=== PATIENT | female | born 1990 | race Caucasian/White ===

== ENCOUNTER 2021-03-17 19:03 | Outpatient (CLI) | payer OTHER | END 2021-03-17 23:59 | disposition home or self-care (01) | LOC: LAB.S 19:03 | PROVIDERS: ATTEND Physician Assistant Medical | DX: R52 Pain, unspecified (principal); Z20.822 Contact with and (suspected) exposure to COVID-19 ==

== ENCOUNTER 2021-04-14 16:14 | Outpatient (CLI) | payer OTHER | END 2021-04-14 16:15 | disposition home or self-care (01) | LOC: LAB.S 16:14 | PROVIDERS: ATTEND Obstetrics & Gynecology | DX: E55.9 Vitamin D deficiency, unspecified (principal) | CPT/HCPCS: 82306 ==

== ENCOUNTER 2021-06-24 13:15 | Outpatient (CLI) | payer OTHER ==
[2021-06-25 09:52] LABS: BILIRUBIN,URINE NEGATIVE (NEGATIVE); GLUCOSE, URINE (UA) NEGATIVE (NEGATIVE); KETONES,URINE (UA) NEGATIVE (NEGATIVE); LEUKOCYTE ESTERASE, URINE NEGATIVE (NEGATIVE); NITRITE,URINE NEGATIVE (NEGATIVE); OCCULT BLOOD,URINE NEGATIVE (NEGATIVE); PROTEIN,URINE NEGATIVE (NEGATIVE); UROBILINOGEN,URINE 0.2 (NORMAL) E.U./dL (NORMAL)
[2021-06-25 09:54] LABS: CLARITY,URINE CLEAR (CLEAR)
[2021-06-25 10:58] LABS: BACTERIA,URINE None Seen /HPF (None Seen); RBC,URINE 0-5 /HPF (0-5); SQUAMOUS EPITHELIAL CELL,UR RARE Squamous (<= Few); WBC,URINE 0-3 /HPF (0-5)
== END 2021-06-24 13:16 | disposition home or self-care (01) ==
LOC: LAB 13:15 → LAB.R 13:16
PROVIDERS: ATTEND Obstetrics & Gynecology
DX: Z32.01 Encounter for pregnancy test, result positive (principal)
CPT/HCPCS: 81001; 87086

== ENCOUNTER 2021-06-30 07:17 | Outpatient (CLI) | payer OTHER ==
--- NOTE | 2021-06-30 15:46 | Ultrasound Report ---
PROCEDURE: OB First Trimester w/TV INDICATIONS: POSITIVE TEST OUTSIDE/PRIOR DATING DATA: Last menstrual period (LMP): 05/10/2021. LMP-based estimated date of delivery (KURT): 02/14/2022. First dating scan (date and location): 06/30/2021. Estimated date of delivery (KURT) from first dating scan: 02/22/2022. TECHNIQUE: Real-time scanning was performed of the fetus and maternal pelvic organs, with image documentation. Endovaginal scanning was also performed to better visualize the fetus and maternal ovaries. COMPARISON: None FINDINGS: Embryo: Single live intrauterine with crown-rump length measuring 0.47 cm measuring 6 week s 1 day Heart rate: heart rate measures 123 bpm. Measurement variability in dating: +/- 4 weeks by LMP, +/- 7 days by mean sac diameter (use before 6 weeks gestation if crown-rump length not able to be measured), +/- 5 days by crown-rump length (6-12 weeks gestation). Maternal organs: Ovaries demonstrate a corpus luteum left ovarian cyst. She is. IMPRESSION: 1. Single live intrauterine measuring 6 weeks 1 day. 2. Recommend follow-up ultrasound for dates and anatomy at 20-22 weeks. Reviewed by: Gabrielle Haskins MD on 06/30/2021 3:44 PM PST Approved by: Gabrielle Haskins MD on 06/30/2021 3:44 PM PST Station ID: [id number]
== END 2021-06-30 07:18 | disposition home or self-care (01) ==
LOC: DI 07:17
PROVIDERS: ATTEND Obstetrics & Gynecology
DX: Z32.01 Encounter for pregnancy test, result positive (principal); O99.891 Other specified diseases and conditions complicating pregnancy; M32.9 Systemic lupus erythematosus, unspecified; O99.280 Endocrine, nutritional and metabolic diseases complicating pregnancy, unspecified trimester; E06.3 Autoimmune thyroiditis; Z36.89 Encounter for other specified antenatal screening; Z3A.01 Less than 8 weeks gestation of pregnancy
CPT/HCPCS: 36415; 81001; 81599; 84443; 85025; 86592; 86762; 86803; 86850; 86900; 86901; 87086; 87340; 87389

== ENCOUNTER 2021-06-30 08:09 | Outpatient (CLI) | payer OTHER ==
[2021-06-30 09:02] LABS: BASOPHILS % (AUTO) 0.5 %; EOSINOPHILS # (AUTO) 0.1 10^3/uL (0.0-0.7); EOSINOPHILS % (AUTO) 1.3 %; HCT - HEMATOCRIT 37.9 % (37.0-47.0); HGB - HEMOGLOBIN 12.9 g/dL (12.0-16.0); LYMPHOCYTES # (AUTO) 2.1 10^3/uL (1.5-3.5); LYMPHOCYTES % (AUTO) 25.6 %; MEAN CORPUSCULAR HEMOGLOBIN 31.2 pg (27.0-31.0); MEAN CORPUSCULAR VOLUME 91.5 fL (81.0-99.0); MEAN PLATELET VOLUME 8.9 fL (7.9-10.8); MONOCYTES # (AUTO) 0.5 10^3/uL (0.0-1.0); MONOCYTES % (AUTO) 5.9 %; NEUTROPHILS # (AUTO) 5.5 10^3/uL (1.5-6.6); NEUTROPHILS % (AUTO) 66.3 %; PLT - PLATELET COUNT 321 10^3/uL (130-450); RED BLOOD COUNT 4.14 10^6/uL (4.20-5.40); RED CELL DISTRIBUTION WIDTH 12.9 % (12.0-15.0); WHITE BLOOD COUNT 8.3 x10^3/uL (4.8-10.8)
[2021-06-30 10:13] LABS: THYROID STIMULATING HORMONE 0.96 uIU/mL (0.34-5.60)
[2021-06-30 16:34] LABS: BILIRUBIN,URINE NEGATIVE (NEGATIVE); GLUCOSE, URINE (UA) NEGATIVE (NEGATIVE); KETONES,URINE (UA) NEGATIVE (NEGATIVE); LEUKOCYTE ESTERASE, URINE NEGATIVE (NEGATIVE); NITRITE,URINE NEGATIVE (NEGATIVE); OCCULT BLOOD,URINE NEGATIVE (NEGATIVE); PROTEIN,URINE NEGATIVE (NEGATIVE); UROBILINOGEN,URINE 0.2 (NORMAL) E.U./dL (NORMAL)
[2021-06-30 16:36] LABS: CLARITY,URINE CLEAR (CLEAR)
[2021-06-30 16:47] LABS: BACTERIA,URINE Rare /HPF (None Seen); RBC,URINE 0-5 /HPF (0-5); SQUAMOUS EPITHELIAL CELL,UR NONE SEEN (<= Few); WBC,URINE 0-3 /HPF (0-5)
[2021-07-02 14:15] LABS: HIV AG/AB 4TH GEN NON-REACTIVE (NON-REACTIVE)
[2021-07-02 14:47] LABS: HEPATITIS B SURFACE ANTIGEN NON-REACTIVE (NON-REACTIVE); HEPATITIS C ANTIBODY NON-REACTIVE (NON-REACTIVE)
== END 2021-06-30 08:10 | disposition home or self-care (01) ==
LOC: LAB 08:09
PROVIDERS: ATTEND Obstetrics & Gynecology
DX: O99.891 Other specified diseases and conditions complicating pregnancy (principal); M32.9 Systemic lupus erythematosus, unspecified; O99.280 Endocrine, nutritional and metabolic diseases complicating pregnancy, unspecified trimester; E06.3 Autoimmune thyroiditis; Z36.89 Encounter for other specified antenatal screening
CPT/HCPCS: 36415; 81001; 81599; 84443; 85025; 86592; 86762; 86803; 86850; 86900; 86901; 87086; 87340; 87389

== ENCOUNTER 2021-07-04 15:14 | Outpatient (CLI) | payer OTHER ==
[2021-07-04 18:11] LABS: ALBUMIN 3.8 g/dL (3.2-5.5); BILIRUBIN,TOTAL 0.5 mg/dL (0.2-1.0); CALCIUM 9.1 mg/dL (8.5-10.3); CREATININE 0.6 mg/dL (0.4-1.0); POTASSIUM 3.7 mmol/L (3.5-5.0); TOTAL PROTEIN 7.8 g/dL (6.7-8.2)
[2021-07-04 18:26] LABS: THYROID STIMULATING HORMONE 0.64 uIU/mL (0.34-5.60)
[2021-07-04 20:45] LABS: ESTIMATED AVERAGE GLUCOSE 97 mg/dL (70-100)
== END 2021-07-04 15:15 | disposition home or self-care (01) ==
LOC: LAB.S 15:14
PROVIDERS: ATTEND Obstetrics & Gynecology
DX: R63.1 Polydipsia (principal); Z32.01 Encounter for pregnancy test, result positive; E55.9 Vitamin D deficiency, unspecified
CPT/HCPCS: 36415; 80053; 82306; 83036; 84443

== ENCOUNTER 2021-07-22 08:02 | Outpatient (CLI) | payer OTHER ==
[2021-07-22 23:29] LABS: CHLAMYDIA TRACHOMATIS DNA NEGATIVE (NEGATIVE); NEISSERIA GONORRHOEAE DNA NEGATIVE (NEGATIVE); TRICHOMONAS VAGINALIS DNA NEGATIVE (NEGATIVE)
== END 2021-07-22 08:03 | disposition home or self-care (01) ==
LOC: LAB.R 08:02
PROVIDERS: ATTEND Obstetrics & Gynecology
DX: Z11.3 Encounter for screening for infections with a predominantly sexual mode of transmission (principal)
CPT/HCPCS: 87491; 87591; 87661

== ENCOUNTER 2021-07-30 10:22 | Outpatient (CLI) | payer OTHER ==
[2021-07-30 14:02] LABS: ALBUMIN 3.7 g/dL (3.2-5.5); ALBUMIN/GLOBULIN RATIO 0.9 (1.0-2.2); BILIRUBIN,TOTAL 0.4 mg/dL (0.2-1.0); CALCIUM 9.2 mg/dL (8.5-10.3); CREATININE 0.6 mg/dL (0.4-1.0); POTASSIUM 3.6 mmol/L (3.5-5.0); TOTAL PROTEIN 7.6 g/dL (6.7-8.2)
[2021-07-30 14:03] LABS: HCT - HEMATOCRIT 37.9 % (37.0-47.0); MEAN CORPUSCULAR HEMOGLOBIN 31.5 pg (27.0-31.0); MEAN CORPUSCULAR HGB CONC 34.3 g/dL (32.0-36.0); MEAN CORPUSCULAR VOLUME 91.8 fL (81.0-99.0); MEAN PLATELET VOLUME 9.5 fL (7.9-10.8); RED BLOOD COUNT 4.13 10^6/uL (4.20-5.40); RED CELL DISTRIBUTION WIDTH 12.9 % (12.0-15.0); WHITE BLOOD COUNT 9.6 x10^3/uL (4.8-10.8)
[2021-07-30 14:14] LABS: CREATININE,URINE 159.4 mg/dL
[2021-07-30 14:19] LABS: THYROID STIMULATING HORMONE 0.8 uIU/mL (0.34-5.60)
[2021-07-30 19:23] LABS: ESTIMATED AVERAGE GLUCOSE 97 mg/dL (70-100)
== END 2021-07-30 10:23 | disposition home or self-care (01) ==
LOC: LAB.S 10:22
PROVIDERS: ATTEND Obstetrics & Gynecology
DX: O99.891 Other specified diseases and conditions complicating pregnancy (principal); M32.9 Systemic lupus erythematosus, unspecified; O99.210 Obesity complicating pregnancy, unspecified trimester; O09.90 Supervision of high risk pregnancy, unspecified, unspecified trimester; E66.01 Morbid (severe) obesity due to excess calories
CPT/HCPCS: 36415; 80053; 82570; 83036; 84156; 84443; 85027; 86787

== ENCOUNTER 2021-08-13 17:00 | Outpatient (CLI) | payer OTHER | END 2021-08-13 17:01 | disposition home or self-care (01) | LOC: LAB 17:00 | PROVIDERS: ATTEND Obstetrics & Gynecology | DX: Z53.9 Procedure and treatment not carried out, unspecified reason (principal) ==

== ENCOUNTER 2021-08-16 16:42 | Outpatient (CLI) | payer OTHER | END 2021-08-16 16:43 | disposition home or self-care (01) | LOC: LAB 16:42 | PROVIDERS: ATTEND Obstetrics & Gynecology | DX: O09.90 Supervision of high risk pregnancy, unspecified, unspecified trimester (principal); O99.210 Obesity complicating pregnancy, unspecified trimester; E66.01 Morbid (severe) obesity due to excess calories | CPT/HCPCS: 36415; 81220 ==

== ENCOUNTER 2021-09-15 11:24 | Outpatient (CLI) | payer OTHER ==
[2021-09-15 12:50] LABS: HCT - HEMATOCRIT 35.7 % (37.0-47.0); HGB - HEMOGLOBIN 12.4 g/dL (12.0-16.0); MEAN CORPUSCULAR HEMOGLOBIN 31.9 pg (27.0-31.0); MEAN CORPUSCULAR HGB CONC 34.7 g/dL (32.0-36.0); MEAN CORPUSCULAR VOLUME 91.8 fL (81.0-99.0); MEAN PLATELET VOLUME 9.3 fL (7.9-10.8); RED BLOOD COUNT 3.89 10^6/uL (4.20-5.40); WHITE BLOOD COUNT 10.8 x10^3/uL (4.8-10.8)
[2021-09-15 13:11] LABS: % IRON SATURATION 22 % (20-50); GLUCOSE,1H PP 50GM DOSE 118; IRON 79 ug/dL (28-170); TOTAL IRON BINDING CAPACITY 353 ug/dL (250-450); TRANSFERRIN 252 mg/dL (192-382)
[2021-09-15 13:21] LABS: THYROID STIMULATING HORMONE 0.36 uIU/mL (0.34-5.60)
[2021-09-15 13:26] LABS: FERRITIN 40.6 ng/mL (11.0-306.8)
== END 2021-09-15 11:25 | disposition home or self-care (01) ==
LOC: LAB 11:24
PROVIDERS: ATTEND Obstetrics & Gynecology
DX: R20.8 Other disturbances of skin sensation (principal); R53.83 Other fatigue; R53.81 Other malaise; Z68.41 Body mass index [BMI] 40.0-44.9, adult
CPT/HCPCS: 36415; 81599; 82105; 82728; 82950; 83540; 84443; 84466; 85027

== ENCOUNTER 2021-09-27 16:17 | Emergency (ER) | payer OTHER ==
--- NOTE | 2021-09-27 16:28 | ED Physician Documentation ---
History of Present Illness - Stated complaint Stated Complaint: DECREASED MOVEMENT - Additonal information Additional information: 30-year-old female presents to the emergency department for evaluation of her . Reports being 19 weeks and has not had any movement for 2 to 3 days. She began feeling movement at approximately 14 weeks. LMP 05/10/2021. Denies any chest pain or shortness of air. No leg swelling. No nausea or vomiting. No loss of fluids or vaginal bleeding. Review of Systems Constitutional: denies: Chills Eyes: reports: Reviewed and negative Ears: reports: Reviewed and negative Nose: reports: Reviewed and negative Throat: reports: Reviewed and negative Cardiac: reports: Reviewed and negative Respiratory: reports: Reviewed and negative GI: reports: Reviewed and negative : reports: Reviewed and negative Skin: reports: Rash Musculoskeletal: reports: Neck pain PD PAST MEDICAL HISTORY - Past Surgical History Past Surgical History: No - Present Medications Home Medications: Ambulatory Orders Medication Instructions Recorded Confirmed Doxepin [SINEquan] 10 mg PO TID PRN #30 capsule 11/09/19 predniSONE [Deltasone] 20 mg PO [id number] #21 tab 11/09/19 predniSONE [Deltasone] 10 mg PO [id number] #42 tab 11/21/19 Labetalol [Trandate] 100 mg PO BID #30 tablet 09/27/21 cephALEXin [Keflex] 500 mg PO BID #14 cap 09/27/21 - Allergies Allergies/Adverse Reactions: Allergies Allergy/AdvReac Type Severity Reaction Status Date / Time Iodinated Contrast Media Allergy Unknown Verified 09/27/21 16:46 sulfamethoxazole Allergy Respiratory Verified 09/27/21 16:46 [From Bactrim] trimethoprim [From Bactrim] Allergy Respiratory Verified 09/27/21 16:46 - Social History Does the pt smoke?: No Smoking Status: Never smoker Does the pt drink ETOH?: No Does the pt have substance abuse?: No - Immunizations Immunizations are current?: Yes - POLST Patient has POLST: No PD ED PE NORMAL - General General: Alert and oriented X 3, No acute distress, Well developed/nourished - HEENT HEENT: Atraumatic, Moist mucous membranes - Neck Neck: Supple, no meningeal sign, No adenopathy - Cardiac Cardiac: RRR, No murmur, No gallop - Respiratory Respiratory: No respiratory distress, Clear bilaterally - Abdomen Abdomen: Normal bowel sounds, Soft, Non tender - Derm Derm: Normal color, Warm and dry, No rash - Extremities Extremities: No deformity, No tenderness to palpate, Normal ROM s pain - Neuro Neuro: Alert and oriented X 3, practice coordinator 2-12 intact Eye Opening: Spontaneous Motor: Obeys Commands Verbal: Oriented GCS Score: 15 - Psych Psych: Normal mood Results - Vitals Vitals: Vital Signs - 24 hr 09/27/21 09/27/21 09/27/21 16:40 17:00 17:30 Temperature 37.2 C Heart Rate 85 87 81 Respiratory 20 19 18 Rate Blood Pressure 162/109 H 158/94 H 148/88 H O2 Saturation 99 99 100 09/27/21 09/27/21 09/27/21 18:00 18:30 19:00 Temperature Heart Rate 78 75 79 Respiratory 20 15 18 Rate Blood Pressure 147/87 H 152/88 H 145/86 H O2 Saturation 100 100 99 Oxygen O2 Source Room air - Labs Labs: Laboratory Tests 09/27/21 09/27/21 09/27/21 16:46 16:46 16:54 WBC 11.9 H RBC 3.79 L Hgb 11.9 L Hct 34.9 L MCV 92.1 MCH 31.4 H MCHC 34.1 RDW 13.0 Plt Count 337 MPV 9.4 Neut # (Auto) 9.1 H Lymph # (Auto) 2.0 [place] # (Auto) 0.6 Eos # (Auto) 0.1 Baso # (Auto) 0.0 Absolute Nucleated RBC 0.00 Nucleated RBC % 0.0 Sodium 134 L Potassium 3.7 Chloride 101 Carbon Dioxide 23 Anion Gap 10.0 BUN 10 Creatinine 0.6 Estimated GFR (MDRD) 117 Glucose 94 Calcium 9.1 Total Bilirubin < 0.2 L AST 23 ALT 29 Alkaline Phosphatase 64 Total Protein 7.0 Albumin 3.2 Globulin 3.8 Albumin/Globulin Ratio 0.8 L Lipase 28 Urine Color YELLOW Urine Clarity CLEAR Urine pH 6.5 Ur Specific [place] 1.025 Urine Protein NEGATIVE Urine Glucose (UA) NEGATIVE Urine Ketones NEGATIVE Urine Occult Blood SMALL H Urine Nitrite NEGATIVE Urine Bilirubin NEGATIVE Urine Urobilinogen 0.2 (NORMAL) Ur Leukocyte Esterase NEGATIVE Urine RBC 0-5 Urine WBC 0-3 Ur Squamous Epith Cells RARE Squamous Urine Bacteria Few Ur Microscopic Review INDICATED Urine Culture Comments NOT INDICATED - Rads (name of study) OB US Radiology: See rad report (Per geospatial information technologist heart rate 145. 18 weeks 6 days. Good movement) PD MEDICAL DECISION MAKING - ED course Complexity details: reviewed results, re-evaluated patient, d/w patient, d/w guidance consultant (Dr. Valverde) ED course: 30-year-old female who is approximately 19 weeks presents emergency department for evaluation of decreased movement over the last 2 to 3 days. She began having movement at about 14 weeks. She presents without any palpitations or chest pain. However her initial blood pressures were quite elevated 160/119. Screening labs were obtained. I did do a limited bedside ultrasound that did show positive heart rate but no movement. OB ultrasound is pending. 0: I did speak with Dr. Valverde OB on-call regarding the patient's elevated blood pressure. He feels it is extremely unlikely for her to have preeclampsia before 20 weeks. He would recommend labetalol 100 mg twice daily. He would also recommend a OB ultrasound to show appropriate heart rate and movement. 1920: OB ultrasound has been completed. Patient was given 100 mg of labetalol with good reduction in her heart rate. She will be discharged with labetalol twice daily. This case was discussed briefly with Dr. Valverde. Patient will follow up in outpatient OB clinic. Patient is to return to the ER for any leg swelling, nausea vomiting loss of fluids. Clinically the patient does not present as having preeclampsia or HELLP syndrome Small amount of bacteria will be treated with Keflex Departure - Departure Disposition: 01 Home, Self Care Clinical Impression: Elevated blood pressure affecting in second trimester, antepartum, Asymptomatic bacteriuria during Condition: Stable Record reviewed to determine appropriate education?: Yes Prescriptions: cephALEXin [Keflex] 500 mg PO BID #14 cap Labetalol [Trandate] 100 mg PO BID #30 tablet Comments: Vero you were seen today in the ER for concerns of poor movement. The ultrasound today shows that you are 18 weeks 6 days with good heart rate and movement. 9 however you did present with a fairly elevated blood pressure of 160/119. We were able to get improved blood pressure control here in the emergency department by giving you a medication called labetalol. A prescription for labetalol has been sent to your pharmacy you should take it twice daily. Please schedule very close follow-up with OB. You also have some bacteria in your urine. This is typically treated in and a prescription for Keflex has also been sent. If at any point you have sudden chest pain, leg swelling uncontrolled vomiting, lower abdominal pain nausea or vomiting then please return immediately to the ER for a second evaluation.
[2021-09-27] MEDS ORDERED: LABETALOL 100 MG TABLET PO STA (16:47)
[2021-09-27 16:52] LABS: BASOPHILS % (AUTO) 0.3 %; EOSINOPHILS # (AUTO) 0.1 10^3/uL (0.0-0.7); EOSINOPHILS % (AUTO) 0.7 %; HCT - HEMATOCRIT 34.9 % (37.0-47.0); HGB - HEMOGLOBIN 11.9 g/dL (12.0-16.0); MEAN CORPUSCULAR HEMOGLOBIN 31.4 pg (27.0-31.0); MEAN CORPUSCULAR HGB CONC 34.1 g/dL (32.0-36.0); MEAN CORPUSCULAR VOLUME 92.1 fL (81.0-99.0); MEAN PLATELET VOLUME 9.4 fL (7.9-10.8); MONOCYTES # (AUTO) 0.6 10^3/uL (0.0-1.0); MONOCYTES % (AUTO) 5.2 %; NEUTROPHILS # (AUTO) 9.1 10^3/uL (1.5-6.6); NEUTROPHILS % (AUTO) 76.4 %; PLT - PLATELET COUNT 337 10^3/uL (130-450); RED BLOOD COUNT 3.79 10^6/uL (4.20-5.40); WHITE BLOOD COUNT 11.9 x10^3/uL (4.8-10.8)
[2021-09-27 17:03] LABS: BILIRUBIN,URINE NEGATIVE (NEGATIVE); GLUCOSE, URINE (UA) NEGATIVE (NEGATIVE); KETONES,URINE (UA) NEGATIVE (NEGATIVE); LEUKOCYTE ESTERASE, URINE NEGATIVE (NEGATIVE); NITRITE,URINE NEGATIVE (NEGATIVE); OCCULT BLOOD,URINE SMALL (NEGATIVE); PH,URINE 6.5 PH (5.0-7.5); PROTEIN,URINE NEGATIVE (NEGATIVE); UROBILINOGEN,URINE 0.2 (NORMAL) E.U./dL (NORMAL)
[2021-09-27 17:04] LABS: CLARITY,URINE CLEAR (CLEAR)
[2021-09-27 17:06] LABS: ALBUMIN 3.2 g/dL (3.2-5.5); ALBUMIN/GLOBULIN RATIO 0.8 (1.0-2.2); ALKALINE PHOSPHATASE 64 IU/L (42-121); ALT ALANINE AMINOTRANSFERASE 29 IU/L (10-60); AST ASPARTATE AMINOTRANSFERASE 23 IU/L (10-42); BILIRUBIN,TOTAL < 0.2 mg/dL (0.2-1.0); BUN - BLOOD UREA NITROGEN 10 mg/dL (6-20); CALCIUM 9.1 mg/dL (8.5-10.3); CARBON DIOXIDE - CO2 23 mmol/L (21-32); CHLORIDE 101 mmol/L (101-111); CREATININE 0.6 mg/dL (0.4-1.0); GFR - MDRD 117 (>89); GLUCOSE 94 mg/dL (70-100); LIPASE 28 U/L (22-51); POTASSIUM 3.7 mmol/L (3.5-5.0); SODIUM 134 mmol/L (135-145)
[2021-09-27 17:22] LABS: BACTERIA,URINE Few /HPF (None Seen); RBC,URINE 0-5 /HPF (0-5); SQUAMOUS EPITHELIAL CELL,UR RARE Squamous (<= Few); WBC,URINE 0-3 /HPF (0-5)
[2021-09-27 19:47] VITALS: BP 144/91
--- NOTE | 2021-09-27 19:50 | Ultrasound Report ---
PROCEDURE: OB 14+ Weeks INDICATIONS: decreased movement; ? FHR OUTSIDE/PRIOR DATING DATA: Last menstrual period (LMP): 09/27/2021. LMP-based estimated date of delivery (KURT): 05/10/2021. First dating scan (date and location): 06/30/2021. Estimated date of delivery (KURT) from first dating scan: 02/22/2022. The below data below was generated using the ultrasound KURT of 02/22/2022 TECHNIQUE: Real-time scanning was performed of the fetus, with image documentation and biometric measurements. COMPARISON: None. FINDINGS: General: A single living intrauterine gestation is present. Presentation: Vertex Placenta: Placental position is anterior, without previa. Amniotic fluid index: 17.9 cm, normal for gestational age. heart rate: 145 beats per minute. Maternal cervical canal: 4.5 cm long; normal length is 2.5 cm or more. Anatomic survey: Diaphragm: Diaphragm is intact. Stomach: Left-sided stomach is present. Kidneys: No hydronephrosis. Normal is less than 5 mm in 2nd trimester, less than 7 mm in 3rd trimester. Cord: 3-vessel cord has orthotopic insertion. Bladder: Normal in size. IMPRESSION: 1. Live intrauterine with an estimated gestational age of 18 weeks 6 days by initial ultras ound. 2. Cervix is closed measuring 4.5 cm. Reviewed by: Ronaldo Jackson on 09/27/2021 7:47 PM PST Approved by: Ronaldo Jackson on 09/27/2021 7:47 PM PST Station ID: [id number] Bone Density - [id number]
== END 2021-09-27 20:02 | disposition home or self-care (01) ==
LOC: ED 16:17
DX: O36.8120 Decreased fetal movements, second trimester, not applicable or unspecified (principal); O16.2 Unspecified maternal hypertension, second trimester; O26.892 Other specified pregnancy related conditions, second trimester; R82.71 Bacteriuria; Z3A.19 19 weeks gestation of pregnancy
CPT/HCPCS: 36415; 76805; 80053; 81001; 83690; 85025; 99283; 99284; A9270; 81003; 87086

== ENCOUNTER 2021-10-07 12:44 | Outpatient (CLI) | payer OTHER ==
--- NOTE | 2021-10-08 10:00 | Ultrasound Report ---
PROCEDURE: OB Detailed Eval INDICATIONS: SUPERVISION OF OUTSIDE/PRIOR DATING DATA: Last menstrual period (LMP): 09/27/2021. LMP-based estimated date of delivery (KURT): 05/10/2021. First dating scan (date and location): 06/30/2021. Estimated date of delivery (KURT) from first dating scan: 02/22/2022. T The below data below was generated using the ultrasound KURT of 02/22/2022. TECHNIQUE: Real-time scanning was performed of the fetus, with image documentation and biometric measurements. COMPARISON: OB ultrasound, 09/27/2021 and 06/30/2021. FINDINGS: General: A single living intrauterine gestation is present. Presentation: Variable Placenta: Placental position is anterior, without previa. Amniotic fluid index: 15.5 cm; largest pocket 5.2 cm. heart rate: 148 beats per minute. Maternal cervical canal: 4.7 cm long; normal length is 2.5 cm or more. biometrics: Biparietal diameter: 20 weeks 2 days. Head circumference: 20 weeks 0 day. Abdominal circumference: 21 weeks 0 day. Femur length: 20 weeks 4 days. Estimated gestational age from initial scan: 20 weeks 2 days. Composite gestational age from present scan: 20 weeks 3 days Estimated weight and percentile: 372 g; 70%. Measurement variability in biometric dating: +/- 10 days from 12-20 weeks gestation, +/- 2 weeks from 20-30 weeks gestation, +/- 3 weeks at 30 weeks gestation or later. Anatomic survey: Neuro: Ventricles are normal at less than 10 mm. Cisterna magna is normal at 3-11 mm. Cerebellum i s normal in size and morphology. Nuchal skin fold: Normal at less than 6 mm between 14 and 20 weeks gestational age. Face: Nose and lips, facial profile are normal. Spine: Not well seen due to lie. Heart: 4-chambered heart is present, with normal ventricular outflow tracts. Diaphragm: Diaphragm is intact. Stomach: Left-sided stomach is present. Kidneys: No hydronephrosis. Normal is less than 5 mm in 2nd trimester, less than 7 mm in 3rd trimester. Cord: 3 vessel cord has orthotopic insertion. Bladder: Normal in size. Extremities: All 4 extremities are visualized. IMPRESSION: 1. A single living intrauterine gestation with appropriate interval growth. 2. The estimated weight is at the 70th percentile. 3. Normal DONNA. 4. Suboptimal visualization of spine. Otherwise normal anatomic survey. Reviewed by: Radames Deal MD on 10/08/2021 9:58 AM PST Approved by: Radames Deal MD on 10/08/2021 9:58 AM PST Station ID: [id number]
== END 2021-10-07 12:45 | disposition home or self-care (01) ==
LOC: DI 12:44
PROVIDERS: ATTEND Obstetrics & Gynecology
DX: O09.92 Supervision of high risk pregnancy, unspecified, second trimester (principal); Z36.89 Encounter for other specified antenatal screening; Z3A.20 20 weeks gestation of pregnancy

== ENCOUNTER 2021-10-08 11:29 | Emergency (ER) | payer OTHER ==
--- NOTE | 2021-10-08 11:58 | ED Physician Documentation ---
PD HPI DYSPNEA - Stated complaint Stated Complaint: HIGH HEART RATE - Chief complaint Chief Complaint: Cardiac - History obtained from History obtained from: Patient - History of Present Illness Timing - onset: How many hours ago (08 07/2), Today Timing - onset during: Light activity Timing - duration: Minutes (20-30) Timing - details: Abrupt onset (She was at work sitting in noted her watch to alarm her that her heart rate was tachycardic approximately 130. 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 The nurse didn't have BP cuff nor ox), Now resolved Improved by: Rest Associated symptoms: Bilateral edema (has noted mild edema around ankles for few days. Has been on Nifedipine for the past week.). No: Fever, Cough, Wheezing Similar symptoms before: Has not had sx before Recently seen: Clinic, Emergency Dept (had elevated BP and started on beta brianna. This was changed to Nifedipine a week ago due to feeling lightheaded with the former.) Review of Systems Constitutional: denies: Fever, Chills Nose: denies: Rhinorrhea / runny nose, Congestion Throat: denies: Sore throat Respiratory: denies: Cough GI: denies: Abdominal Pain, Nausea, Vomiting, Diarrhea : denies: Dysuria, Frequency Musculoskeletal: reports: Extremity swelling (mild the past week) PD PAST MEDICAL HISTORY - Past Medical History Cardiovascular: Hypertension Respiratory: None Neuro: None Endocrine/Autoimmune: None - Past Surgical History Past Surgical History: No - Present Medications Home Medications: Ambulatory Orders Medication Instructions Recorded Confirmed Aspirin [[place] Aspirin] 81 mg PO DAILY 10/08/21 10/08/21 Cetirizine [ZyrTEC] 40 mg PO DAILY 10/08/21 10/08/21 Doxylamine Succinate [Unisom] 25 mg PO HS 10/08/21 10/08/21 Famotidine [Pepcid] 40 mg PO DAILY 10/08/21 10/08/21 NIFEdipine [Procardia Xl] 30 mg PO DAILY 10/08/21 10/08/21 - Allergies Allergies/Adverse Reactions: Allergies Allergy/AdvReac Type Severity Reaction Status Date / Time Iodinated Contrast Media Allergy Unknown Verified 10/08/21 11:37 sulfamethoxazole Allergy Respiratory Verified 10/08/21 11:37 [From Bactrim] trimethoprim [From Bactrim] Allergy Respiratory Verified 10/08/21 11:37 - Social History Does the pt smoke?: No Smoking Status: Never smoker Does the pt drink ETOH?: No Does the pt have substance abuse?: No - Immunizations Immunizations are current?: Yes - POLST Patient has POLST: No PD ED PE NORMAL - Vitals Vital signs reviewed: Yes - General General: Alert and oriented X 3, No acute distress, Well developed/nourished - Neck Neck: Supple, no meningeal sign, No adenopathy - Cardiac Cardiac: RRR, No murmur - Respiratory Respiratory: Clear bilaterally - Abdomen Abdomen: Soft, Non tender, Other (gravid to fundus at umbilicus. ) - Female Female : Deferred - Rectal Rectal: Deferred - Back Back: No CVA TTP - Derm Derm: Normal color, Warm and dry - Extremities Extremities: No calf tenderness / cord, Other (minimal edema around ankles. ) - Neuro Neuro: Alert and oriented X 3, No motor deficit, No sensory deficit - Psych Psych: Normal mood, Normal affect Results - Vitals Vitals: Vital Signs - 24 hr 10/08/21 10/08/21 10/08/21 11:31 11:57 13:32 Temperature 36.2 C L Heart Rate 96 85 Heart Rate [ 83 Sitting] Heart Rate [ 91 Standing] Heart Rate [ 84 Supine] Respiratory 16 15 Rate Blood Pressure 141/89 H 136/94 H Blood Pressure 127/84 H [Sitting] Blood Pressure 130/94 H [Standing] Blood Pressure 126/83 H [Supine] O2 Saturation 100 99 10/08/21 13:37 Temperature Heart Rate 78 Heart Rate [ Sitting] Heart Rate [ Standing] Heart Rate [ Supine] Respiratory 19 Rate Blood Pressure 133/93 H Blood Pressure [Sitting] Blood Pressure [Standing] Blood Pressure [Supine] O2 Saturation 98 Oxygen O2 Source Room air - EKG (time done) 11:46 Rate: Rate (enter#) (83) Rhythm: NSR [place]: Normal Intervals: Normal OK QRS: Normal Ischemia: Normal ST segments. No: ST elevation c/w ischemia, ST depression - Labs Labs: Laboratory Tests 10/08/21 10/08/21 10/08/21 12:23 12:37 12:37 WBC 11.8 H RBC 3.76 L Hgb 11.8 L Hct 34.3 L MCV 91.2 MCH 31.4 H MCHC 34.4 RDW 13.2 Plt Count 319 MPV 9.4 Neut # (Auto) 8.8 H Lymph # (Auto) 2.2 [place] # (Auto) 0.6 Eos # (Auto) 0.0 Baso # (Auto) 0.1 Absolute Nucleated RBC 0.00 Nucleated RBC % 0.0 Sodium 134 L Potassium 3.9 Chloride 103 Carbon Dioxide 23 Anion Gap 8.0 BUN 8 Creatinine 0.5 Estimated GFR (MDRD) 144 Glucose 86 Calcium 8.8 Magnesium 1.8 Total Bilirubin 0.3 AST 24 ALT 30 Alkaline Phosphatase 68 Total Protein 7.2 Albumin 3.4 Globulin 3.8 Albumin/Globulin Ratio 0.9 L Lipase 25 Free T4 Free T3 pg/mL Urine Color YELLOW Urine Clarity CLEAR Urine pH 6.5 Ur Specific [place] 1.010 Urine Protein NEGATIVE Urine Glucose (UA) NEGATIVE Urine Ketones NEGATIVE Urine Occult Blood NEGATIVE Urine Nitrite NEGATIVE Urine Bilirubin NEGATIVE Urine Urobilinogen 0.2 (NORMAL) Ur Leukocyte Esterase NEGATIVE Ur Microscopic Review NOT INDICATED Urine Culture Comments NOT INDICATED 10/08/21 12:37 WBC RBC Hgb Hct MCV MCH MCHC RDW Plt Count MPV Neut # (Auto) Lymph # (Auto) [place] # (Auto) Eos # (Auto) Baso # (Auto) Absolute Nucleated RBC Nucleated RBC % Sodium Potassium Chloride Carbon Dioxide Anion Gap BUN Creatinine Estimated GFR (MDRD) Glucose Calcium Magnesium Total Bilirubin AST ALT Alkaline Phosphatase Total Protein Albumin Globulin Albumin/Globulin Ratio Lipase Free T4 0.81 Free T3 pg/mL 2.84 Urine Color Urine Clarity Urine pH Ur Specific [place] Urine Protein Urine Glucose (UA) Urine Ketones Urine Occult Blood Urine Nitrite Urine Bilirubin Urine Urobilinogen Ur Leukocyte Esterase Ur Microscopic Review Urine Culture Comments PD MEDICAL DECISION MAKING - ED course Complexity details: reviewed results, considered differential (Had some tachycardia with feeling of lightheaded and mild dyspnea. No chest pain. Unclear whether primary tachycardia such as SVT versus appropriate tachycardia from low blood pressure. School nurse did not have BP cuff nor oximeter. Patient feeling okay after resting/sitting.), d/w technology methodology consultant (Dr. Valverde, enthone solder stripper. He does not suggest any further testing. ) ED course: Has been on nifedipine for the past week. Orthostatics here are okay. Consider possibly some under hydration with combined with medication side effect and having been sitting upright. However cannot exclude a brief episode of SVT or such. She has improved well and has great oxygenation and no chest pain and no calf tenderness. Clinically doubt PE. No URI symptoms so unlikely pneumonia etc. Departure - Departure Disposition: 01 Home, Self Care Clinical Impression: Heart rate fast, Light-headed feeling Qualifiers: Weeks of gestation: 20 weeks Qualified Code(s): Z3A.20 - 20 weeks gestation of Condition: Stable Record reviewed to determine appropriate education?: Yes Follow-Up: Mary Dobbs MD [Provider Admit Priv/Credential] - Comments: Your basic blood tests of blood count and electrolytes, blood sugar, kidney function are normal here. Your EKG and heart rhythm are normal. No signs of a drop in blood pressure with sitting to standing. Its unclear the cause of your fast heart rate and lightheadedness earlier today. It may been an effect from some under hydration coupled with the new medication nifedipine. I talked with Dr. Vlaverde who is on-call for PRODUCTION INTERN. At this point he suggested just seeing how you do with your current medications and good hydration and recheck if recurring symptoms. I did order some test to evaluate your thyroid and the results of those are still pending. We will call if your urine test is abnormal. Discharge Date/Time: 10/08/21 14:17
[2021-10-08 12:46] LABS: BASOPHILS # (AUTO) 0.1 10^3/uL (0.0-0.1); BASOPHILS % (AUTO) 0.4 %; EOSINOPHILS % (AUTO) 0.3 %; HCT - HEMATOCRIT 34.3 % (37.0-47.0); HGB - HEMOGLOBIN 11.8 g/dL (12.0-16.0); LYMPHOCYTES # (AUTO) 2.2 10^3/uL (1.5-3.5); LYMPHOCYTES % (AUTO) 18.7 %; MEAN CORPUSCULAR HEMOGLOBIN 31.4 pg (27.0-31.0); MEAN CORPUSCULAR HGB CONC 34.4 g/dL (32.0-36.0); MEAN CORPUSCULAR VOLUME 91.2 fL (81.0-99.0); MEAN PLATELET VOLUME 9.4 fL (7.9-10.8); MONOCYTES # (AUTO) 0.6 10^3/uL (0.0-1.0); MONOCYTES % (AUTO) 5.4 %; NEUTROPHILS # (AUTO) 8.8 10^3/uL (1.5-6.6); NEUTROPHILS % (AUTO) 74.7 %; PLT - PLATELET COUNT 319 10^3/uL (130-450); RED BLOOD COUNT 3.76 10^6/uL (4.20-5.40); RED CELL DISTRIBUTION WIDTH 13.2 % (12.0-15.0); WHITE BLOOD COUNT 11.8 x10^3/uL (4.8-10.8)
[2021-10-08 12:57] LABS: ALBUMIN 3.4 g/dL (3.2-5.5); ALBUMIN/GLOBULIN RATIO 0.9 (1.0-2.2); BILIRUBIN,TOTAL 0.3 mg/dL (0.2-1.0); CALCIUM 8.8 mg/dL (8.5-10.3); CREATININE 0.5 mg/dL (0.4-1.0); MAGNESIUM 1.8 mg/dL (1.7-2.8); POTASSIUM 3.9 mmol/L (3.5-5.0); TOTAL PROTEIN 7.2 g/dL (6.7-8.2)
[2021-10-08 13:48] LABS: BILIRUBIN,URINE NEGATIVE (NEGATIVE); GLUCOSE, URINE (UA) NEGATIVE (NEGATIVE); KETONES,URINE (UA) NEGATIVE (NEGATIVE); LEUKOCYTE ESTERASE, URINE NEGATIVE (NEGATIVE); NITRITE,URINE NEGATIVE (NEGATIVE); OCCULT BLOOD,URINE NEGATIVE (NEGATIVE); PH,URINE 6.5 PH (5.0-7.5); PROTEIN,URINE NEGATIVE (NEGATIVE); UROBILINOGEN,URINE 0.2 (NORMAL) E.U./dL (NORMAL)
[2021-10-08 13:51] LABS: CLARITY,URINE CLEAR (CLEAR)
[2021-10-08 13:59] LABS: FREE T3 2.84 pg/mL (2.5-3.9)
[2021-10-08 14:01] LABS: FREE T4 (FREE THYROXINE) 0.81 ng/dL (0.58-1.64)
[2021-10-08 14:18] VITALS: BP 133/93
== END 2021-10-08 14:17 | disposition home or self-care (01) ==
LOC: ED 11:29
DX: O99.412 Diseases of the circulatory system complicating pregnancy, second trimester (principal); R00.0 Tachycardia, unspecified; O10.019 Pre-existing essential hypertension complicating pregnancy, unspecified trimester; Z3A.20 20 weeks gestation of pregnancy
CPT/HCPCS: 36415; 80053; 81001; 81003; 83690; 83735; 84439; 84481; 85025; 87086; 93005; 99282; 99284

== ENCOUNTER 2021-11-15 16:45 | Outpatient (CLI) | payer OTHER ==
[2021-11-15 20:28] LABS: BILIRUBIN,URINE NEGATIVE (NEGATIVE); GLUCOSE, URINE (UA) NEGATIVE (NEGATIVE); KETONES,URINE (UA) NEGATIVE (NEGATIVE); LEUKOCYTE ESTERASE, URINE NEGATIVE (NEGATIVE); NITRITE,URINE NEGATIVE (NEGATIVE); OCCULT BLOOD,URINE TRACE-INTA (NEGATIVE); PROTEIN,URINE NEGATIVE (NEGATIVE); UROBILINOGEN,URINE 0.2 (NORMAL) E.U./dL (NORMAL)
[2021-11-15 20:35] LABS: CLARITY,URINE CLEAR (CLEAR)
[2021-11-15 20:55] LABS: BACTERIA,URINE Rare /HPF (None Seen); RBC,URINE 0-5 /HPF (0-5); SQUAMOUS EPITHELIAL CELL,UR RARE Squamous (<= Few); WBC,URINE 0-3 /HPF (0-5)
== END 2021-11-15 23:59 | disposition home or self-care (01) ==
LOC: LAB.S 16:45
PROVIDERS: ATTEND Physician Assistant Medical
DX: R30.0 Dysuria (principal)
CPT/HCPCS: 81001; 87086

== ENCOUNTER 2021-11-21 23:45 | Outpatient (CLI) | payer OTHER ==
[2021-11-22 00:31] LABS: BILIRUBIN,URINE NEGATIVE (NEGATIVE); CLARITY,URINE CLEAR (CLEAR); GLUCOSE, URINE (UA) NEGATIVE (NEGATIVE); KETONES,URINE (UA) NEGATIVE (NEGATIVE); LEUKOCYTE ESTERASE, URINE NEGATIVE (NEGATIVE); NITRITE,URINE NEGATIVE (NEGATIVE); OCCULT BLOOD,URINE TRACE-INTA (NEGATIVE); PH,URINE 6.5 PH (5.0-7.5); PROTEIN,URINE NEGATIVE (NEGATIVE); UROBILINOGEN,URINE 0.2 (NORMAL) E.U./dL (NORMAL)
[2021-11-22 00:37] LABS: RBC,URINE 0-5 /HPF (0-5); SQUAMOUS EPITHELIAL CELL,UR MOD Squamous (<= Few); WBC,URINE 0-3 /HPF (0-5)
[2021-11-22 00:38] LABS: BACTERIA,URINE Rare /HPF (None Seen)
--- NOTE | 2021-11-22 00:40 | PROVIDER PROGRESS NOTE ---
- HPI Chief Complaint: Decreased movement - Exam General- NAD Abdomen- soft, nontender, gravid BP- 140/81 - Procedures OB Procedure Performed: NST Diagnosis/Indication for NST: Decreased movement NST Procedure: heart rate baseline-140 beats per minutes Moderate variability Accelerations 10x10 Decelerations none Contractions none NST reactive and reassuring Service Date of procedure: 11/22/21 Findings: Lab Results x24hrs 11/22/21 00:25 Urine Color YELLOW Urine Clarity CLEAR (CLEAR) Urine pH 6.5 PH PH (5.0-7.5) Ur Specific [place] 1.010 (1.002-1.030) Urine Protein NEGATIVE mg/dL mg/dL (NEGATIVE) Urine Glucose (UA) NEGATIVE mg/dL mg/dL (NEGATIVE) Urine Ketones NEGATIVE mg/dL mg/dL (NEGATIVE) Urine Occult Blood [place]ACE-[place] (NEGATIVE) Urine Nitrite NEGATIVE (NEGATIVE) Urine Bilirubin NEGATIVE (NEGATIVE) Urine Urobilinogen 0.2 (NORMAL) E.U./dL E.U./dL (NORMAL) Ur Leukocyte Esterase NEGATIVE (NEGATIVE) Urine RBC 0-5 /HPF /HPF (0-5) Urine WBC 0-3 /HPF /HPF (0-5) Ur Squamous Epith Cells MOD Squamous H (<= Few) Urine Bacteria Rare /HPF /HPF (None Seen) Urine Culture Comments NOT INDICATED - Plan Plan: 31-year-old G1, P0 at 26 weeks 6 days who presents with complaints of decreased movement. #Decreased movementpatient reports movement has been decreased throughout the day. External monitoring appropriate for gestational age. The patient noted movement on arrival to triage. Bedside ultrasound also showed movement which the patient appreciated. #History of UTIUA within normal limits #Chronic hypertensionon nifedipine blood pressures at baseline.
[2021-11-22 01:19] VITALS: BP 120/87
== END 2021-11-22 01:10 | disposition home or self-care (01) ==
LOC: WFO 23:45 → FBP 23:47 → WFO 11-22 01:10
PROVIDERS: ATTEND Obstetrics & Gynecology
DX: O36.8120 Decreased fetal movements, second trimester, not applicable or unspecified (principal); O16.2 Unspecified maternal hypertension, second trimester; Z3A.26 26 weeks gestation of pregnancy
CPT/HCPCS: 59025; 81001; 87086; 99213

== ENCOUNTER 2021-11-30 17:08 | Outpatient (CLI) | payer OTHER | END 2021-11-30 17:09 | disposition home or self-care (01) | LOC: LAB 17:08 | PROVIDERS: ATTEND Physician Assistant Medical | DX: Z53.9 Procedure and treatment not carried out, unspecified reason (principal) ==

== ENCOUNTER 2021-12-08 12:19 | Outpatient (CLI) | payer OTHER ==
[2021-12-08 12:22] LABS: HCT - HEMATOCRIT 35.1 % (37.0-47.0); MEAN CORPUSCULAR HEMOGLOBIN 31.7 pg (27.0-31.0); MEAN CORPUSCULAR HGB CONC 34.2 g/dL (32.0-36.0); MEAN CORPUSCULAR VOLUME 92.6 fL (81.0-99.0); MEAN PLATELET VOLUME 9.2 fL (7.9-10.8); RED BLOOD COUNT 3.79 10^6/uL (4.20-5.40); RED CELL DISTRIBUTION WIDTH 13.3 % (12.0-15.0); WHITE BLOOD COUNT 11.2 x10^3/uL (4.8-10.8)
== END 2021-12-08 23:59 | disposition home or self-care (01) ==
LOC: LAB 12:19
PROVIDERS: ATTEND Obstetrics & Gynecology
DX: O09.90 Supervision of high risk pregnancy, unspecified, unspecified trimester (principal); Z36.89 Encounter for other specified antenatal screening
CPT/HCPCS: 36415; 82950; 85027

== ENCOUNTER 2021-12-31 07:20 | Outpatient (CLI) | payer OTHER ==
--- NOTE | 2021-12-31 14:17 | Ultrasound Report ---
PROCEDURE: OB Limited INDICATIONS: SUPERVISION OF HIGH RISK OUTSIDE/PRIOR DATING DATA: Last menstrual period (LMP): 05/10/2021. LMP-based estimated date of delivery (KURT): 02/14/2022. First dating scan (date and location): 06/30/2021. Estimated date of delivery (KURT) from first dating scan: 02/22/2022. TECHNIQUE: Real-time scanning was performed of the fetus, with image documentation. Endovaginal scanning: None COMPARISON: 10/07/2021 FINDINGS: A single living intrauterine gestation is present. Presentation: Vertex Placenta: Placental position is anterior, without previa. Amniotic fluid index: 13 cm cm, normal for gestational age. Largest vertical pocket 3.71 cm heart rate: 143 beats per minutes. Maternal cervical canal: 3.69 cm long; normal length is 2.5 cm or more. Estimated gestational age from initial scan: 32 week 3 day. anatomy: spine is not perfectly seen, but appears to be within normal limits. Remaining v isualized anatomy remains unremarkable. IMPRESSION: Single live intrauterine consistent with a 32 week 3 day gestation Reviewed by: Abrahan Rodriguez MD on 12/31/2021 1:16 PM IGOR Approved by: Abrahan Rodriguez MD on 12/31/2021 1:16 PM IGOR Station ID: [id number]
== END 2021-12-31 07:21 | disposition home or self-care (01) ==
LOC: DI 07:20
PROVIDERS: ATTEND Obstetrics & Gynecology
DX: O09.93 Supervision of high risk pregnancy, unspecified, third trimester (principal); O10.913 Unspecified pre-existing hypertension complicating pregnancy, third trimester; Z3A.32 32 weeks gestation of pregnancy

== ENCOUNTER 2021-12-31 08:14 | Outpatient (CLI) | payer OTHER ==
[2021-12-31 09:30] LABS: BASOPHILS % (AUTO) 0.2 %; EOSINOPHILS # (AUTO) 0.1 10^3/uL (0.0-0.7); EOSINOPHILS % (AUTO) 0.6 %; HCT - HEMATOCRIT 37.7 % (37.0-47.0); HGB - HEMOGLOBIN 12.7 g/dL (12.0-16.0); LYMPHOCYTES % (AUTO) 22.2 %; MEAN CORPUSCULAR HEMOGLOBIN 31.4 pg (27.0-31.0); MEAN CORPUSCULAR HGB CONC 33.7 g/dL (32.0-36.0); MEAN CORPUSCULAR VOLUME 93.3 fL (81.0-99.0); MEAN PLATELET VOLUME 9.7 fL (7.9-10.8); MONOCYTES # (AUTO) 0.5 10^3/uL (0.0-1.0); MONOCYTES % (AUTO) 5.1 %; NEUTROPHILS # (AUTO) 6.4 10^3/uL (1.5-6.6); NEUTROPHILS % (AUTO) 71.2 %; PLT - PLATELET COUNT 364 10^3/uL (130-450); RED BLOOD COUNT 4.04 10^6/uL (4.20-5.40); RED CELL DISTRIBUTION WIDTH 13.2 % (12.0-15.0)
[2021-12-31 09:40] LABS: CREATININE,URINE 80.9 mg/dL; PROTEIN/CREATININE RATIO,URINE 0.1 (<=0.2)
[2021-12-31 09:41] LABS: ALBUMIN 3.3 g/dL (3.2-5.5); ALBUMIN/GLOBULIN RATIO 0.8 (1.0-2.2); BILIRUBIN,TOTAL 0.6 mg/dL (0.2-1.0); CALCIUM 9.2 mg/dL (8.5-10.3); CREATININE 0.6 mg/dL (0.4-1.0); POTASSIUM 4.2 mmol/L (3.5-5.0); TOTAL PROTEIN 7.4 g/dL (6.7-8.2)
--- NOTE | 2021-12-31 11:05 | PROCEDURE REPORT ---
- HPI Diagnosis/Indication for NST: Pre- Hypertension Current EDU 02/22/22 Gestation 32 Weeks and 3 Days 1 Para 0 Vital Signs Temperature 98.8 F 12/31/21 08:34 Heart Rate 81 12/31/21 08:34 Respiratory Rate 18 12/31/21 08:34 Blood Pressure 144/92 H 12/31/21 08:34 Temperature 98.8 F 12/31/21 08:34 Heart Rate 81 12/31/21 08:34 Respiratory Rate 18 12/31/21 08:34 Blood Pressure 144/92 H 12/31/21 08:34 O2 Saturation - NST Procedure NST Procedure Start Date 12/31/21 Start Time 08:35 Stop Time 09:10 Vibroacoustic Stimulation Used No Patient States Movement Yes EFM: 130s, moderate variability, positive 15x15 accelerations, no decelerations [place]: no contractions NST reactive - Results and Plan Plan: 31yo at 32.3w presenting for scheduled NST for chronic hypertension treated with nifedipine 30mg CR - NST reactive - Initial BPs 152/92 and preeclampsia labs obtained. LFTs noted to elevated. Patient reports testing positive for COVID-19 a few weeks ago and is currently positive. We discussed LFTs may be elevated due to COVID-19, but we will repeat labs in 2d to monitor for superimposed preeclampsia. - Currently taking nifedipine 30mg CR qd, will increase to 30mg q12. - RTC 2d for BP check and repeat labs, and NST if indicated.
[2021-12-31 12:06] VITALS: BP 129/86
== END 2021-12-31 12:00 | disposition home or self-care (01) ==
LOC: WFO 08:14 → FBP 08:16 → WFO 12:00
PROVIDERS: ATTEND Obstetrics & Gynecology
DX: O10.913 Unspecified pre-existing hypertension complicating pregnancy, third trimester (principal); R79.89 Other specified abnormal findings of blood chemistry; Z86.16 Personal history of COVID-19; Z3A.32 32 weeks gestation of pregnancy; Z79.899 Other long term (current) drug therapy; O09.93 Supervision of high risk pregnancy, unspecified, third trimester
CPT/HCPCS: 36415; 59025; 80053; 82570; 84156; 85025; 99214

== ENCOUNTER 2022-01-01 18:24 | Outpatient (CLI) | payer OTHER ==
[2022-01-01 19:04] LABS: BASOPHILS % (AUTO) 0.2 %; EOSINOPHILS # (AUTO) 0.1 10^3/uL (0.0-0.7); EOSINOPHILS % (AUTO) 0.8 %; HCT - HEMATOCRIT 35.4 % (37.0-47.0); LYMPHOCYTES # (AUTO) 2.3 10^3/uL (1.5-3.5); LYMPHOCYTES % (AUTO) 22.6 %; MEAN CORPUSCULAR HEMOGLOBIN 31.5 pg (27.0-31.0); MEAN CORPUSCULAR HGB CONC 33.9 g/dL (32.0-36.0); MEAN CORPUSCULAR VOLUME 92.9 fL (81.0-99.0); MONOCYTES # (AUTO) 0.8 10^3/uL (0.0-1.0); MONOCYTES % (AUTO) 7.4 %; NEUTROPHILS % (AUTO) 68.6 %; PLT - PLATELET COUNT 378 10^3/uL (130-450); RED BLOOD COUNT 3.81 10^6/uL (4.20-5.40); RED CELL DISTRIBUTION WIDTH 13.2 % (12.0-15.0); WHITE BLOOD COUNT 10.1 x10^3/uL (4.8-10.8)
[2022-01-01 19:15] LABS: CREATININE,URINE 42.6 mg/dL; PROTEIN/CREATININE RATIO,URINE 0.1 (<=0.2)
[2022-01-01 19:16] LABS: ALBUMIN 3.2 g/dL (3.2-5.5); ALBUMIN/GLOBULIN RATIO 0.9 (1.0-2.2); BILIRUBIN,TOTAL 0.4 mg/dL (0.2-1.0); CALCIUM 8.8 mg/dL (8.5-10.3); CREATININE 0.5 mg/dL (0.4-1.0); POTASSIUM 3.8 mmol/L (3.5-5.0); TOTAL PROTEIN 6.9 g/dL (6.7-8.2)
[2022-01-01] MEDS ORDERED: NIFEdipine ER 30 MG TABLET PO SCH (20:00)
--- NOTE | 2022-01-01 20:13 | PROCEDURE REPORT ---
- HPI Diagnosis/Indication for NST: Pre- Hypertension Current EDU 02/22/22 Gestation 32 Weeks and 4 Days 1 Para 0 Vital Signs Temperature 98.8 F 01/01/22 18:34 Heart Rate 82 01/01/22 18:34 Respiratory Rate 18 01/01/22 18:34 Blood Pressure 152/89 H 01/01/22 18:34 Temperature 98.8 F 01/01/22 18:34 Heart Rate 90 01/01/22 19:30 Respiratory Rate 18 01/01/22 18:34 Blood Pressure 151/92 H 01/01/22 19:30 O2 Saturation - NST Procedure NST Procedure Start Date 01/01/22 Start Time 18:31 Stop Time 18:53 Vibroacoustic Stimulation Used No Patient States Movement Yes EFM: 140s, moderate variability, positive 15x15 accelerations, no decelerations [place]: no contractions NST reactive - Results and Plan Findings/Impression: 31yo at 32.4w presenting with concerns of elevated BP 140/80s at home. Reports mild headache earlier but no other symptoms. She has chronic hypertension and was seen yesterday for her NST. Nifedipine was increased and she was scheduled to take nifedipine 30mg CR BID. BP max 151/92 although she has not taken evening dose and due now. We will increase her nifedipine to 60mg q12. LFTs stable from yesterday, mildly elevated with recent COVID-19 infection past few weeks. She is scheduled for NST and growth US 01/04. Will plan to refer her to [facility] for consultation as well. Strict return precautions given to present here or nearest higher level care facility- [facility] as she is still . She will continue to monitor her symptoms and BP. NST reactive and exam benign.
[2022-01-01 20:38] VITALS: BP 144/101
--- NOTE | 2022-01-18 07:32 | Labor Flowsheet ---
Labor Flowsheet Datetime Report Generated by CPN: 01/18/2022 07:32 Datetime: 01/01/2022 20:15 VITAL SIGNS NBP Sys/Shahnaz/Mean (mmHg): 144 : 101 : 109 Pulse: 89 COMMUNICATION LaborFlag: OB Triage Datetime: 01/01/2022 18:55 Stage of : OB Triage Datetime: 11/21/2021 23:59 SpO2 (%): 100
== END 2022-01-01 20:29 | disposition home or self-care (01) ==
LOC: WFO 18:24 → FBP 18:27 → WFO 20:29
PROVIDERS: ATTEND Obstetrics & Gynecology
DX: O10.913 Unspecified pre-existing hypertension complicating pregnancy, third trimester (principal); R51.9 Headache, unspecified; R79.89 Other specified abnormal findings of blood chemistry; Z3A.32 32 weeks gestation of pregnancy; Z79.899 Other long term (current) drug therapy; Z86.16 Personal history of COVID-19
CPT/HCPCS: 36415; 59025; 80053; 82570; 84156; 85025; 99215; A9270

== ENCOUNTER 2022-01-26 11:01 | Outpatient (CLI) | payer OTHER ==
[2022-01-26 11:19] LABS: HCT - HEMATOCRIT 38.3 % (37.0-47.0); HGB - HEMOGLOBIN 12.9 g/dL (12.0-16.0); MEAN CORPUSCULAR HEMOGLOBIN 31.4 pg (27.0-31.0); MEAN CORPUSCULAR HGB CONC 33.7 g/dL (32.0-36.0); MEAN CORPUSCULAR VOLUME 93.2 fL (81.0-99.0); MEAN PLATELET VOLUME 9.7 fL (7.9-10.8); RED BLOOD COUNT 4.11 10^6/uL (4.20-5.40); RED CELL DISTRIBUTION WIDTH 13.2 % (12.0-15.0); WHITE BLOOD COUNT 15.8 x10^3/uL (4.8-10.8)
[2022-01-26 11:30] LABS: CREATININE,URINE 226.5 mg/dL; PROTEIN/CREATININE RATIO,URINE 0.1 (<=0.2)
[2022-01-26 11:33] LABS: ALBUMIN 3.2 g/dL (3.2-5.5); ALBUMIN/GLOBULIN RATIO 0.7 (1.0-2.2); BILIRUBIN,TOTAL 0.4 mg/dL (0.2-1.0); CALCIUM 9.2 mg/dL (8.5-10.3); CREATININE 0.6 mg/dL (0.4-1.0); TOTAL PROTEIN 7.9 g/dL (6.7-8.2)
== END 2022-01-26 11:02 | disposition home or self-care (01) ==
LOC: DI 11:01
PROVIDERS: ATTEND Obstetrics & Gynecology
DX: O14.93 Unspecified pre-eclampsia, third trimester (principal)
CPT/HCPCS: 36415; 80053; 82570; 84156; 85027

== ENCOUNTER 2022-01-26 11:25 | Outpatient (CLI) | payer OTHER ==
[2022-01-26 14:37] VITALS: BP 137/98
--- NOTE | 2022-01-26 14:46 | Ultrasound Report ---
PROCEDURE: OB Biophysical Profile INDICATIONS: Gestational Hypertension OUTSIDE/PRIOR DATING DATA: Last menstrual period (LMP): 05/10/2021. LMP-based estimated date of delivery (KURT): 02/14/2022. First dating scan (date and location): 06/30/2021. Estimated date of delivery (KURT) from first dating scan: 02/22/2022. The below data below was generated using the study generated KURT of 02/22/2022 TECHNIQUE: Real-time scanning was performed of the fetus, with image documentation. Biophysical prof ile was also obtained. Endovaginal scanning: Not indicated COMPARISON: 06/30/2021, 09/27/2021, 10/07/2021, 12/31/2021. FINDINGS: General: A single living intrauterine gestation is present. Presentation: Vertex Placenta: Placental position is anterior, without previa. Amniotic fluid index: 16 cm, normal for gestational age. heart rate: 145 beats per minute. Maternal cervical canal: 3.87 cm long and is closed; normal length is 2.5 cm or more. Estimated gestational age from initial scan: 36 weeks, 1 day. Biophysical profile: Tone: 2 points. Movement: 2 points. Respiration: 2 points. Largest pocket of fluid: 2 points. Umbilical artery Doppler: 2.54, 2.17, 2.73. chest, stomach, bilateral kidneys and urinary bladder are visualized and are within normal limi ts. IMPRESSION: 1. Single live intrauterine gestation with fetus in vertex presentation. heart rate is 145 bpm. Normal amount of amniotic fluid. 2. The biophysical profile score is 8 out of 8. 3. Normal umbilical artery S/D ratio. Reviewed by: Clarence Pacheco MD on 01/26/2022 2:45 PM PDT Approved by: Clarence Pacheco MD on 01/26/2022 2:45 PM PDT Station ID: [id number]
--- NOTE | 2022-01-27 14:03 | PROCEDURE REPORT ---
- HPI Diagnosis/Indication for NST: Gestational Hypertension Current EDU 02/22/22 Gestation 36 Weeks and 1 Days 1 Para 0 Vital Signs Temperature 98.5 F 01/26/22 11:46 Heart Rate 101 H 01/26/22 11:46 Respiratory Rate 16 01/26/22 11:46 Blood Pressure 143/101 H 01/26/22 11:46 Temperature 98.5 F 01/26/22 11:46 Heart Rate 90 01/26/22 12:09 Respiratory Rate 16 01/26/22 11:46 Blood Pressure 137/98 H 01/26/22 12:09 O2 Saturation - NST Procedure NST Procedure Start Date 01/26/22 Start Time 11:41 Stop Time 12:25 Vibroacoustic Stimulation Used No Patient States Movement Yes EFM 145 mod jackelin 15x15 accels no decels TOCO: quiet - Results and Plan Plan: 31yo at 36+1 w presenting for scheduled NST for chronic hypertension treated with nifedipine 60mg XL BID - Cat I tracing -BPP 8/8 DONNA 16. Nl S/D ratio - Initial BPs 143/101, repeat 137/98. -Preeclampsia labs obtained. LFTs noted to have normalized from prior exams -Currently taking nifedipine XL 60 mg po bid -Anticipate IOL at 37 weeks; cont twice weekyl NST/DONNA in interim DOS: 01/26/22 NST read 01/26/22 DX: CHTN IUP at 36+1 wga
== END 2022-01-26 14:45 | disposition home or self-care (01) ==
LOC: WFO 11:25 → FBP 11:26 → WFO 14:45
PROVIDERS: ATTEND Obstetrics & Gynecology
DX: O13.3 Gestational [pregnancy-induced] hypertension without significant proteinuria, third trimester (principal); Z3A.36 36 weeks gestation of pregnancy; Z79.899 Other long term (current) drug therapy
CPT/HCPCS: 36415; 59025; 80053; 82570; 84156; 85027; 99214

== ENCOUNTER 2022-01-29 11:45 | Outpatient (CLI) | payer OTHER ==
[2022-01-29 12:01] VITALS: BP 142/99
[2022-01-29] MEDS ORDERED: BETAMETHASONE 30 MG/5 ML VIAL IM ONE (12:09)
[2022-01-29 12:35] LABS: INR 1.1 (0.8-1.2); PT - PROTHROMBIN TIME 12.1 secs (9.9-12.6)
[2022-01-29 12:42] LABS: PARTIAL THROMBOPLASTIN TIME 30.7 secs (24.9-33.3)
--- NOTE | 2022-01-30 15:46 | PROCEDURE REPORT ---
- HPI Diagnosis/Indication for NST: Gestational Hypertension Current EDU 02/22/22 Gestation 36 Weeks and 4 Days 1 Para 0 Vital Signs Temperature 98.4 F 01/29/22 12:00 Heart Rate 100 01/29/22 12:00 Respiratory Rate 18 01/29/22 12:00 Blood Pressure 142/99 H 01/29/22 12:00 Temperature 98.4 F 01/29/22 12:00 Heart Rate 100 01/29/22 12:00 Respiratory Rate 18 01/29/22 12:00 Blood Pressure 142/99 H 01/29/22 12:00 O2 Saturation - NST Procedure NST Procedure Start Date 01/29/22 Start Time 12:00 Stop Time 12:28 Vibroacoustic Stimulation Used No Patient States Movement Yes EFM 145 mod jackelin 15x15 accels no decels TOCO: quiet - Results and Plan Plan: 31yo at 36+4 w presenting for scheduled NST for chronic hypertension treated with nifedipine 60mg XL BID Patient called the evening before NST and reported that her BPs were trending up but had not met criteria for severe range pressures and did not have PIH symptoms. She had labs completed on 01/26/22. Her notes had indicated that she was taking nifed XL 60 mg po bid. In fact, she was taking 60 mg Qam and 30 mg QPM. She was instructed to increase to BID dosing at 60 mg. She is scheduled for IOL on 02/01/22 but given that she has been having an upward trend in BPs, A rescue dose of BMZ was given. She has had 2 doses in November when she had been transferred to [place] earlier in the . She also noted that when she had her IV removed, it took more than 30 minutes for her bleeding to stop. She is concerned that she may have a bleeding disorder. Otherwise, she is doing well. - Cat I tracing -BP 144/99; mild range -BMZ 12 mg IM given x1 -PT/PTT/INR ordered--> wnl -Anticipate IOL at 37 weeks; cont twice weekly NST/DONNA in interim DOS: 01/29/22 NST read 01/29/22 DX: CHTN IUP at 36+4 wga
== END 2022-01-29 13:15 | disposition home or self-care (01) ==
LOC: WFO 11:45 → FBP 11:49 → WFO 13:15
PROVIDERS: ATTEND Obstetrics & Gynecology
DX: O13.3 Gestational [pregnancy-induced] hypertension without significant proteinuria, third trimester (principal); Z3A.36 36 weeks gestation of pregnancy
CPT/HCPCS: 36415; 59025; 85610; 85730; 96372

== ENCOUNTER 2022-02-01 07:31 | Inpatient (IN) | payer OTHER ==
[2022-02-01] MEDS ORDERED: NIFEdipine 10 MG CAPSULE PO PRN (09:16)
[2022-02-01] MEDS ORDERED: LIDOCAINE-MPF 1% 30 ML VIAL ID PRN (09:16)
[2022-02-01] MEDS ORDERED: METHYLERGONOVINE 0.2 MG/ML VIAL IM PRN (09:16)
[2022-02-01] MEDS ORDERED: miSOPROStoL 200 MCG TABLET BC PRN (09:16)
[2022-02-01] MEDS ORDERED: hydrALAZINE INJ 20 MG/ML VIAL IVP PRN ×2 (09:16)
[2022-02-01] MEDS ORDERED: fentaNYL 100 MCG/2 ML VIAL IVP PRN (09:16)
[2022-02-01] MEDS ORDERED: CARBOPROST TROMETHAMINE 250 MCG/ML AMP IM PRN (09:16)
[2022-02-01] MEDS ORDERED: SODIUM CHLORIDE FLUSH 0.9% 10 ML SYRINGE IVP PRN (09:16)
[2022-02-01] MEDS ORDERED: OXYTOCIN/SODIUM CHLORIDE 500 ML IV PRN (09:16)
[2022-02-01] MEDS ORDERED: miSOPROStoL 200 MCG TABLET PR PRN (09:16)
[2022-02-01] MEDS ORDERED: TRANEXAMIC ACID IN NACL 1,000 MG/100 ML BAG IV PRN (09:16)
[2022-02-01] MEDS ORDERED: LABETALOL 20 MG/4 ML SYRINGE IVP PRN ×3 (09:16)
[2022-02-01] MEDS ORDERED: OXYTOCIN 10 UNIT/ML VIAL IM PRN (09:16)
[2022-02-01] MEDS ORDERED: AMPICILLIN 2 GM in SODIUM CHLORIDE 0.9% MINIBAG 100 ML IV ONE (09:26)
[2022-02-01] MEDS ORDERED: hydrOXYzine PAMOATE 25 MG CAPSULE PO PRN (09:31)
--- NOTE | 2022-02-01 09:51 | CONSULTATION NOTE ---
Consultation Report: Called to OB for assist with IV placement. Pt with history of difficult IV starts. 20ga IV placed at L forearm, attempt x1, with US. Easily aspirates and flushes with cap. Secured. Pt tolerated the procedure without complication or complaint.
[2022-02-01] MEDS ORDERED: SODIUM CHLORIDE FLUSH 0.9% 10 ML SYRINGE IVP SCH (10:00)
[2022-02-01] MEDS ORDERED: OXYTOCIN/SODIUM CHLORIDE 500 ML IV SCH (10:00)
--- NOTE | 2022-02-01 10:00 | HISTORY & PHYSICAL EXAMINATION ---
Admit History - Visit Reason Visit Reason: Other (Scheduled IOL for gestational hypertension) - : 1 Parity: 0 Care: positive: [facility] Risk/History: positive: Labor induction Complications This : positive: Treated for GBS/UTI (GBS POS), Pre-eclampsia, Chronic HTN (Chronic hypertension diagnosed during . Developed superimposed preeclampsia third trimester.) Smoking Status: Never smoker - Mother's Labs Mother's Blood Type: positive: A Mother's RH: positive: Positive GBS: positive: Group B Strep Positive Rubella Status: positive: Immune - Other Maternal History Other Maternal History: also complicated by COVID-19 in third trimester. Elevated LFTs attributed to this as they did resolve prior to a planned 34w IOL. Med: BMI 42, Lupus/Antiphospholipid syndrome?, Hashimotos thyroiditis, GERD, anxiety Surg: lymph node dissection 2017, wisdom teeth, lasix 2010 Social: denies dav Fam: HTN, thyroid, cardiac Meds/Allgy - Home Medications Home Medications: Ambulatory Orders Medication Instructions Recorded Confirmed Aspirin [Gabbs Aspirin] 81 mg PO DAILY 10/08/21 10/08/21 Cetirizine [ZyrTEC] 40 mg PO DAILY 10/08/21 10/08/21 Doxylamine Succinate [Unisom] 25 mg PO HS 10/08/21 10/08/21 Famotidine [Pepcid] 40 mg PO DAILY 10/08/21 10/08/21 NIFEdipine [Procardia Xl] 30 mg PO DAILY 10/08/21 10/08/21 - Allergies Allergies/Adverse Reactions: Allergies Allergy/AdvReac Type Severity Reaction Status Date / Time Iodinated Contrast Media Allergy Hives Verified 02/01/22 10:11 sulfamethoxazole Allergy Respiratory Verified 02/01/22 10:11 [From Bactrim] trimethoprim [From Bactrim] Allergy Respiratory Verified 02/01/22 10:11 Review of Systems - All Other Systems All Other Systems: reports: Reviewed and negative Physical - Abdominal Exam Vital Signs: Temp Pulse Resp BP Pulse Ox 98.6 F 02/01/22 08:14 BP 130/91 Contraction Frequency (min/apart): none - Monitoring Heart Rate Baseline: 140s - Presentation Presentation: positive: Vertex (EFW 3200g Placenta anterior) - Vaginal Exam Membranes: positive: Membranes intact Dilation (in cm): 1 Effacement (%): 50 Station: positive: -3 Cervical Position: positive: Midposition - Speculum Exam Speculum Exam Performed: positive: No Plan for Labor - Plan For Labor I expect patient to be DC'd or transferred within 96 hours.: Yes Plan for Labor: 31yo at 37w confirmed by 6w US presenting for scheduled IOL for chronic hypertension requiring increasing nifedipine. Previous concern for preeclampsia due to increased LFTs, but these have now been attributed to her history of COVID-19. She was admitted at [facility] for her elevated BP and concern for preeclampsia. She was discharged and care was continued at . Currently denies PIH symptoms. - Admit for IOL. Start misoprostol 50mcg q4 x6. Pitocin when cervix favorable. - Continue nifedipine 60mg CR q12 - GBS positive, will start ampicillin in active labor ~6cm or if ruptured - monitoring reassuring, Cat 1. Continue to monitor
[2022-02-01] MEDS: miSOPROStoL 100 MCG TABLET BC SCH ×4 (10:03→21:42)
[2022-02-01 10:06] LABS: BASOPHILS # (AUTO) 0.1 10^3/uL (0.0-0.1); BASOPHILS % (AUTO) 0.4 %; EOSINOPHILS # (AUTO) 0.1 10^3/uL (0.0-0.7); EOSINOPHILS % (AUTO) 0.6 %; HCT - HEMATOCRIT 37.5 % (37.0-47.0); HGB - HEMOGLOBIN 13.1 g/dL (12.0-16.0); LYMPHOCYTES # (AUTO) 2.7 10^3/uL (1.5-3.5); LYMPHOCYTES % (AUTO) 16.6 %; MEAN CORPUSCULAR HEMOGLOBIN 31.9 pg (27.0-31.0); MEAN CORPUSCULAR HGB CONC 34.9 g/dL (32.0-36.0); MEAN CORPUSCULAR VOLUME 91.2 fL (81.0-99.0); MONOCYTES # (AUTO) 0.9 10^3/uL (0.0-1.0); MONOCYTES % (AUTO) 5.7 %; NEUTROPHILS # (AUTO) 12.2 10^3/uL (1.5-6.6); NEUTROPHILS % (AUTO) 75.3 %; PLT - PLATELET COUNT 391 10^3/uL (130-450); RED BLOOD COUNT 4.11 10^6/uL (4.20-5.40); RED CELL DISTRIBUTION WIDTH 13.2 % (12.0-15.0); WHITE BLOOD COUNT 16.2 x10^3/uL (4.8-10.8)
[2022-02-01 10:16] LABS: ALBUMIN 3.2 g/dL (3.2-5.5); ALBUMIN/GLOBULIN RATIO 0.8 (1.0-2.2); ALKALINE PHOSPHATASE 127 IU/L (42-121); ALT ALANINE AMINOTRANSFERASE 11 IU/L (10-60); AST ASPARTATE AMINOTRANSFERASE 16 IU/L (10-42); BILIRUBIN,TOTAL < 0.2 mg/dL (0.2-1.0); BUN - BLOOD UREA NITROGEN 12 mg/dL (6-20); CALCIUM 9.5 mg/dL (8.5-10.3); CARBON DIOXIDE - CO2 19 mmol/L (21-32); CHLORIDE 104 mmol/L (101-111); CREATININE 0.6 mg/dL (0.4-1.0); GFR - MDRD 116 (>89); GLUCOSE 120 mg/dL (70-100); POTASSIUM 3.5 mmol/L (3.5-5.0); SODIUM 136 mmol/L (135-145); TOTAL PROTEIN 7.4 g/dL (6.7-8.2)
[2022-02-01] MEDS ORDERED: AMPICILLIN 1 GM in SODIUM CHLORIDE 0.9% MINIBAG 100 ML IV SCH (14:00)
[2022-02-01] MEDS: NIFEdipine ER 30 MG TABLET PO SCH ×2 (16:26→21:42)
[2022-02-01] MEDS ORDERED: CETIRIZINE 10 MG TABLET PO SCH (21:00)
[2022-02-01] MEDS: CETIRIZINE 10 MG TABLET PO SCH (21:39)
[2022-02-01] MEDS: FAMOTIDINE 20 MG TABLET PO SCH (21:41)
[2022-02-01] MEDS: CALCIUM CARBONATE CHEW 500 MG TABLET PO SCH (22:35)
[2022-02-02] MEDS: LACTATED RINGERS 1,000 ML IV SCH ×2 (06:15→14:17)
[2022-02-02] MEDS ORDERED: CETIRIZINE 10 MG TABLET PO SCH (09:00)
[2022-02-02] MEDS ORDERED: FAMOTIDINE 20 MG TABLET PO SCH (09:00)
[2022-02-02] MEDS ORDERED: ACETAMINOPHEN 325 MG TABLET PO PRN (09:23)
--- NOTE | 2022-02-02 09:27 | PROVIDER PROGRESS NOTE ---
Labor Progress Note - Uterine Monitoring Uterine Monitoring Mode: positive: External toco Contraction Frequency (min/apart): irregular Contraction Intensity: positive: Mild to moderate Uterine Resting Tone: positive: Soft - Monitoring Monitor Mode: positive: External ultrasound Heart Rate Baseline: 140s Heart Rate Variability: positive: Moderate (6-25 bmp) Accelerations: positive: Present, 15x15 Decelerations: positive: None Strip Review: positive: Category I - Vaginal Exam Dilation (in cm): 3 Effacement (%): 50 Station: -3 - Labor Progress Note Labor Progress Note/Additional Text: 31yo at 37.1w confirmed by 6w US admitted for IOL for chronic hypertension - Received misoprostol 50mcg x4. Pitocin started 0600 today. - Continue nifedipine 60mg CR q12 - GBS positive, will start ampicillin in active labor ~6cm or if ruptured - monitoring reassuring, Cat 1. Continue to monitor
[2022-02-02] MEDS: NIFEdipine ER 30 MG TABLET PO SCH (14:33)
[2022-02-02] MEDS: ONDANSETRON 4 MG/2 ML VIAL IVP PRN ×2 (15:04→15:40)
[2022-02-02] MEDS ORDERED: ONDANSETRON 4 MG/2 ML VIAL ONE ×2 (15:22→19:18)
--- NOTE | 2022-02-02 15:27 | PROVIDER PROGRESS NOTE ---
Labor Progress Note - Uterine Monitoring Uterine Monitoring Mode: positive: External toco Contraction Frequency (min/apart): 2-4 Contraction Intensity: positive: Moderate Uterine Resting Tone: positive: Soft - Monitoring Monitor Mode: positive: External ultrasound Heart Rate Baseline: 150 Heart Rate Variability: positive: Moderate (6-25 bmp) Accelerations: positive: Present, 15x15 Decelerations: positive: None Strip Review: positive: Category I - Vaginal Exam Dilation (in cm): 5 Effacement (%): 100 Station: -2 Cervical Position: Midposition - Labor Progress Note Labor Progress Note/Additional Text: 31yo at 37.1w confirmed by 6w US admitted for IOL for chronic hypertension. Starting active labor phase - Received misoprostol 50mcg x4. Pitocin started 0600 today, at 16mu/m now. - Nausea, vomiting after SROM- Zofran 8mg IV given with some relief. - Continue nifedipine 60mg CR q12 - GBS positive. SROM 1440, clear. Start ampicillin now. - monitoring reassuring, Cat 1. Continue to monitor
[2022-02-02] MEDS ORDERED: AMPICILLIN 2 GM VIAL IV ONE (15:38)
[2022-02-02] MEDS ORDERED: ROPIVACAINE 0.2% 200 MG/100 ML BAG EP ONE (16:11)
[2022-02-02] MEDS ORDERED: diphenhydrAMINE INJ 50 MG/ML VIAL IVP PRN (16:51)
[2022-02-02] MEDS ORDERED: NALOXONE 0.4 MG/ML VIAL IVP PRN ×3 (16:51→21:25)
[2022-02-02] MEDS ORDERED: ROPIVACAINE 0.2% 200 MG/100 ML BAG EP PRN (16:51)
[2022-02-02] MEDS ORDERED: ePHEDrine 50 MG/ML VIAL IVP PRN ×2 (16:51→21:10)
[2022-02-02] MEDS ORDERED: ONDANSETRON 4 MG/2 ML VIAL IVP PRN ×2 (16:51→21:10)
[2022-02-02] MEDS ORDERED: METOCLOPRAMIDE 10 MG/2 ML VIAL IVP PRN ×2 (16:51→21:10)
[2022-02-02] MEDS ORDERED: NALBUPHINE 10 MG/ML AMP IVP PRN (16:51)
--- NOTE | 2022-02-02 16:51 | ANESTHESIA ---
Pre-Anesthesia VS, & Labs - Diagnosis labor induction - Procedure labor epidural Vital Signs: Temp Pulse Resp BP Pulse Ox 36.7 C 107 H 16 131/89 H 02/02/22 06:19 02/01/22 20:07 02/02/22 06:19 02/01/22 20:07 Height: 5 ft 8 in Weight (kg): 128.367 kg Body Mass Index: 43.0 BMI Classification: Morbidly Obese - NPO >8 hours - Is Patient ?: Yes - Lab Results Current Lab Results: Laboratory Tests 02/01/22 09:30: Sodium 136, Potassium 3.5, Chloride 104, Carbon Dioxide 19 L, Anion Gap 13.0, BUN 12, Creatinine 0.6, Estimated GFR (MDRD) 116, Glucose 120 H, Calcium 9.5, Total Bilirubin < 0.2 L, AST 16, ALT 11, Alkaline Phosphatase 127 H , Total Protein 7.4, Albumin 3.2, Globulin 4.2, Albumin/Globulin Ratio 0.8 L 02/01/22 09:30: WBC 16.2 H, RBC 4.11 L, Hgb 13.1, Hct 37.5, MCV 91.2, MCH 31.9 H , MCHC 34.9, RDW 13.2, Plt Count 391, MPV 10.0, Neut # (Auto) 12.2 H, Lymph # (Auto) 2.7, [place] # (Auto) 0.9, Eos # (Auto) 0.1, Baso # (Auto) 0.1, Absolute Nucleated RBC 0.00, Nucleated RBC % 0.0 02/01/22 09:30: Blood Type A POSITIVE, Antibody Screen NEGATIVE Fish Bones: 02/01/22 09:30 02/01/22 09:30 Home Medications and Allergies Home Medications: Ambulatory Orders Docusate Sodium 100Mg Capsule [Colace 100Mg Capsule] 100 mg PO BID 02/01/22 Active Medications Acetaminophen (Acetaminophen 325 Mg Tablet) 975 mg PO Q6HR PRN PRN Reason: Pain or Fever > 38C (100.4F) Last Admin: 02/02/22 09:38 Dose: 975 mg Calcium Carbonate/Glycine (Calcium Carbonate Chew 500 Mg Tablet) 500 mg PO BID TAMMY Last Admin: 02/01/22 22:35 Dose: 500 mg Carboprost Tromethamine (Carboprost Tromethamine 250 Mcg/Ml Amp) 250 mcg IM .ONCE PRN PRN Reason: Hemorrhage Cetirizine HCl (Cetirizine 10 Mg Tablet) 40 mg PO QPM TAMMY Last Admin: 02/01/22 21:39 Dose: 40 mg Famotidine (Famotidine 20 Mg Tablet) 40 mg PO QPM TAMMY Last Admin: 02/01/22 21:41 Dose: 40 mg Fentanyl (Fentanyl 100 Mcg/2 Ml Vial) 50 mcg IVP Q1H PRN PRN Reason: Severe Pain (score 7-10) Hydralazine HCl (Hydralazine Inj 20 Mg/Ml Vial) 5 - 10 mg IVP Q20M PRN; Protocol PRN Reason: SBP> or= 160 OR DBP> or= 110 Hydralazine HCl (Hydralazine Inj 20 Mg/Ml Vial) 10 mg IVP .ONCE PRN; Protocol PRN Reason: SBP> or= 160 OR DBP> or= 110 Hydroxyzine Pamoate (Hydroxyzine Pamoate 25 Mg Capsule) 25 mg PO QPM PRN PRN Reason: Insomnia Last Admin: 02/01/22 21:41 Dose: 25 mg Oxytocin/Sodium Chloride (Pitocin/Sodium Chloride) 500 mls @ 999 mls/hr IV PRN PRN; Protocol PRN Reason: POST- HEMORR PREVENTION Tranexamic Acid (Tranexamic 1,000 Mg/100ml-Nacl) 1,000 mg in 100 mls @ 600 mls/hr IV Q30M PRN PRN Reason: EBL >1200mL and within 3hr Lactated Ringer's (Lr) 1,000 mls @ 125 mls/hr IV .Q8H [facility] Last Admin: 02/02/22 14:17 Dose: 125 mls/hr Oxytocin/Sodium Chloride (Pitocin/Sodium Chloride) 500 mls @ 2 mls/hr IV TITR TAMMY; Protocol Last Admin: 02/02/22 06:15 Dose: 2 milliunit/min, 2 mls/hr Ampicillin Sodium 1 gm/ Sodium (Chloride) 100 mls @ 200 mls/hr IV Q4H TAMMY Labetalol HCl (Labetalol 20 Mg/4 Ml Syringe) 20 - 80 mg IVP Q10M PRN; Protocol PRN Reason: SBP> or= 160 OR DBP> or= 110 Labetalol HCl (Labetalol 20 Mg/4 Ml Syringe) 20 mg IVP .ONCE PRN; Protocol PRN Reason: SBP> or= 160 OR DBP> or= 110 Labetalol HCl (Labetalol 20 Mg/4 Ml Syringe) 20 - 40 mg IVP Q10M PRN; Protocol PRN Reason: SBP> or= 160 OR DBP> or= 110 Methylergonovine Maleate (Methylergonovine 0.2 Mg/Ml Vial) 0.2 mg IM .ONCE PRN PRN Reason: Hemorrhage Misoprostol (Misoprostol 100 Mcg Tablet) 50 mcg BC Q4H [facility] Last Admin: 02/01/22 21:42 Dose: 50 mcg Misoprostol (Misoprostol 200 Mcg Tablet) 600 mcg BC .ONCE PRN PRN Reason: Hemorrhage Misoprostol (Misoprostol 200 Mcg Tablet) 800 mcg AL .ONCE PRN PRN Reason: Hemorrhage Nifedipine (Nifedipine 10 Mg Capsule) 10 - 20 mg PO Q20M PRN; Protocol PRN Reason: SBP> or= 160 OR DBP> or= 110 Nifedipine (Nifedipine Er 30 Mg Tablet) 60 mg PO Q12H [facility] Last Admin: 02/02/22 14:33 Dose: 60 mg Ondansetron HCl (Ondansetron 4 Mg/2 Ml Vial) 4 mg IVP Q6HR PRN PRN Reason: Nausea / Vomiting Last Admin: 02/02/22 15:40 Dose: 4 mg Oxytocin (Oxytocin 10 Unit/Ml Vial) 10 unit IM .ONCE PRN PRN Reason: Step One if no IV access. Sodium Chloride (Sodium Chloride Flush 0.9% 10 Ml Syringe) 10 ml IVP PRN PRN PRN Reason: NEEDED PER PROVIDER ORDERS Sodium Chloride (Sodium Chloride Flush 0.9% 10 Ml Syringe) 10 ml IVP Q8H [facility] Last Admin: 02/01/22 18:02 Dose: 10 ml Aspirin [[place] Aspirin] 81 mg PO DAILY 10/08/21 Cetirizine [ZyrTEC] 40 mg PO DAILY 10/08/21 Doxylamine Succinate [Unisom] 25 mg PO HS 10/08/21 Famotidine [Pepcid] 40 mg PO HS 10/08/21 NIFEdipine [Procardia Xl] 60 mg PO BID 10/08/21 Docusate Sodium 100Mg Capsule [Colace 100Mg Capsule] 100 mg PO BID 02/01/22 Allergies/Adverse Reactions: Allergies Allergy/AdvReac Type Severity Reaction Status Date / Time Iodinated Contrast Media Allergy Hives Verified 02/01/22 10:11 sulfamethoxazole Allergy Respiratory Verified 02/01/22 10:11 [From Bactrim] trimethoprim [From Bactrim] Allergy Respiratory Verified 02/01/22 10:11 Anes History & Medical History - Anesthetic History Anesthesia Complications: reports: No previous complications - Medical History Cardiovascular: reports: Hypertension Pulmonary: reports: None Neuro: reports: None Endocrine/Autoimmune: reports: None Smoking Status: Never smoker History of Cancer?: No - Obstetrical History : 1 Parity: 0 Events: reports: Labor induction Complications: reports: Treated for GBS/UTI (GBS POS), Pre-eclampsia, Chronic HTN (Chronic hypertension diagnosed during . Developed superimposed preeclampsia third trimester.) Exam General: Alert, Oriented x3, Cooperative, Moderate distress Dental: WNL Mouth Opening: Greater than 4 Fingerbreadths Neck Mobility: Normal Mallampati classification: II Thyromental Distance: greater than 6 cm Respiratory: Lungs clear Cardiovascular: Regular rate Plan Anesthesia Type: Epidural Consent for Procedure(s) Verified and Reviewed: Yes Code Status: Attempt Resuscitation ASA classification: 2-Mild systemic disease Is this case an emergency?: No
[2022-02-02] MEDS ORDERED: CITRIC ACID/SODIUM CITRATE 15 ML UDC PO ONE ×2 (18:24→18:50)
--- NOTE | 2022-02-02 18:26 | PROVIDER PROGRESS NOTE ---
Labor Progress Note - Uterine Monitoring Uterine Monitoring Mode: positive: IUPC (Placed for improved monitoring) Contraction Frequency (min/apart): 2 Contraction Intensity: positive: Moderate Uterine Resting Tone: positive: Soft - Monitoring Monitor Mode: positive: External ultrasound Heart Rate Baseline: 170 Heart Rate Variability: positive: Minimal (0-5 bpm) Accelerations: positive: Present, 15x15 Decelerations: positive: Late Strip Review: positive: Category II - Vaginal Exam Dilation (in cm): 5 Effacement (%): 100 Station: -2 Cervical Position: Midposition - Labor Progress Note Labor Progress Note/Additional Text: 31yo at 37.1w confirmed by 6w US admitted for IOL for chronic hypertension, Category 2 tracing and section now recommended. - Received misoprostol 50mcg x4. Pitocin up to 16mu/m, decreased to 10 prior to epidural as patient was uncomfortable, and then discontinued after epidural placed due to recurrent late decelerations. FHR monitored after discontinuation of Pitocin. Position changed, 1L LR bolus given. Some improvement noted, however minimal variability observed and tachycardia in 170s noted. She has been SROM ~4h and afebrile. Received 1 dose of ampicillin for GBS positive. Discussed with patient informed consent obtained for primary section. Will proceed to OR for urgent PCD.
[2022-02-02] MEDS ORDERED: AZITHROMYCIN INJ 500 MG in SODIUM CHLORIDE 0.9% 250 ML IV ONE (19:00)
[2022-02-02] MEDS ORDERED: ePHEDrine 50 MG/ML VIAL IVP ONE (19:18)
[2022-02-02] MEDS ORDERED: OXYTOCIN 10 UNIT/ML VIAL ONE ×2 (19:18→20:14)
[2022-02-02] MEDS ORDERED: LIDOCAINE-PF 2% 10 ML AMP SUBQ ONE (19:19)
[2022-02-02] MEDS ORDERED: diphenhydrAMINE INJ 50 MG/ML VIAL ONE (19:43)
[2022-02-02] MEDS ORDERED: fentaNYL 100 MCG/2 ML VIAL ONE (19:47)
[2022-02-02] MEDS ORDERED: LACTATED RINGERS 1,000 ML IV ONE (21:02)
--- NOTE | 2022-02-02 21:03 | DELIVERY NOTE ---
Delivery Note - Labor Labor: positive: Augmented by oxytocin - Delivery Method Delivery Method: positive: Primary - Cervical Ripening Method Cervical Ripening Method: positive: Misoprostil - Presentation Presentation: positive: Vertex - Nuchal Cord Nuchal Cord: positive: Present (Nuchal x1 reduced after delivery) - Anesthetic Anesthetic Type: - Amniotic Fluid Description Amniotic Fluid Description: positive: Clear - Delivery Outcome Delivery Outcome: positive: Livebirth - [place]: positive: Stimulated, Warmer used [place] sex: positive: Female - Cord Cord: positive: 3 vessels - Placenta Placenta: positive: Intact, Spontaneous, Manual removal - Estimated Blood Loss Estimated Blood Loss (in cc): 800 - Post Delivery Events Post Delivery Events: positive: Unplanned - Delivery Comments (Free Text/Narrative) Delivery Comments (Free Text/Narrative): See operative report for primary section.
--- NOTE | 2022-02-02 21:06 | OPERATIVE REPORT ---
Operative Report - General Admit Date: 02/01/22 Planned Procedure: Primary section Pre-Op Diagnosis: 31yo with IUP at 37.1w, NRHFT, Unsuccessful IOL for gestational HTN Procedure Performed: Primary section Post Op Diagnosis: 31yo with IUP at 37.1w, NRHFT, Unsuccessful IOL for gestational HTN - Procedure Note Primary Surgeon: Mona Otto DO Secondary Surgeon: Leslye Cooper CNM Anesthesia Provider: Heidy Ellis CRNA Anesthesia Technique: Epidural Pathology: None Placenta discarded Estimated Blood Loss (mL): 800 Indications: 31yo at 37w confirmed by 6w US admitted 02/01 for IOL for chronic hypertension. She received misoprostol 50mcg x4. Pitocin up to 16mu/m, decreased to 10 prior to epidural as patient was uncomfortable, and then discontinued after epidural placed due to recurrent late decelerations. FHR monitored after discontinuation of Pitocin. Position changed, 1L LR bolus given. Some improvement noted, however minimal variability observed and tachycardia in 170s noted. She has been SROM ~4h and afebrile. Received 1 dose of ampicillin for GBS positive. SVE 5/100/-2. Informed consent obtained for primary section for intolerance to labor. Findings: Normal appearing uterus, oviducts, ovaries. Complications: None. Care taken to repair bilateral uterine extensions. - Other Other Information/Narrative: Under adequate epidural anaesthetic with a Garvin catheter inserted, the patient was prepped and draped in the usual sterile fashion in the supine position with a leftward tilt. A Pfannensteil incision was made. The incision was carried down to the fascia with sharp dissection and cautery. The fascia was incised transversely and dissected off the rectus muscle using blunt and sharp dissection. Electrocautery was used for hemostasis. The peritoneum was opened taking care not to injure the bladder. The vesicouterine peritoneum was dissected off the lower uterine segment. The lower segment was assessed and a low transverse incision was made. The uterine incision was extended bluntly. The fetus was presenting as a vertex. The head was delivered with some difficulty as head was well engaged in the pelvis. Strong effort was used to release suction and head was then delivered. The rest of the body followed easily. Nuchal cord x1 noted and released after body delivery. Cord was clamped immediately as was not vigorous. Cord was clamped twice and cut and the baby transferred to the warmer, awaiting the pediatric staff. Cord gases were then obtained. The placenta was then delivered with assistance. The uterus was explored and was empty of all tissue. The uterus was exteriorized for better visualization. Lower segment was not easily identified. Lower segments were grasped with ring forceps. Midline and left sided uterine extensions were noted. Left apex was sutured with 0-Monocryl and brought to midline. Right apex identified and also closed in a running locked fashion with 0-Monocryl. The midline extension apex was identified and sutured in an unlocked fashion and brought up to hysterrorhaphy. The left extension apex was identified and repaired in a similar fashion. Hemostasis noted. All sutures were tied. A second imbricating layer of 0-Monocryl placed. Tubes and ovaries were examined and appeared normal. Uterus replaced into abdomen. Hemostasis noted at all dissection sites. Fascia closed with 0-Vicryl in a running unlocked fashion. Subcutaneous layer reapproximated with 2-0 chromic. The skin was then reapproximated with 4-0 Monocryl. At the end of the procedure all sponges, instruments, and sharps were counted and correct. Estimated blood loss was 600cc. The patient and baby were taken to the recovery in stable condition.
[2022-02-02] MEDS ORDERED: ATROPINE ABBOJECT 1 MG/10 ML SYRINGE IVP PRN (21:10)
[2022-02-02] MEDS ORDERED: HYDROmorphone 0.5 MG/0.5 ML SYRINGE IVP PRN (21:10)
[2022-02-02] MEDS ORDERED: MORPHINE 2 MG/ML CARPUJECT IVP PRN (21:10)
[2022-02-02] MEDS ORDERED: fentaNYL 100 MCG/2 ML VIAL IVP PRN (21:10)
--- NOTE | 2022-02-02 21:11 | ANESTHESIA POST OP EVALUATION ---
Anesthesia Post Eval - Post Anesthesia Eval Vitals: Last Vital Signs Temp 37 C 02/02/22 21:00 Pulse 95 02/02/22 21:00 Resp 17 02/02/22 21:00 BP 113/65 02/02/22 21:00 Pulse Ox 100 02/02/22 21:00 CV Function Including HR & BP: Stable Pain Control: Satisfactory Nausea & Vomiting: Negative Mental Status: Baseline Respiratory Status: Airway Patent Hydration Status: Satisfactory Anesthesia Complications: None
[2022-02-02] MEDS ORDERED: WITCH HAZEL/GLYCERIN 1 PAD TOP PRN (21:25)
[2022-02-02] MEDS ORDERED: HYDROCORTISONE 1% CREAM 28 GM TUBE TOP PRN (21:25)
[2022-02-02] MEDS ORDERED: OXYTOCIN/SODIUM CHLORIDE 500 ML IV PRN (21:25)
[2022-02-02] MEDS ORDERED: FERRIC GLUCONATE 125 MG in SODIUM CHLORIDE 0.9% 100ML 100 ML IV PRN (21:25)
[2022-02-02] MEDS ORDERED: LACTATED RINGERS 1,000 ML IV SCH ×2 (22:00)
[2022-02-02] MEDS: KETOROLAC 30 MG/ML VIAL IVP SCH (22:55)
[2022-02-02] MEDS: ACETAMINOPHEN 500 MG TABLET PO SCH (23:00)
[2022-02-03] MEDS: FAMOTIDINE 20 MG TABLET PO SCH ×2 (00:34→20:57)
[2022-02-03] MEDS: oxyCODONE 5 MG TABLET PO PRN ×6 (00:39→20:32)
[2022-02-03] MEDS: CETIRIZINE 10 MG TABLET PO SCH ×2 (01:01→20:58)
[2022-02-03] MEDS: NIFEdipine ER 30 MG TABLET PO SCH (02:36)
[2022-02-03] MEDS: KETOROLAC 30 MG/ML VIAL IVP SCH ×2 (05:08→10:50)
[2022-02-03 05:44] LABS: HCT - HEMATOCRIT 26.8 % (37.0-47.0); HGB - HEMOGLOBIN 9.2 g/dL (12.0-16.0); MEAN CORPUSCULAR HEMOGLOBIN 31.5 pg (27.0-31.0); MEAN CORPUSCULAR HGB CONC 34.3 g/dL (32.0-36.0); MEAN CORPUSCULAR VOLUME 91.8 fL (81.0-99.0); MEAN PLATELET VOLUME 9.9 fL (7.9-10.8); RED BLOOD COUNT 2.92 10^6/uL (4.20-5.40); RED CELL DISTRIBUTION WIDTH 13.2 % (12.0-15.0); WHITE BLOOD COUNT 23.6 x10^3/uL (4.8-10.8)
[2022-02-03 05:59] LABS: ALBUMIN 2.3 g/dL (3.2-5.5); ALBUMIN/GLOBULIN RATIO 0.8 (1.0-2.2); ALKALINE PHOSPHATASE 102 IU/L (42-121); ALT ALANINE AMINOTRANSFERASE < 10 IU/L (10-60); AST ASPARTATE AMINOTRANSFERASE 20 IU/L (10-42); BILIRUBIN,TOTAL 0.4 mg/dL (0.2-1.0); BUN - BLOOD UREA NITROGEN 8 mg/dL (6-20); CALCIUM 8.4 mg/dL (8.5-10.3); CARBON DIOXIDE - CO2 23 mmol/L (21-32); CHLORIDE 103 mmol/L (101-111); CREATININE 0.5 mg/dL (0.4-1.0); GFR - MDRD 143 (>89); GLUCOSE 101 mg/dL (70-100); POTASSIUM 4.1 mmol/L (3.5-5.0); SODIUM 133 mmol/L (135-145); TOTAL PROTEIN 5.3 g/dL (6.7-8.2)
[2022-02-03] MEDS: ACETAMINOPHEN 500 MG TABLET PO SCH ×3 (07:13→22:58)
[2022-02-03] MEDS ORDERED: diphenhydrAMINE INJ 50 MG/ML VIAL IVP PRN (08:24)
[2022-02-03] MEDS: DOCUSATE SODIUM 100 MG CAPSULE PO SCH ×2 (08:51→20:56)
[2022-02-03] MEDS ORDERED: iohexoL-300 100 ML VIAL ONE (08:57)
[2022-02-03] MEDS ORDERED: methylPREDNISolone SUCCINATE 125 MG/2 ML VIAL IVP SCH (09:00)
[2022-02-03] MEDS ORDERED: iohexoL-300 100 ML VIAL IVP ONE (10:26)
--- NOTE | 2022-02-03 11:16 | CT Report ---
PROCEDURE: IVP INDICATIONS: CT UROGRAM, ASSESS FOR URETERAL/BLADDER CONTRAST: IV CONTRAST: Optiray 320 ml: 100 PO CONTRAST: *NO PO CONTRAST TECHNIQUE: After the administration of oral and intravenous contrast, 5 mm thick sections acquired from the diap hragms to the symphysis. 5 mm thick coronal and sagittal reformats were acquired. For radiation dos e reduction, the following was used: automated exposure control, adjustment of mA and/or kV accordin g to patient size. COMPARISON: None. FINDINGS: Image quality: Excellent. Lung bases: Mild left basilar atelectasis, otherwise the lung bases are clear. Heart size is normal. Urinary system: Both kidneys are normal in size and enhancement. Contrast-filled renal calyces are normal in morphology. Contrast filled portions of both ureters are normal in caliber. There is no e vidence of extravasation of contrast from the ureters. The bladder contains a small amount of contras t but is decompressed with a Garvin. Bladder wall thickness is normal. Solid organs: Liver and spleen are normal in size and enhancement. Gallbladder has a punctate densi ty, probably a small gallstone. Biliary system is non dilated. Pancreas enhances normally. No adre nal nodules. Peritoneum and bowel: Bowel loops demonstrate normal wall thickness and caliber. No free fluid or a ir. Nodes and vessels: No retroperitoneal or mesenteric adenopathy by size criteria. Aorta and inferior vena cava are normal in size. Abdominal wall: Air in the suprapubic tissues is consistent with recent . Pelvis: No pathologic free pelvic fluid. No inguinal hernias or adenopathy. The bladder is decompr essed with a Garvin. The uterus is enlarged consistent with recent delivery. Bones: No suspicious bony lesions. No vertebral body compression fractures. IMPRESSION: 1. Intact ureters with no evidence of ureteral laceration. 2. The bladder contains contrast with no evidence of injury. 3. Postoperative changes of . Reviewed by: Ronaldo Jackson on 02/03/2022 11:15 AM PDT Approved by: Ronaldo Jackson on 02/03/2022 11:15 AM PDT Station ID: [id number]
--- NOTE | 2022-02-03 11:36 | PROVIDER PROGRESS NOTE ---
Subjective - Prog Note Date Prog Note Date: 02/03/22 - Subjective Pt reports feeling: Improved Subjective: Comfortable, reports some incisional pain. Ice pack in place now. Appropriate lochia. Ambulating to bed. Live in place, will remove today. Tolerating regular diet, nausea has resolved. well. Mood is good. Objective - Vital Signs/Intake & Output Reviewed Vital Signs: Yes Vital Signs: Vital Signs x48h Temp Pulse Resp BP Pulse Ox 02/03/22 08:00 98.2 F 91 112/53 L 97 02/03/22 04:55 98.2 F 86 17 126/79 97 02/03/22 04:00 98.2 F 79 20 123/70 96 Intake & Output: Intake & Output 01/31/22 02/01/22 02/02/22 02/03/22 23:59 23:59 23:59 23:59 Intake Total 200 1100 400 Output Total 310 780 Balance 200 790 -380 - Objective General Appearance: positive: No acute distress Respiratory: positive: No respiratory distress Cardiovascular: positive: Other (Regular rate) Abdomen: positive: Other (Dressing in place, c/d/i, appropriately tender) Skin: positive: Color nml Extremities: positive: Non-tender Neurologic/Psychiatric: positive: Oriented x3 - Lab Results Fish Bones: 02/03/22 05:35 02/03/22 05:35 Other Labs: Lab Results x24hrs 02/03/22 02/03/22 Range/Units 05:35 05:35 WBC 23.6 H (4.8-10.8) x10^3/uL RBC 2.92 L (4.20-5.40) 10^6/uL Hgb 9.2 L (12.0-16.0) g/dL Hct 26.8 L (37.0-47.0) % MCV 91.8 (81.0-99.0) fL MCH 31.5 H (27.0-31.0) pg MCHC 34.3 (32.0-36.0) g/dL RDW 13.2 (12.0-15.0) % Plt Count 309 (130-450) 10^3/uL MPV 9.9 (7.9-10.8) fL Sodium 133 L (135-145) mmol/L Potassium 4.1 (3.5-5.0) mmol/L Chloride 103 (101-111) mmol/L Carbon Dioxide 23 (21-32) mmol/L Anion Gap 7.0 (6-13) BUN 8 (6-20) mg/dL Creatinine 0.5 (0.4-1.0) mg/dL Estimated GFR (MDRD) 143 (>89) Glucose 101 H (70-100) mg/dL Calcium 8.4 L (8.5-10.3) mg/dL Total Bilirubin 0.4 (0.2-1.0) mg/dL AST 20 (10-42) IU/L ALT < 10 L (10-60) IU/L Alkaline Phosphatase 102 (42-121) IU/L Total Protein 5.3 L (6.7-8.2) g/dL Albumin 2.3 L (3.2-5.5) g/dL Globulin 3.0 (2.1-4.2) g/dL Albumin/Globulin Ratio 0.8 L (1.0-2.2) Assessment/Plan - Problem List (1) care following delivery Impression: 31yo s/p PCD for intolerance 02/02 at 37.1w following IOL for chronic hypertension, POD#1 - Continue routine , postoperative care - CT urogram completed to evaluate for urinary tract injury due to uterine extensions at time of PCD. Study normal, no injury noted. Plan to remove Live catheter today. Voiding trial, ambulation. (2) Chronic hypertension in obstetric context Impression: Currently normotensive. Nifedipine held last two doses. Will discontinue now and continue to monitor BP. Labs repeated and benign. (3) Acute blood loss as cause of postoperative anemia Impression: Oral iron ordered. Continue vitamins .
[2022-02-03] MEDS: FERROUS SULFATE 325 MG TABLET PO SCH (18:04)
[2022-02-03] MEDS: IBUPROFEN 600 MG TABLET PO SCH (18:04)
[2022-02-04] MEDS: IBUPROFEN 600 MG TABLET PO SCH ×2 (00:02→05:49)
[2022-02-04] MEDS: oxyCODONE 5 MG TABLET PO PRN ×5 (02:42→20:45)
[2022-02-04] MEDS: ACETAMINOPHEN 500 MG TABLET PO SCH ×2 (07:05→15:30)
--- NOTE | 2022-02-04 12:36 | PROVIDER PROGRESS NOTE ---
Subjective - Prog Note Date Prog Note Date: 02/04/22 - Subjective Subjective: Subjective Patient reports she is doing well. Lochia appropriate. Denies heavy bleeding. Ambulating. Pelvic and abdominal pain well-controlled. Tolerating oral intake. Diet: Regular. Voiding without difficulty. Passing flatus. Denies BM. Patient is bonding with baby in room Breast feeding going well. Denies feeling lightheaded, dizzy or excessively fatigued. Objective General: Alert, oriented, no apparent distress. Cardiovascular: Regular rate. Regular rhythm. Lungs: No increased work of breathing. Abdomen: Uterus firm. Below umbilicus. No guarding or rebound. Incision: Wound VAC in place good. Assessment and Plan day 2. -Routine care -Anticipate discharge tomorrow Gestational hypertension -Blood pressures in normal range -Continue oral nifedipine. -We will decrease at 1 week visit or sooner if patient has symptoms Objective - Vital Signs/Intake & Output Vital Signs: Vital Signs x48h Temp Pulse Resp BP Pulse Ox 02/04/22 12:21 98.1 F 81 22 126/69 97 02/04/22 07:45 98.2 F 85 20 125/75 100 Intake & Output: Intake & Output 02/01/22 02/02/22 02/03/22 02/04/22 23:59 23:59 23:59 23:59 Intake Total 200 2600 1400 Output Total 310 2380 Balance 200 2290 -980 - Lab Results Fish Bones: 02/03/22 05:35 02/03/22 05:35
[2022-02-04] MEDS: IBUPROFEN 800 MG TABLET PO SCH ×2 (12:39→20:45)
[2022-02-04] MEDS: DOCUSATE SODIUM 100 MG CAPSULE PO SCH ×2 (12:40→20:45)
[2022-02-04] MEDS: FERROUS SULFATE 325 MG TABLET PO SCH ×2 (12:40→20:45)
[2022-02-04] MEDS: FAMOTIDINE 20 MG TABLET PO SCH (20:45)
[2022-02-04] MEDS: CETIRIZINE 10 MG TABLET PO SCH (20:45)
[2022-02-04] MEDS: CALCIUM CARBONATE CHEW 500 MG TABLET PO SCH ×4 (21:05→21:12)
[2022-02-05] MEDS: ACETAMINOPHEN 500 MG TABLET PO SCH ×2 (01:16→08:53)
[2022-02-05] MEDS: IBUPROFEN 800 MG TABLET PO SCH ×2 (04:07→10:48)
[2022-02-05] MEDS: oxyCODONE 5 MG TABLET PO PRN ×2 (04:07→10:47)
[2022-02-05] MEDS: FERROUS SULFATE 325 MG TABLET PO SCH (08:53)
[2022-02-05] MEDS: DOCUSATE SODIUM 100 MG CAPSULE PO SCH (08:53)
[2022-02-05 09:03] VITALS: BP 134/79
--- NOTE | 2022-02-05 09:08 | Discharge Plan ---
Discharge Plan Problem Reviewed?: Yes Disposition: Home, Self Care Condition: Good Diet: Regular Shower Restrictions: No Driving Restrictions: Yes (For two weeks or while taking opioids. ) Instruction Topics: C Section Dc No Smoking: If you smoke, Please STOP! Call for help. Follow-up with: Luis Valverde MD [Provider Admit Priv/Credential] -
--- NOTE | 2022-02-05 09:11 | DISCHARGE SUMMARY ---
Discharge Summary Admit Date: 02/01/22 Discharge Date: 02/05/22 Discharging Provider: Luis Valverde MD Code Status: Attempt Resuscitation Condition at Discharge: Good Discharge Disposition: 01 Home, Self Care - DIAGNOSES Admission Diagnoses: Gestational Hypertension 37 weeks gestation Discharge Diagnoses with Status of Each Condition: Gestational hypertension 37 weeks gestation - HPI History of Present Illness: Subjective Patient reports she is doing well. Lochia appropriate. Denies heavy bleeding. Ambulating. Pelvic and abdominal pain well-controlled. Tolerating oral intake. Diet: Regular. Voiding without difficulty. Passing flatus. Denies BM. Patient is bonding with baby in room Breast feeding going well. Denies feeling lightheaded, dizzy or excessively fatigued. Objective General: Alert, oriented, no apparent distress. Cardiovascular: Regular rate. Regular rhythm. Lungs: No increased work of breathing. Abdomen: Uterus firm. Below umbilicus. No guarding or rebound. Incision: Clean, dry, and intact. - HOSPITAL COURSE Hospital Course: Patient is a 31-year-old G1 now P1 who presented at 37 weeks for induction of labor. was complicated by hypertension, initially thought to be an aspect of chronic, but then she developed increasing need of nifedipine. She developed elevated LFTs and was sent to [facility] for presumed preeclampsia. These normalized, and may have been due to from a previous COVID infection. Due to her confusing picture and increasing needs for nifedipine, decision made to deliver at 37 weeks gestation. She received misoprostol followed by oxytocin for induction. She had spontaneous rupture of membranes with clear fluid. She then began having heart rate abnormalities nonresponsive to resuscitation decision was made to proceed with primary low-transverse section as patient was still 5 cm dilated. section was unremarkable. course was unremarkable other than decreased need for nifedipine. Blood pressures been normal without medication since delivery. She was discharged on day 3 with her . weight: 3167 g. - ALLERGIES Allergies/Adverse Reactions: Allergies Allergy/AdvReac Type Severity Reaction Status Date / Time Iodinated Contrast Media Allergy Hives Verified 02/01/22 10:11 sulfamethoxazole Allergy Respiratory Verified 02/01/22 10:11 [From Bactrim] trimethoprim [From Bactrim] Allergy Respiratory Verified 02/01/22 10:11 - MEDICATIONS Home Medications: Ambulatory Orders Medication Instructions Recorded Confirmed Aspirin [Alston Aspirin] 81 mg PO DAILY 10/08/21 02/01/22 Cetirizine [ZyrTEC] 40 mg PO DAILY 10/08/21 02/01/22 Doxylamine Succinate [Unisom] 25 mg PO HS 10/08/21 02/01/22 Famotidine [Pepcid] 40 mg PO HS 10/08/21 02/01/22 NIFEdipine [Procardia Xl] 60 mg PO BID 10/08/21 02/01/22 Docusate Sodium 100Mg Capsule 100 mg PO BID 02/01/22 02/01/22 [Colace 100Mg Capsule] Acetaminophen [Acetaminophen Extra 1,000 mg PO Q8H PRN #60 tablet 02/05/22 Strength] Docusate Sodium 100Mg Capsule 100 - 200 mg PO BID PRN #60 cap 02/05/22 [Colace 100Mg Capsule] Ibuprofen [Motrin] 600 mg PO Q6H PRN #30 tab 02/05/22 oxyCODONE [Roxicodone] 2.5 - 5 mg PO Q4H PRN #24 tablet 02/05/22 - LABS Result Diagrams: 02/03/22 05:35 02/03/22 05:35 - FOLLOW UP Follow Up: With Luis Valverde at [facility] in 1 week - TIME SPENT Time Spent in Discharge (Minutes): 20
--- NOTE | 2022-02-05 12:26 | Labor Flowsheet ---
Labor Flowsheet Datetime Report Generated by CPN: 02/05/2022 12:25 Datetime: 02/05/2022 08:54 VITAL SIGNS NBP Sys/Shahnaz/Mean (mmHg): 134 : 79 : 91 Pulse: 86 Datetime: 02/04/2022 20:30 SpO2 (%): 97 Datetime: 02/02/2022 22:00 Respirations: 22 Datetime: 02/02/2022 18:48 Comments: difficulty assessing for decels due to broken strip. Moderate variability. pt. taken of f monitor and taken to OR via bed for PLTCS. Datetime: 02/02/2022 18:47 MONTEVIDEO UNITS (Computed) Contractions in Ten Minutes: 4 IUPC Average Intensity: 65 IUPC Average Resting Tone: 40 [place] Units (mmHg): 100 FHR Baseline Rate : 175 Variability: Moderate 6-25 bpm Accelerations: None Datetime: 02/02/2022 18:46 Contraction Comments: IUPC removed Datetime: 02/02/2022 18:30 UTERINE ACTIVITY Monitor Mode: Internal Frequency (min): 3 Quality: Strong Duration (sec): 50-60 Pattern: Normal: <= 5 Contractions in 10 Minutes Resting Tone (Palpate): Relaxed [place] Units (mmHg): 45 Decelerations: None Datetime: 02/02/2022 18:20 Patient Care Comments: clipped Datetime: 02/02/2022 18:15 Category: Category II Datetime: 02/02/2022 18:08 COMMUNICATION Communication: Provider at Bedside Provider Notified (Name): [place] Datetime: 02/02/2022 17:58 ASSESSMENT A Monitor Mode: External US FHR Baseline Changes: No Baseline Change Datetime: 02/02/2022 17:45 Actions for Decelerations: Provider Notified Datetime: 02/02/2022 17:10 PATIENT CARE IV/Blood Work: IV Bolus Started; IV Bolus Given ml @ 1000 Datetime: 02/02/2022 17:04 Patient Position/Activity: Right Lateral Datetime: 02/02/2022 17:00 Pitocin Checklist: Uterus Palpates Soft between Contractions Medication Comments: pitocin increased per provider Communication Comments: Provider at bedside Datetime: 02/02/2022 16:50 I/O Interventions: Garvin Cath Inserted Datetime: 02/02/2022 16:45 MEDICATIONS Pitocin (milliunits): Decreased to @ 10 Datetime: 02/02/2022 16:27 Epidural Procedure Other: Pump Started Datetime: 02/02/2022 16:25 Epidural Procedure: Loading Dose Datetime: 02/02/2022 16:11 ANESTHESIA Anesthesia Plans: Local Datetime: 02/02/2022 16:10 Anesthesia Comments: Aube, MANAGER TITLE at bedside Datetime: 02/02/2022 16:05 Antibiotics: Start Antibiotics; Ampicillin IV 2 Gm Datetime: 02/02/2022 15:48 Monitor Interventions for UA: IUPC Inserted Datetime: 02/02/2022 15:20 Antiemetics/Antacids: Zofran (mg) @ 4 Datetime: 02/02/2022 15:15 VAGINAL EXAM Dilatation (cm): 5.0 Effacement (%): 100 Station: -1 Exam by: Dr. Otto Datetime: 02/02/2022 14:45 Monitor Interventions for FHR: Ultrasound Adjusted Datetime: 02/02/2022 14:40 Membranes Rupture Method: Spontaneous Amniotic Fluid Color: Clear Amniotic Fluid Amount: Small Nitrazine: Positive Datetime: 02/02/2022 07:23 PAIN Pain Scale: 0 Pain Presence: None/Denies Pain Type: N/A MATERNAL ASSESSMENT Level of Consciousness: Alert DTR's/Clonus: DTRs 1+ Headache: Denies Breath Sounds, Left: Clear and Equal Breath Sounds, Right: Clear and Equal Nausea/Vomiting: Denies RUQ Epigastric Pain: Denies Datetime: 02/02/2022 06:45 Intensity IUP (mmHg): mild Datetime: 02/02/2022 00:00 Stage of : Temperature (C): 36.8 Temperature Route: Oral Datetime: 02/01/2022 22:30 Oxygen Method: Room Air Datetime: 02/01/2022 22:01 LaborFlag: Labor Datetime: 02/01/2022 13:30 Pain Coping: Sleeping
== END 2022-02-05 12:15 | disposition home or self-care (01) | DRG 787 ==
LOC: WFO 07:31 → FBP 07:34 → WFO 10:53
PROVIDERS: ADMIT Obstetrics & Gynecology; ATTEND Obstetrics & Gynecology
PROC: 3E033VJ Introduction of Other Hormone into Peripheral Vein, Percutaneous Approach (ICD-10-PCS; 2022-02-01)
PROC: 3E0DXGC Introduction of Other Therapeutic Substance into Mouth and Pharynx, External Approach (ICD-10-PCS; 2022-02-01)
PROC: 10H07YZ Insertion of Other Device into Products of Conception, Via Natural or Artificial Opening (ICD-10-PCS; 2022-02-02)
PROC: 10D00Z1 Extraction of Products of Conception, Low, Open Approach (ICD-10-PCS; principal; 2022-02-02 18:30)
DX: O13.4 Gestational [pregnancy-induced] hypertension without significant proteinuria, complicating childbirth (principal); D62 Acute posthemorrhagic anemia; O76 Abnormality in fetal heart rate and rhythm complicating labor and delivery; Z3A.37 37 weeks gestation of pregnancy; Z37.0 Single live birth; O99.824 Streptococcus B carrier state complicating childbirth; O75.89 Other specified complications of labor and delivery; R11.2 Nausea with vomiting, unspecified; O90.81 Anemia of the puerperium; O99.62 Diseases of the digestive system complicating childbirth; K21.9 Gastro-esophageal reflux disease without esophagitis; Z82.49 Family history of ischemic heart disease and other diseases of the circulatory system; Z83.49 Family history of other endocrine, nutritional and metabolic diseases; Z86.16 Personal history of COVID-19
CPT/HCPCS: 36415; 74178; 80053; 85025; 85027; 86850; 86900; 86901; A9270; J1200; J2210; J7040; J7120; Q9967

== ENCOUNTER 2022-10-08 07:54 | Outpatient (CLI) | payer OTHER ==
[2022-10-08] MEDS ORDERED: iohexoL-300 100 ML VIAL ONE (08:17)
[2022-10-08] MEDS ORDERED: DIATR MEGLU/DIATRIZOATE SODIUM 120 ML BOTTLE ONE (08:17)
[2022-10-08] MEDS ORDERED: DIATRIZOATE MEGLU/DIATRIZO SOD 30 ML BOTTLE PO ONE (09:58)
[2022-10-08] MEDS ORDERED: iohexoL-300 100 ML VIAL IVP ONE (09:58)
--- NOTE | 2022-10-08 21:40 | CT Report ---
PROCEDURE: ABDOMEN/PELVIS W INDICATIONS: LOWER ABDOMINAL PAIN CONTRAST: 100ml omni 300 TECHNIQUE: After the administration of contrast, 5 mm thick sections acquired from the diaphragms to the symphys is. 5 mm thick coronal and sagittal reformats were acquired. For radiation dose reduction, the foll owing was used: automated exposure control, adjustment of mA and/or kV according to patient size. COMPARISON: None. FINDINGS: Image quality: Excellent. ABDOMEN: Lung bases: Lung bases are clear. Heart size is normal. Solid organs: Liver and spleen are normal in size and enhancement. Gallbladder is normal. Biliary system is non dilated. Pancreas enhances normally. No adrenal nodules. Kidneys demonstrate normal size and enhancement, without hydronephrosis. Peritoneum and bowel: Bowel loops demonstrate normal wall thickness and caliber. No free fluid or a ir. Nodes and vessels: No retroperitoneal or mesenteric adenopathy by size criteria. Aorta and inferior vena cava are normal in size. Miscellaneous: No ventral hernias. PELVIS: Genitourinary: An IUD is present and is located between the uterus and therefore has perforated throu gh the myometrium. Miscellaneous: No inguinal hernias or adenopathy. Bones: No suspicious bony lesions. No vertebral body compression fractures. IMPRESSION: Perforation of the IUD through the anterior myometrium with current positioning between the bladder and the anterior uterus. Reviewed by: Ronaldo Jackson on 10/08/2022 8:39 PM [facility] [[email or web address]] Approved by: Ronaldo Jacksno on 10/08/2022 8:39 PM [facility] [[email or web address]] Station ID: [id number]
== END 2022-10-08 07:55 | disposition home or self-care (01) ==
LOC: DI 07:54
PROVIDERS: ATTEND Nurse Practitioner Family
DX: T83.32XA Displacement of intrauterine contraceptive device, initial encounter (principal); R10.30 Lower abdominal pain, unspecified
CPT/HCPCS: 36415; 74177; 82150; 82565; 83690; 84703; Q9963; Q9967

== ENCOUNTER 2022-10-08 08:09 | Outpatient (CLI) | payer OTHER ==
[2022-10-08 08:43] LABS: CREATININE 0.7 mg/dL (0.4-1.0)
[2022-10-08 09:46] LABS: HCG,QUALITATIVE BLOOD NEGATIVE
== END 2022-10-08 08:10 | disposition home or self-care (01) ==
LOC: LAB 08:09
PROVIDERS: ATTEND Nurse Practitioner Family
DX: R10.30 Lower abdominal pain, unspecified (principal)
CPT/HCPCS: 36415; 82150; 82565; 83690; 84703

== ENCOUNTER 2022-10-14 07:21 | Day surgery (SDC) | payer OTHER ==
--- NOTE | 2022-10-14 07:53 | ED Physician Documentation ---
PD HPI FEMALE - Stated complaint Stated Complaint: ABD PX - Chief complaint Chief Complaint: Abd Pain - History obtained from History obtained from: Patient - History of Present Illness Timing - onset: How many weeks ago (She has had pelvic/lower abdominal pain for at least a week or more. Its been more severe the past 6-7 days. She was seen in the ER 6 days ago and a CT showed a perforation of the uterus anteriorly with the IUD. No signs of infection nor free fluid. Seen by [facility] and surgery planned for today.) Timing - duration: Weeks Timing - details: Gradual onset, Still present (more severe pain the past day, into this morning. [place] low grade fever last evening and temp was 99.6. Pain still lower abd.), Waxing and waning Associated symptoms: Fever (mild last evening), Pelvic pain. No: Vaginal bleeding, Dysuria Recently seen: Emergency Dept Review of Systems Constitutional: reports: Fever. denies: Myalgias Nose: denies: Rhinorrhea / runny nose, Congestion Throat: denies: Sore throat Respiratory: denies: Cough GI: reports: Abdominal Pain, Nausea. denies: Vomiting, Constipation, Diarrhea : denies: Discharge, Vaginal bleeding Neurologic: denies: Generalized weakness PD PAST MEDICAL HISTORY - Past Medical History Past Medical History: Yes Cardiovascular: Hypertension Respiratory: None Neuro: None Endocrine/Autoimmune: Other GI: None : None HEENT: None Psych: Anxiety Musculoskeletal: None Derm: Eczema - Past Surgical History Past Surgical History: No General: Other /[facility]: section HEENT: Other - Present Medications Home Medications: Ambulatory Orders Medication Instructions Recorded Confirmed Lisdexamfetamine Dimesylate 30 mg PO DAILY 10/12/22 10/12/22 [Vyvanse] oxyCODONE [Roxicodone] 2.5 - 5 mg PO Q4H PRN #5 tablet 10/14/22 - Allergies Allergies/Adverse Reactions: Allergies Allergy/AdvReac Type Severity Reaction Status Date / Time Iodinated Contrast Media Allergy Hives Verified 10/14/22 07:38 sulfamethoxazole Allergy Respiratory Verified 10/14/22 07:38 [From Bactrim] trimethoprim [From Bactrim] Allergy Respiratory Verified 10/14/22 07:38 - Social History Does the pt smoke?: No Smoking Status: Never smoker Does the pt drink ETOH?: No Does the pt have substance abuse?: No - Immunizations Immunizations are current?: Yes - POLST Patient has POLST: No PD ED PE NORMAL - Vitals Vital signs reviewed: Yes - General General: Alert and oriented X 3, Well developed/nourished - Cardiac Cardiac: RRR, No murmur - Respiratory Respiratory: Clear bilaterally - Abdomen Abdomen: Normal bowel sounds, Soft, Non distended, No organomegaly, Other (tender suprapubic area with guarding and percussion tenderness. some tenderness up to the umbilical area. No distension. ) Results - Vitals Vitals: Vital Signs - 24 hr 10/14/22 10/14/22 10/14/22 07:33 09:38 11:42 Temperature 37.0 C 36.5 C Heart Rate 72 68 84 Respiratory 14 16 17 Rate Blood Pressure 151/100 H 143/89 H 109/90 H O2 Saturation 99 100 100 10/14/22 10/14/22 10/14/22 11:49 11:54 12:00 Temperature 36.9 C Heart Rate 85 74 66 Respiratory 14 18 12 Rate Blood Pressure 122/90 H 128/86 H 130/68 O2 Saturation 100 100 100 10/14/22 10/14/22 12:05 12:21 Temperature Heart Rate 70 78 Respiratory 17 18 Rate Blood Pressure 122/75 113/62 O2 Saturation 99 100 Oxygen O2 Source Room air - Labs Labs: Laboratory Tests 10/14/22 10/14/22 10/14/22 08:22 08:22 08:29 WBC 9.3 RBC 4.63 Hgb 13.2 Hct 41.0 MCV 88.6 MCH 28.5 MCHC 32.2 RDW 13.2 Plt Count 394 MPV 9.2 Neut # (Auto) 6.2 Lymph # (Auto) 2.1 [place] # (Auto) 0.5 Eos # (Auto) 0.3 Baso # (Auto) 0.0 Absolute Nucleated RBC 0.00 Nucleated RBC % 0.0 Sodium 142 Potassium 4.3 Chloride 108 Carbon Dioxide 26 Anion Gap 8.0 BUN 13 Creatinine 0.7 Estimated GFR (MDRD) 97 Glucose 106 H Calcium 9.3 Total Bilirubin 0.4 AST 15 ALT 16 Alkaline Phosphatase 97 Total Protein 7.7 Albumin 3.8 Globulin 3.9 Albumin/Globulin Ratio 1.0 Lipase 30 Urine Color YELLOW Urine Clarity CLEAR Urine pH 6.5 Ur Specific [place] 1.020 Urine Protein NEGATIVE Urine Glucose (UA) NEGATIVE Urine Ketones NEGATIVE Urine Occult Blood SMALL H Urine Nitrite NEGATIVE Urine Bilirubin NEGATIVE Urine Urobilinogen 0.2 (NORMAL) Ur Leukocyte Esterase NEGATIVE Urine RBC 0-5 Urine WBC 0-3 Ur Squamous Epith Cells RARE Squamous Urine Bacteria Rare Urine Casts 0-2 Hyaline Casts Urine Mucus Few Strands Ur Microscopic Review INDICATED Urine Culture Comments NOT INDICATED Urine HCG, Qual NEGATIVE PD Medical Decision Making - ED course Complexity details: reviewed old records (I reviewed the prior CT report and looked at the images from 6 days ago.), considered differential (The patient has unknown uterine perforation from her IUD anteriorly. It was diagnosed 6 days ago and she had seen gynecology and has scheduled surgery for today. There was a change in her insurance so perhaps some delay for the surgery. However she is now having increasing pain significantly.), d/w patient, d/w makeup sales consultant (I talk ed with Dr. Valverde who is on for [facility] and the surgeon who had seen her. He will come and evaluate the patient.) ED course: With known perforation of the uterus anteriorly from her IUD. It was seen on CT scan 6 days ago. She is having increased pain last night and into today with low-grade fever last night. Concern for more urgent need if any developing infection etc. Departure - Departure Disposition: ED Transfer to [facility] Clinical Impression: Acute bilateral lower abdominal pain, Uterine perforation by intrauterine contraceptive device Condition: Stable Discharge Date/Time: 10/14/22 10:30
[2022-10-14 08:26] LABS: BASOPHILS % (AUTO) 0.4 %; EOSINOPHILS # (AUTO) 0.3 10^3/uL (0.0-0.7); EOSINOPHILS % (AUTO) 3.7 %; HGB - HEMOGLOBIN 13.2 g/dL (12.0-16.0); LYMPHOCYTES # (AUTO) 2.1 10^3/uL (1.5-3.5); LYMPHOCYTES % (AUTO) 22.9 %; MEAN CORPUSCULAR HEMOGLOBIN 28.5 pg (27.0-31.0); MEAN CORPUSCULAR HGB CONC 32.2 g/dL (32.0-36.0); MEAN CORPUSCULAR VOLUME 88.6 fL (81.0-99.0); MEAN PLATELET VOLUME 9.2 fL (7.9-10.8); MONOCYTES # (AUTO) 0.5 10^3/uL (0.0-1.0); MONOCYTES % (AUTO) 5.7 %; NEUTROPHILS # (AUTO) 6.2 10^3/uL (1.5-6.6); NEUTROPHILS % (AUTO) 67.1 %; PLT - PLATELET COUNT 394 10^3/uL (130-450); RED BLOOD COUNT 4.63 10^6/uL (4.20-5.40); RED CELL DISTRIBUTION WIDTH 13.2 % (12.0-15.0); WHITE BLOOD COUNT 9.3 x10^3/uL (4.8-10.8)
[2022-10-14 08:38] LABS: BILIRUBIN,URINE NEGATIVE (NEGATIVE); GLUCOSE, URINE (UA) NEGATIVE (NEGATIVE); KETONES,URINE (UA) NEGATIVE (NEGATIVE); LEUKOCYTE ESTERASE, URINE NEGATIVE (NEGATIVE); NITRITE,URINE NEGATIVE (NEGATIVE); OCCULT BLOOD,URINE SMALL (NEGATIVE); PH,URINE 6.5 PH (5.0-7.5); PROTEIN,URINE NEGATIVE (NEGATIVE); UROBILINOGEN,URINE 0.2 (NORMAL) E.U./dL (NORMAL)
[2022-10-14 08:39] LABS: CLARITY,URINE CLEAR (CLEAR); HCG UR QUAL NEGATIVE
[2022-10-14 08:44] LABS: ALBUMIN 3.8 g/dL (3.2-5.5); BILIRUBIN,TOTAL 0.4 mg/dL (0.2-1.0); CALCIUM 9.3 mg/dL (8.5-10.3); CREATININE 0.7 mg/dL (0.4-1.0); POTASSIUM 4.3 mmol/L (3.5-5.0); TOTAL PROTEIN 7.7 g/dL (6.7-8.2)
[2022-10-14 08:48] LABS: BACTERIA,URINE Rare /HPF (None Seen); CASTS, URINE 0-2 Hyaline Casts /LPF; MUCUS,URINE Few Strands; RBC,URINE 0-5 /HPF (0-5); SQUAMOUS EPITHELIAL CELL,UR RARE Squamous (<= Few); WBC,URINE 0-3 /HPF (0-5)
[2022-10-14] MEDS ORDERED: LACTATED RINGERS 1,000 ML IV STA (09:09)
[2022-10-14] MEDS ORDERED: HYDROmorphone 1 MG/ML CARPUJECT IVP STA (09:09)
--- NOTE | 2022-10-14 09:28 | CONSULTATION NOTE ---
Surgery Consult - Consult Date Consult Date: 10/14/22 - Chief Complaint Chief Complaint: Pelvic pain - Home Meds/Allergies Home Medications: Patient History Medication Instructions Recorded Confirmed Lisdexamfetamine Dimesylate 30 mg PO DAILY 10/12/22 10/12/22 [Vyvanse] Allergies/Adverse Reactions: Allergies Allergy/AdvReac Type Severity Reaction Status Date / Time Iodinated Contrast Media Allergy Hives Verified 10/14/22 07:38 sulfamethoxazole Allergy Respiratory Verified 10/14/22 07:38 [From Bactrim] trimethoprim [From Bactrim] Allergy Respiratory Verified 10/14/22 07:38 - Vital Signs Vital Signs: Last Vital Signs Temp 98.6 F 10/14/22 07:33 Pulse 72 10/14/22 07:33 Resp 14 10/14/22 07:33 BP 151/100 H 10/14/22 07:33 Pulse Ox 99 10/14/22 07:33 O2 Flow Rate - Lab Results Result Diagrams: 10/14/22 08:22 10/14/22 08:22 - Consultation Note Consultation Note: HPI: Patient is a 31-year-old G1, P1 presenting today for worsening abdominal pain. She is well-known to me, and I have spoken with her numerous times this week and saw her in the office yesterday for worsening pain. She is known to have a perforated IUD that is between the bladder and the uterus, likely still perforating through the uterus. She says the pain has become much worse over the last several weeks. Has been taking Tylenol ibuprofen without significant relief. She is also used heating pad and warm baths with no relief. She was initially seen for this intermittent pain around August and has worsened over the last couple of months. When I saw her yesterday, she was worried she would not make it through the weekend and we try to expedite surgical planning for a planned outpatient procedure. Overnight her pain worsened and was a sharp stabbing pain that worsened with each cough, anytime she rolled on her side her belly. She had a temperature of mid 99's, but no absolute fever. She does have a small amount of blood in her urine today. All other symptoms reviewed and were negative except per HPI. PMH Obesity Possible lupus, Ashlee's thyroiditis, GERD, anxiety PSH Primary low-transverse section, lymph node dissection 2017, was not P, Lasix SH Denies tobacco, ago, drugs Family History Family history of thyroid disorders Allergies Sulfamethoxazole trimethoprim, iodinated contrast material Medications Ibuprofen and Tylenol Physical exam: General: Alert, oriented, crying through exam. Head: Normal cephalic atraumatic Eyes: PERRLA, extraocular motions intact. Respiratory: Normal rate of respiration. No accessory muscle use, normal respiratory effort. Cardiovascular: Regular rate and rhythm Abdomen: Mild tenderness to palpation without peritoneal signs. Extremities: Normal range of motion Neuro: Oriented x3. Normal movements Psych: Appropriate mood and affect. Normal judgment and insight Plan 31-year-old G1, P1 with perforated IUD. 1. Perforated IUD: -Causing her an increase in pain. While this is likely not perforated all the way through the uterus, the uterine pain is causing her a lot of distress due to the significant pain. She was trying to manage this as a scheduled outpatient, but has been unable to cope with the pain. -Plan for laparoscopic removal of IUD. We did discuss that if this appears embedded in the bladder, we will likely abandon surgery and have her sent to a facility with urology. She does have some blood in her urine, but this may be the start of menses versus irritation from the IUD. On CT it looks like it is between the two but may be attached or invading into the bladder at this time. -Plan for 2 g cefazolin as unsure of the process in the abdomen. 2. Hypertension:
[2022-10-14] MEDS ORDERED: LIDOCAINE MPF 2%-EPI 1:200000 20 ML VIAL ONE (09:49)
[2022-10-14] MEDS ORDERED: BUPIVACAINE 0.5% PF 30 ML VIAL ONE (09:49)
[2022-10-14] MEDS ORDERED: PROPOFOL 200 MG/20 ML VIAL IVP ONE (09:53)
[2022-10-14] MEDS ORDERED: ROCURONIUM 50 MG/5 ML VIAL ONE ×2 (09:54→11:05)
[2022-10-14] MEDS ORDERED: MIDAZOLAM 2 MG/2 ML VIAL ONE (09:55)
[2022-10-14] MEDS ORDERED: fentaNYL 100 MCG/2 ML VIAL ONE (09:55)
[2022-10-14] MEDS ORDERED: MORPHINE 2 MG/ML CARPUJECT IVP PRN ×2 (09:56→11:53)
[2022-10-14] MEDS ORDERED: fentaNYL 100 MCG/2 ML VIAL IVP PRN ×2 (09:56→11:53)
[2022-10-14] MEDS ORDERED: ePHEDrine 50 MG/ML VIAL IVP PRN ×2 (09:56→11:53)
[2022-10-14] MEDS ORDERED: METOCLOPRAMIDE 10 MG/2 ML VIAL IVP PRN ×2 (09:56→11:53)
[2022-10-14] MEDS ORDERED: NALOXONE 0.4 MG/ML VIAL IVP PRN ×2 (09:56→11:53)
[2022-10-14] MEDS ORDERED: ATROPINE ABBOJECT 1 MG/10 ML SYRINGE IVP PRN ×2 (09:56→11:53)
[2022-10-14] MEDS ORDERED: ONDANSETRON 4 MG/2 ML VIAL IVP PRN ×2 (09:56→11:53)
[2022-10-14] MEDS ORDERED: HYDROmorphone 0.5 MG/0.5 ML SYRINGE IVP PRN ×2 (09:56→11:53)
--- NOTE | 2022-10-14 09:56 | ANESTHESIA ---
Pre-Anesthesia VS, & Labs - Diagnosis perforated IUD - Procedure Laparoscopic removal of perforated IUD Vital Signs: Temp Pulse Resp BP Pulse Ox O2 Flow Rate 37.0 C 68 16 143/89 H 100 10/14/22 07:33 10/14/22 09:38 10/14/22 09:38 10/14/22 09:38 10/14/22 09:38 Height: 5 ft 8 in Weight (kg): 129.727 kg Body Mass Index: 43.4 BMI Classification: Morbidly Obese - NPO >8 hours - Is Patient ?: No - Lab Results Current Lab Results: Laboratory Tests 10/14/22 08:22: Sodium 142, Potassium 4.3, Chloride 108, Carbon Dioxide 26, Anion Gap 8.0, BUN 13, Creatinine 0.7, Estimated GFR (MDRD) 97, Glucose 106 H, Calcium 9.3, Total Bilirubin 0.4, AST 15, ALT 16, Alkaline Phosphatase 97, Total Protein 7.7, Albumin 3.8, Globulin 3.9, Albumin/Globulin Ratio 1.0, Lipase 30 10/14/22 08:22: WBC 9.3, RBC 4.63, Hgb 13.2, Hct 41.0, MCV 88.6, MCH 28.5, MCHC 32.2, RDW 13.2, Plt Count 394, MPV 9.2, Neut # (Auto) 6.2, Lymph # (Auto) 2.1, [place] # (Auto) 0.5, Eos # (Auto) 0.3, Baso # (Auto) 0.0, Absolute Nucleated RBC 0.00, Nucleated RBC % 0.0 Fish Bones: 10/14/22 08:22 10/14/22 08:22 Home Medications and Allergies Active Medications Lactated Ringer's (Lr) 1,000 mls @ 250 mls/hr IV .Q4H STA Stop: 10/14/22 13:08 Last Admin: 10/14/22 09:25 Dose: 250 mls/hr Lisdexamfetamine Dimesylate [Vyvanse] 30 mg PO DAILY 10/12/22 Allergies/Adverse Reactions: Allergies Allergy/AdvReac Type Severity Reaction Status Date / Time Iodinated Contrast Media Allergy Hives Verified 10/14/22 07:38 sulfamethoxazole Allergy Respiratory Verified 10/14/22 07:38 [From Bactrim] trimethoprim [From Bactrim] Allergy Respiratory Verified 10/14/22 07:38 Anes History & Medical History - Anesthetic History Anesthesia Complications: reports: No previous complications - Medical History Cardiovascular: reports: Hypertension Pulmonary: reports: None Gastrointestinal: reports: None Urinary: reports: None Neuro: reports: None Musculoskeletal: reports: None Endocrine/Autoimmune: reports: Other Skin: reports: Eczema Smoking Status: Never smoker - Surgical History General: reports: Other Eyes Ears Nose Throat (EENT): reports: Other Gynecologic: reports: section Exam General: Alert, Oriented x3 Dental: WNL Mouth Opening: Greater than 4 Fingerbreadths Neck Mobility: Normal Mallampati classification: I Thyromental Distance: greater than 6 cm Respiratory: Lungs clear Cardiovascular: Regular rate Plan Anesthesia Type: General Consent for Procedure(s) Verified and Reviewed: Yes Code Status: Attempt Resuscitation ASA classification: 2-Mild systemic disease Is this case an emergency?: Yes
[2022-10-14] MEDS ORDERED: LACTATED RINGERS 1,000 ML IV SCH ×2 (10:00→11:53)
[2022-10-14] MEDS ORDERED: ceFAZolin 1 GM VIAL ONE (10:18)
[2022-10-14] MEDS ORDERED: ONDANSETRON 4 MG/2 ML VIAL ONE (10:52)
[2022-10-14] MEDS ORDERED: DEXAMETHASONE 4 MG/ML VIAL ONE (10:52)
[2022-10-14] MEDS ORDERED: ACETAMINOPHEN 1,000 MG/100 ML 1,000 MG/100 ML BAG IV ONE (10:58)
[2022-10-14] MEDS ORDERED: LIDOCAINE MPF 1%-EPI 1:200000 30 ML VIAL SUBQ ONE ×2 (11:04)
[2022-10-14] MEDS ORDERED: BUPIVACAINE 0.5% PF 30 ML VIAL SUBQ ONE ×2 (11:04)
[2022-10-14] MEDS ORDERED: SUGAMMADEX 200 MG/2 ML VIAL IVP ONE (11:29)
[2022-10-14] MEDS ORDERED: LACTATED RINGERS 1,000 ML IV ONE (11:42)
[2022-10-14] MEDS ORDERED: HYDROcod/ACETAM 5/325 MG TABLET PO PRN (12:00)
--- NOTE | 2022-10-14 12:00 | OPERATIVE REPORT ---
Operative Report - General Planned Procedure: Laparoscopic removal of IUD Pre-Op Diagnosis: Perforated IUD Procedure Performed: Laparoscopic removal of IUD. Post Op Diagnosis: Perforated IUD - Procedure Note Primary Surgeon: Luis Valverde MD Anesthesia Provider: Heidy Ellis CRNA Anesthesia Technique: General ET tube Pathology: None Estimated Blood Loss (mL): 5 Complications: None - Other Other Information/Narrative: Patient was taken to the OR and placed in the dorsal lithotomy position using great white stirrups after adequate anesthesia was obtained. Patient was prepped and draped in the usual fashion. 2 g of cefazolin was given to the patient prior to surgery. 2 mils of local anesthesia was given to anesthetize the infraumbilical region. An 11 blade scalpel was used to incise the skin. Direct visual entry was used to place the infraumbilical trocar. Upon entering the peritoneal cavity, low flow was used to ensure appropriate positioning. Upon visualization of the abdominal cavity, high flow was then initiated. And additional trocar was placed under visualization in a similar fashion in the left lower quadrant. The patient is then placed in Trendelenburg position and the bowel was moved out of the way. Upon visualizing the uterus, the arm of the IUD was seen in the lower uterine segment. This was bent and appeared to be in undeployed IUD, however after a small incision with Metzenbaum scissors, the arm was grasped with a Prestige grasper and extended allowing visualization of an IUD arm. I attempted to remove this laparoscopically, but it appeared more difficult to remove laparoscopically so attention was then turned vaginally. Using a sterile speculum, the IUD strings were still seen from the cervical os, and this was grasped with a ring forcep. Using gentle traction, the end of the IUD was visualized. It was then grasped with ring forceps and removed using steady traction. The IUD was examined and found to be intact. Sterile attire was then changed and we returned to the abdomen. The uterus was hemostatic. Visualizing the anterior the abdomen was reviewed for hemostasis, and a healthy-appearing liver was noted. The trocars were then removed, and abdomen was evacuated of gas. The trocar sites were then closed with a 4-0 Monocryl in a sub-cuticular fashion and covered with Dermabond. Patient was taken to the PACU in stable condition.
[2022-10-14] MEDS ORDERED: HYDROcod/ACETAM 5/325 MG TABLET ONE (12:20)
[2022-10-14 12:22] VITALS: BP 113/62
--- NOTE | 2022-10-14 14:11 | ANESTHESIA POST OP EVALUATION ---
Anesthesia Post Eval - Post Anesthesia Eval Vitals: Last Vital Signs Temp 36.9 C 10/14/22 11:54 Pulse 78 10/14/22 12:21 Resp 18 10/14/22 12:21 BP 113/62 10/14/22 12:21 Pulse Ox 100 10/14/22 12:21 O2 Flow Rate CV Function Including HR & BP: Stable Pain Control: Satisfactory Nausea & Vomiting: Negative Mental Status: Baseline Respiratory Status: Airway Patent Hydration Status: Satisfactory Anesthesia Complications: None
== END 2022-10-14 09:31 | disposition home or self-care (01) ==
LOC: ED 07:21 → SDS 09:30
PROVIDERS: ATTEND Obstetrics & Gynecology
DX: T83.89XA Other specified complication of genitourinary prosthetic devices, implants and grafts, initial encounter (principal); T83.84XA Pain due to genitourinary prosthetic devices, implants and grafts, initial encounter; I10 Essential (primary) hypertension; E66.01 Morbid (severe) obesity due to excess calories; Z68.41 Body mass index [BMI] 40.0-44.9, adult
CPT/HCPCS: 36415; 58301; 58578; 80053; 81001; 81025; 83690; 85025; 96374; 99284; 99285; A9270; J0131; J1170; J7120; 81003; 87086

== ENCOUNTER 2023-09-19 09:53 | Day surgery (SDC) | payer OTHER ==
[2023-09-19] MEDS: LACTATED RINGERS 1,000 ML IV ONE ×2 (10:10→13:17)
[2023-09-19 10:14] LABS: HCG UR QUAL NEGATIVE
[2023-09-19] MEDS: ACETAMINOPHEN 325 MG TABLET PO ONE (10:20)
[2023-09-19] MEDS ORDERED: PROPOFOL 200 MG/20 ML VIAL IVP ONE (10:46)
[2023-09-19] MEDS ORDERED: LIDOCAINE-PF 2% 10 ML AMP SUBQ ONE (10:46)
[2023-09-19] MEDS ORDERED: ROCURONIUM 50 MG/5 ML VIAL ONE (10:47)
[2023-09-19] MEDS ORDERED: MIDAZOLAM 2 MG/2 ML VIAL ONE (10:51)
[2023-09-19] MEDS ORDERED: fentaNYL 100 MCG/2 ML VIAL ONE (10:52)
[2023-09-19] MEDS ORDERED: BUPIVACAINE 0.25% PF 30 ML VIAL ONE (10:59)
--- NOTE | 2023-09-19 11:08 | ANESTHESIA ---
Pre-Anesthesia VS, & Labs - Diagnosis RIGHT OVARIAN CYST - Procedure LAPARASCOPIC RIGHT OVARIAN CYSTECTOMY Height: 5 ft 11 in Weight (kg): 116.3 kg Body Mass Index: 35.7 BMI Classification: Obese - Is Patient ?: No Home Medications and Allergies Home Medications: Ambulatory Orders Duloxetine HCl [Cymbalta] 20 mg PO DAILY 09/18/23 Methylphenidate HCl [Relexxii] 54 mg PO DAILY 09/18/23 hydrOXYzine pamoate [Vistaril] 25 mg PO HS PRN MDD 50mg 09/18/23 predniSONE [Deltasone] 10 mg PO DAILY 09/18/23 Duloxetine HCl [Cymbalta] 20 mg PO DAILY 09/18/23 Methylphenidate HCl [Relexxii] 54 mg PO DAILY 09/18/23 hydrOXYzine pamoate [Vistaril] 25 mg PO HS PRN MDD 50mg 09/18/23 predniSONE [Deltasone] 10 mg PO DAILY 09/18/23 Allergies/Adverse Reactions: Allergies Allergy/AdvReac Type Severity Reaction Status Date / Time Iodinated Contrast Media Allergy Hives Verified 10/14/22 07:38 sulfamethoxazole Allergy Respiratory Verified 10/14/22 07:38 [From Bactrim] trimethoprim [From Bactrim] Allergy Respiratory Verified 10/14/22 07:38 Anes History & Medical History - Anesthetic History Anesthesia Complications: reports: No previous complications Family history of Anesthesia Complications: Denies Family history of Malignant Hyperthermia: Denies - Medical History Cardiovascular: reports: None Pulmonary: reports: None Gastrointestinal: reports: None Urinary: reports: Kidney stones Neuro: reports: None Musculoskeletal: reports: Fatigue Endocrine/Autoimmune: reports: Other (BEING WORKED UP FOR SOME TYPE OF AUTOIMMUNE DISORDER CURRENTLY) Blood Disorders: reports: None (DURING CURRENT WORKUP FOR AUTOIMMUNE DISORDER, 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; BRUISES EASILY, DOES NOT BLEED FROM GUMS, NO UNUSUAL BLEEDING WITH PREVIOUS SURGERIES) Skin: reports: Eczema Smoking Status: Never smoker Psychosocial: reports: No issues indicated History of Cancer?: No - Surgical History General: reports: Other Eyes Ears Nose Throat (EENT): reports: Other Gynecologic: reports: section, Other Results - EKG Results EKG Comparison: Reviewed EKG Exam General: Alert Dental: WNL Mouth Openin Fingerbreadth Neck Mobility: Normal Mallampati classification: II Thyromental Distance: 4-6 cm Respiratory: Lungs clear Cardiovascular: Regular rate Plan Anesthesia Type: General Consent for Procedure(s) Verified and Reviewed: Yes Code Status: Attempt Resuscitation ASA classification: 2-Mild systemic disease Is this case an emergency?: No
[2023-09-19] MEDS ORDERED: NALOXONE 0.4 MG/ML VIAL IVP PRN (11:10)
[2023-09-19] MEDS ORDERED: ONDANSETRON 4 MG/2 ML VIAL IVP PRN (11:10)
[2023-09-19] MEDS ORDERED: ATROPINE ABBOJECT 1 MG/10 ML SYRINGE IVP PRN (11:10)
[2023-09-19] MEDS ORDERED: fentaNYL 100 MCG/2 ML VIAL IVP PRN (11:10)
[2023-09-19] MEDS ORDERED: ePHEDrine 50 MG/ML VIAL IVP PRN (11:10)
[2023-09-19] MEDS ORDERED: LACTATED RINGERS 1,000 ML IV SCH (12:00)
[2023-09-19] MEDS ORDERED: SEVOFLURANE 250 ML LIQUID INH ONE (12:37)
[2023-09-19] MEDS ORDERED: GLYCOPYRROLATE 1 MG/5 ML VIAL ONE (12:39)
[2023-09-19] MEDS: BUPIVACAINE 0.25% PF 30 ML VIAL SUBQ ONE ×2 (12:47)
[2023-09-19] MEDS ORDERED: SUGAMMADEX 200 MG/2 ML VIAL IVP ONE (12:56)
[2023-09-19] MEDS ORDERED: KETOROLAC 30 MG/ML VIAL ONE (13:04)
[2023-09-19] MEDS ORDERED: ONDANSETRON 4 MG/2 ML VIAL ONE (13:06)
--- NOTE | 2023-09-19 13:18 | OPERATIVE REPORT ---
Operative Report - General Planned Procedure: Laparoscopy with right salpingo-oophorectomy and left salpingectomy and look for other sources of pain. Pre-Op Diagnosis: Right pelvic pain Procedure Performed: as above. Post Op Diagnosis: right ovarian cyst - Procedure Note Primary Surgeon: Nataliia Chase MD Secondary Surgeon: Luis Valverde MD Anesthesia Provider: Eliezer Gilmore and Alea Frey Anesthesia Technique: General ET tube Pathology: right ovary with cyst and both fallopian tubes to pathology IV Fluids (mL): 800 Estimated Blood Loss (mL): 2 Urine Output (mL): 30 Indications: right lower quadrant pain for many months. Findings: right ovarian cyst, small peritubal cysts, right ovarian vein congestion. Complications: none - Other Other Information/Narrative: Patient has been painful, would like lsc to assess what is going on. Always hurts in right ovary area. wants removed. Does not want more children so would like ovarian cancer risk reducing salpingectomies as well. consents signed. discussed that it may or may not help her pain. That statistically menopause wi ll be a few years earlier with one ovary instead of 2 and no tubes. She is fine with that. Risks to bone and heart health discussed. Patient is brought to OR where General ETA is given. She is prepped and draped in normal fashion. legs in Brian stirrups. no abx. scds on. time out done. right side marked. speculum placed. cervix grasped with tenaculum and uterine manipulator placed. speculum removed. thomas catheter placed. gloves changed. attention to abdomen. umbilical prior scar injected with Marcaine. incision made. trocar placed under direct visualization. took 3 tries to get in properly. abdomen filled with CO2 gas. Contents examined. lots of pictures taken. Second trocar placed in right mid abdomen. 5 mm also. Third in left mid abdomen is 12 mm. Left tube elevated and Ligasure used to remove. pulled out thru large trocar. Right ureter examined, away from dissection. Right ovary elevated and Ligasure used to remove tube and ovary. placed in endbag. No bleeding. Bag brought out thru left incision. Gas let down and no bleeding. All instruments removed. 12 mm port site fascia closed with 0 Vicryl suture. Skin closed with 4-0 Monocryl and bandaids placed. Vaginal instruments removed. Thomas catheter removed. Patient extubated and brought to recovery room in stable condition.
[2023-09-19] MEDS ORDERED: HYDROmorphone 1 MG/ML CARPUJECT ONE (13:40)
[2023-09-19] MEDS: HYDROmorphone 0.5 MG/0.5 ML SYRINGE IVP PRN (13:44)
[2023-09-19] MEDS ORDERED: oxyCODONE 5 MG TABLET PO ONE (14:13)
[2023-09-19] MEDS ORDERED: oxyCODONE 5 MG TABLET ONE (14:14)
[2023-09-19 14:25] VITALS: BP 130/93; O2SAT 98
--- NOTE | 2023-09-19 16:35 | ANESTHESIA POST OP EVALUATION ---
Anesthesia Post Eval - Post Anesthesia Eval Vitals: Last Vital Signs Temp 36.1 C L 09/19/23 14:11 Pulse 78 09/19/23 14:11 Resp 16 09/19/23 14:11 BP 130/93 H 09/19/23 14:11 Pulse Ox 98 09/19/23 14:11 O2 Flow Rate CV Function Including HR & BP: Stable Pain Control: Satisfactory Nausea & Vomiting: Negative Mental Status: Baseline Respiratory Status: Airway Patent Hydration Status: Satisfactory Anesthesia Complications: None
== END 2023-09-19 09:54 | disposition home or self-care (01) ==
LOC: SDS 09:53
PROVIDERS: ATTEND Obstetrics & Gynecology
PROC: 0UT04ZZ Resection of Right Ovary, Percutaneous Endoscopic Approach (ICD-10-PCS; 2023-09-19)
PROC: 0UT74ZZ Resection of Bilateral Fallopian Tubes, Percutaneous Endoscopic Approach (ICD-10-PCS; principal; 2023-09-19 11:45)
DX: N83.11 Corpus luteum cyst of right ovary (principal); E66.9 Obesity, unspecified; Z32.02 Encounter for pregnancy test, result negative; Z68.39 Body mass index [BMI] 39.0-39.9, adult
CPT/HCPCS: 58661; 81025; A9270; J1170; J3490; J7120

== ENCOUNTER 2023-10-03 15:31 | Emergency (ER) | payer OTHER ==
[2023-10-03 16:14] LABS: BASOPHILS # (AUTO) 0.1 10^3/uL (0.0-0.1); BASOPHILS % (AUTO) 0.7 %; EOSINOPHILS # (AUTO) 0.1 10^3/uL (0.0-0.7); EOSINOPHILS % (AUTO) 1.2 %; HCT - HEMATOCRIT 40.6 % (37.0-47.0); HGB - HEMOGLOBIN 13.5 g/dL (12.0-16.0); LYMPHOCYTES # (AUTO) 2.4 10^3/uL (1.5-3.5); LYMPHOCYTES % (AUTO) 28.1 %; MEAN CORPUSCULAR HEMOGLOBIN 30.1 pg (27.0-31.0); MEAN CORPUSCULAR HGB CONC 33.3 g/dL (32.0-36.0); MEAN CORPUSCULAR VOLUME 90.4 fL (81.0-99.0); MEAN PLATELET VOLUME 8.7 fL (7.9-10.8); MONOCYTES # (AUTO) 0.5 10^3/uL (0.0-1.0); MONOCYTES % (AUTO) 6.4 %; NEUTROPHILS # (AUTO) 5.4 10^3/uL (1.5-6.6); NEUTROPHILS % (AUTO) 63.5 %; PLT - PLATELET COUNT 380 10^3/uL (130-450); RED BLOOD COUNT 4.49 10^6/uL (4.20-5.40); RED CELL DISTRIBUTION WIDTH 13.2 % (12.0-15.0); WHITE BLOOD COUNT 8.5 x10^3/uL (4.8-10.8)
[2023-10-03 16:28] LABS: ALBUMIN 4.5 g/dL (3.2-5.5); ALBUMIN/GLOBULIN RATIO 1.2 (1.0-2.2); BILIRUBIN,TOTAL 0.3 mg/dL (0.2-1.0); CALCIUM 9.8 mg/dL (8.5-10.3); CREATININE 0.7 mg/dL (0.6-1.3); POTASSIUM 3.8 mmol/L (3.5-4.5); TOTAL PROTEIN 8.2 g/dL (6.4-8.9)
[2023-10-03 16:46] LABS: BILIRUBIN,URINE NEGATIVE (NEGATIVE); GLUCOSE, URINE (UA) NEGATIVE (NEGATIVE); KETONES,URINE (UA) NEGATIVE (NEGATIVE); LEUKOCYTE ESTERASE, URINE NEGATIVE (NEGATIVE); NITRITE,URINE NEGATIVE (NEGATIVE); OCCULT BLOOD,URINE TRACE-INTA (NEGATIVE); PH,URINE 6.5 PH (5.0-7.5); PROTEIN,URINE NEGATIVE (NEGATIVE); UROBILINOGEN,URINE 0.2 (NORMAL) E.U./dL (NORMAL)
[2023-10-03 16:48] LABS: CLARITY,URINE CLEAR (CLEAR); HCG UR QUAL NEGATIVE
--- NOTE | 2023-10-03 18:09 | ED Physician Documentation ---
<Leo Monet - Last Filed: 10/04/23 00:32> History of Present Illness - Stated complaint Stated Complaint: HIGH BP/ - Chief complaint Chief Complaint: General PD PAST MEDICAL HISTORY - Present Medications Home Medications: Ambulatory Orders Medication Instructions Recorded Confirmed Duloxetine HCl [Cymbalta] 30 mg PO DAILY 09/18/23 10/03/23 Methylphenidate HCl [Relexxii] 54 mg PO DAILY 09/18/23 10/03/23 hydrOXYzine pamoate [Vistaril] 25 mg PO HS PRN MDD 50mg 09/18/23 10/03/23 Acetaminophen [Tylenol] 650 mg PO Q6H PRN #30 tab 09/19/23 10/03/23 Docusate Sodium 100Mg Capsule 100 - 200 mg PO BID PRN #60 cap 09/19/23 10/03/23 [Colace 100Mg Capsule] Ondansetron Odt [Zofran Odt] 4 mg TL Q6H PRN #30 tablet 09/19/23 10/03/23 Hydroxychloroquine [Plaquenil] 200 mg PO DAILY 10/03/23 10/03/23 Metoprolol Tartrate [Lopressor] 25 mg PO BID #30 tablet 10/04/23 - Allergies Allergies/Adverse Reactions: Allergies Allergy/AdvReac Type Severity Reaction Status Date / Time Iodinated Contrast Media Allergy Hives Verified 10/03/23 15:46 sulfamethoxazole Allergy Respiratory Verified 10/03/23 15:46 [From Bactrim] trimethoprim [From Bactrim] Allergy Respiratory Verified 10/03/23 15:46 Departure - Departure Disposition: 01 Home, Self Care Clinical Impression: Light-headed feeling, Elevated blood pressure reading, Abdominal pain Condition: Stable Instructions: [place] Weak[place] [facility] [place]Up: SARAH CHANG [Primary Care Provider] - Prescriptions: Metoprolol Tartrate [Lopressor] 25 mg PO BID #30 tablet Comments: Your testing today is reassuring with normal chemistries, white blood cell count and hemoglobin, urine test. Your EKG which checks your heart also shows a normal rhythm. We also do not see signs of a heart attack based on the blood tests. Your blood pressure and, at times, your pulse were quite elevated during your emergency department stay. This seemed to improve significantly with a dose of Lopressor (blood pressure medication) given through the IV. I have electronically submitted a prescription for Lopressor to the [facility] in [place]. Follow-up with your doctor/specialists as scheduled. If you do not have an appointment for follow-up with your primary care provider, I recommend you make the next available appointment for further monitoring of your blood pressure and determination as to whether or not you need to be on blood pressure medication longer term than what I have prescribed for you. Forms: Activity restrictions Discharge Date/Time: 10/04/23 00:49 <Lopez Sequeira - Last Filed: 10/04/23 07:50> History of Present Illness - History obtained from History obtained from: Patient - Additonal information Additional information: Patient is a 32-year-old female presenting for intermittent episodes of feeling lightheadedness with associated back and epigastric pain. Patient states that her symptoms start with an intense throbbing pain in the back that also leads to a burning sensation in the epigastric region. She then starts feeling lightheaded as if she is going to faint. She reports this has been happening over the past 3 to 4 days. She states she is also had some difficulties and feeling like she needs to urinate. She is not having any episodes of incontinence but states that she is unaware that her bladder is full but then w ill go to the bathroom and pee a lot. She did recently have surgery to have her ovary removed. She denies any burning with urination. Denies any blood with urination or abnormal vaginal discharge. She reports associated nausea. She has been checking her blood pressure at home as well during these episodes and at times has noted that it has been elevated in the 150s with the diastolic also being elevated around 100. She denies a history of hypertension. She did have preeclampsia but her blood pressure improved after the delivery. Review of Systems Constitutional: denies: Fever Cardiac: denies: Chest pain / pressure Respiratory: denies: Dyspnea GI: reports: Abdominal Pain, Nausea. 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: section, Oophrectomy, Other HEENT: Other - Social History Does the pt smoke?: No Smoking Status: Never smoker Does the pt drink ETOH?: No Does the pt have substance abuse?: No - Immunizations Immunizations are current?: Yes - POLST Patient has POLST: No PD ED PE NORMAL - General General: Alert and oriented X 3, No acute distress, Well developed/nourished - HEENT HEENT: Atraumatic, Moist mucous membranes, Pharynx benign - Neck Neck: Supple, no meningeal sign - Cardiac Cardiac: Strong equal pulses - Respiratory Respiratory: No respiratory distress, Clear bilaterally - Abdomen Abdomen: Normal bowel sounds, Soft, Non distended, Other (Mild periumbilical and Epigastric tenderness) - Back Back: No spinal TTP - Derm Derm: Warm and dry - Extremities Extremities: No deformity - Neuro Neuro: Alert and oriented X 3, No motor deficit, No sensory deficit, Normal speech Results - Vitals Vitals: Vital Signs - 24 hr 10/03/23 10/03/23 10/03/23 15:35 16:39 17:02 Temperature 36.0 C L Heart Rate 110 H 109 H 108 H Heart Rate [ Sitting] Heart Rate [ Standing] Heart Rate [ Supine] Respiratory 16 20 18 Rate Blood Pressure 151/105 H 144/130 H 146/86 H Blood Pressure [Sitting] Blood Pressure [Standing] Blood Pressure [Supine] O2 Saturation 99 100 100 10/03/23 10/03/23 10/03/23 17:54 19:00 20:15 Temperature Heart Rate 107 H 78 87 Heart Rate [ Sitting] Heart Rate [ Standing] Heart Rate [ Supine] Respiratory 20 16 17 Rate Blood Pressure 124/80 142/100 H Blood Pressure [Sitting] Blood Pressure [Standing] Blood Pressure [Supine] O2 Saturation 99 100 98 10/03/23 10/03/23 10/03/23 21:00 22:00 23:45 Temperature Heart Rate 92 89 Heart Rate [ 101 H Sitting] Heart Rate [ 113 H Standing] Heart Rate [ 99 Supine] Respiratory 20 12 Rate Blood Pressure 140/101 H Blood Pressure 163/107 H [Sitting] Blood Pressure 170/117 H [Standing] Blood Pressure 158/99 H [Supine] O2 Saturation 99 100 10/03/23 10/03/23 10/04/23 23:50 23:55 00:05 Temperature Heart Rate 81 75 81 Heart Rate [ Sitting] Heart Rate [ Standing] Heart Rate [ Supine] Respiratory 12 12 12 Rate Blood Pressure 130/95 H 131/100 H 141/102 H Blood Pressure [Sitting] Blood Pressure [Standing] Blood Pressure [Supine] O2 Saturation 100 97 98 10/04/23 10/04/23 10/04/23 00:15 00:30 00:45 Temperature Heart Rate 78 85 75 Heart Rate [ Sitting] Heart Rate [ Standing] Heart Rate [ Supine] Respiratory 16 14 20 Rate Blood Pressure 136/93 H 142/93 H 130/95 H Blood Pressure [Sitting] Blood Pressure [Standing] Blood Pressure [Supine] O2 Saturation 98 99 99 Oxygen O2 Source Room air - EKG (time done) 1546 EKG releavant findings:: EKG personally interpreted by author of this note. Relevant findings are: Rate 94, normal sinus rhythm, no STEMI, no ST depressions, QTc is 425 - Labs Labs: Laboratory Tests 10/03/23 10/03/23 10/03/23 14:00 16:11 16:11 WBC 8.5 RBC 4.49 Hgb 13.5 Hct 40.6 MCV 90.4 MCH 30.1 MCHC 33.3 RDW 13.2 Plt Count 380 MPV 8.7 Neut # (Auto) 5.4 Lymph # (Auto) 2.4 [place] # (Auto) 0.5 Eos # (Auto) 0.1 Baso # (Auto) 0.1 Absolute Nucleated RBC 0.00 Nucleated RBC % 0.0 D-Dimer Sodium 136 Potassium 3.8 Chloride 101 Carbon Dioxide 28 Anion Gap 7.0 BUN 9 Creatinine 0.7 Estimated GFR (MDRD) 96 Glucose 94 Calcium 9.8 Phosphorus Magnesium Total Bilirubin 0.3 AST 19 ALT 20 Alkaline Phosphatase 93 Troponin I High Sens Total Protein 8.2 Albumin 4.5 Globulin 3.7 Albumin/Globulin Ratio 1.2 Lipase 15 TSH Urine Color YELLOW Urine Clarity CLEAR Urine pH 6.5 Ur Specific [place] <=1.005 Urine Protein NEGATIVE Urine Glucose (UA) NEGATIVE Urine Ketones NEGATIVE Urine Occult Blood TRACE-INTA Urine Nitrite NEGATIVE Urine Bilirubin NEGATIVE Urine Urobilinogen 0.2 (NORMAL) Ur Leukocyte Esterase NEGATIVE Ur Microscopic Review NOT INDICATED Urine Culture Comments NOT INDICATED Urine HCG, Qual NEGATIVE 10/03/23 10/03/23 10/03/23 16:11 22:21 22:21 WBC 7.9 RBC 4.34 Hgb 13.0 Hct 39.6 MCV 91.2 MCH 30.0 MCHC 32.8 RDW 13.2 Plt Count 366 MPV 8.9 Neut # (Auto) 4.3 Lymph # (Auto) 2.9 [place] # (Auto) 0.5 Eos # (Auto) 0.1 Baso # (Auto) 0.1 Absolute Nucleated RBC 0.00 Nucleated RBC % 0.0 D-Dimer Sodium 138 Potassium 4.1 Chloride 104 Carbon Dioxide 27 Anion Gap 7.0 BUN 8 Creatinine 0.6 Estimated GFR (MDRD) 115 Glucose 96 Calcium 9.4 Phosphorus 3.5 Magnesium 2.0 Total Bilirubin AST ALT Alkaline Phosphatase Troponin I High Sens 2.3 Total Protein Albumin Globulin Albumin/Globulin Ratio Lipase TSH 1.97 Urine Color Urine Clarity Urine pH Ur Specific [place] Urine Protein Urine Glucose (UA) Urine Ketones Urine Occult Blood Urine Nitrite Urine Bilirubin Urine Urobilinogen Ur Leukocyte Esterase Ur Microscopic Review Urine Culture Comments Urine HCG, Qual 10/03/23 22:21 WBC RBC Hgb Hct MCV MCH MCHC RDW Plt Count MPV Neut # (Auto) Lymph # (Auto) [place] # (Auto) Eos # (Auto) Baso # (Auto) Absolute Nucleated RBC Nucleated RBC % D-Dimer 234.8 Sodium Potassium Chloride Carbon Dioxide Anion Gap BUN Creatinine Estimated GFR (MDRD) Glucose Calcium Phosphorus Magnesium Total Bilirubin AST ALT Alkaline Phosphatase Troponin I High Sens Total Protein Albumin Globulin Albumin/Globulin Ratio Lipase TSH Urine Color Urine Clarity Urine pH Ur Specific [place] Urine Protein Urine Glucose (UA) Urine Ketones Urine Occult Blood Urine Nitrite Urine Bilirubin Urine Urobilinogen Ur Leukocyte Esterase Ur Microscopic Review Urine Culture Comments Urine HCG, Qual PD Medical Decision Making - ED course Complexity details: reviewed results, re-evaluated patient, d/w patient ED course: Pt is a 32 yo F presenting with episodes of lightheadedness with at times having mid back and epigastric pain. She is concerned about her blood pressure being high and also reports feeling like she is unaware that her bladder is full. However, she has had no incontinence, she is able to void and has no urinary retention noted on bladder scan here. Initially tachycardic at triage but when left alone heart rate improves which is noted on her EKG.Lung sounds are clear. EKG reviewed and NSR. Labs including CBC, chemistries, troponin, UA reviewed and without any abnormalities. Pt initially expressed primary concern was regarding her blood pressure. Although slightly elevated in 140s-150s, discussed this would warrant close follow up with PCP as manual reading showed improvement even down to 120. Discussed plans for close follow up as she had been doing better here including ambulating to bathroom to void. Prior to discharge, she had an episode witnessed by RN where she felt lightheaded and both HR and BP raised. She also reported this was preceded by pain in her abdomen and back. IV was established and pt was given a dose of morphine for pain (mild epigastric and periumbilical tenderness on exam, no signs of peritonitis) and zofran along with fluids. Given recent Laparoscopic surgery, CT Abdomen pelvis was ordered. Patient was then signed out to Dr. Monet at shift change pending CT results and reevaluation.
[2023-10-03] MEDS ORDERED: iohexoL-300 100 ML VIAL ONE (18:29)
[2023-10-03] MEDS: SODIUM CHLORIDE 0.9% 1,000 ML IV STA ×2 (18:30→23:09)
[2023-10-03] MEDS: MORPHINE 2 MG/ML CARPUJECT IVP STA (18:31)
[2023-10-03] MEDS: ONDANSETRON 4 MG/2 ML VIAL IVP STA (18:31)
[2023-10-03] MEDS: iohexoL-300 100 ML VIAL IVP ONE (19:37)
--- NOTE | 2023-10-03 19:47 | CT Report ---
PROCEDURE: Abdomen/Pelvis W INDICATIONS: upper abd to back pain CONTRAST: 100mL Omni 300 TECHNIQUE: After the administration of intravenous contrast, a CT scan of the abdomen and pelvis was performed. Images were recorded and evaluated at appropriate window settings. Reformats: coronal and sagittal. F or radiation dose reduction, the following was used: automated exposure control, adjustment of mA and /or kV according to patient size. COMPARISON: 10/08/2022. FINDINGS: Image quality: Diagnostic. Lower chest: Unremarkable. Liver: No solid mass. Gallbladder and biliary tree: Spleen: No splenomegaly. Pancreas: No pancreatic ductal dilation. Adrenals: No adrenal nodule. Kidneys and ureters: No hydronephrosis. No renal cystic lesion which requires follow up. No solid mas s. Stomach, bowel and peritoneum: No bowel distension. No pathologic free fluid. There are a few locules of free air noted in the antidependent portions of the lower abdomen. One is noted in the anterior l eft lower abdomen/pelvis adjacent to linear appearing tract of subcutaneous soft tissue stranding. Ot her locules of air are seen in the right lower quadrant. There is also suggestion of linear soft tiss ue stranding near the umbilicus. Findings are suggestive of recent microscopic surgical procedure. Th e appendix is normal. No evidence for bowel obstruction. No acute inflammatory changes of bowel. Lymph nodes: No central or retroperitoneal adenopathy. Vessels: No infrarenal aortic aneurysm. PELVIS Reproductive organs: Unremarkable. Bladder: No abnormal wall thickening, accounting for underdistention. Pelvic lymph nodes: No pelvic adenopathy by size criteria. Bones: No aggressive osseous abnormality. Other: No significant ventral or inguinal hernia. IMPRESSION: Findings suggestive of possible recent laparoscopic surgery with a few locules of free air in the ant idependent portions of the lower abdomen/pelvis. Recommend correlation with clinical/surgical history . Otherwise, no source for free air identified on this examination. No acute abnormality seen in the abdomen or pelvis. No abnormal fluid collections. Reviewed by: Celio Tovar MD on 10/03/2023 7:46 PM PST Approved by: Celio Tovar MD on 10/03/2023 7:46 PM PST Station ID: [id number]
--- NOTE | 2023-10-03 21:09 | ED Physician Documentation ---
ED Addendum - Addendum Addendum: 10/03/23 21:03 I received signout/turnover of care on this patient from Dr. Sequeira; please see her note for complete H&P. In brief, patient c/o 3-4 days of back and epigastric pain. She also says she has decreased awareness of when her bladder is full although she has not had incontinence nor urinary retention. 2 weeks ago, patient underwent laparoscopic right oophorectomy. Tonight, she has normal CBC, ER abdominal panel, UA, and negative urine hCG. Dr. Sequeira had actually flagged the patient for discharge and printed out discharge instructions; however, ED RN reported that patient had another episode of tachycardia with hypertension and lightheadedness along with the epigastric and back pain. Thus, a CT of the abdomen pelvis is undertaken and the results are pending at the time of turnover of care. CT abdomen Campbell and pelvis is unremarkable with the only exception of "findings suggestive of possible recent laparoscopic surgery with a few locules of free air in the NT dependent portions of the lower abdomen/pelvis. Recommend correlation with clinical/surgical history. Otherwise, no source for free air identified on this examination. No acute abnormality seen in the abdomen or pelvis. No abnormal fluid collections." (Per radiologist's impression). I discussed these results with the patient. Included in this discussion is the finding of the small locules of free air in the lower abdomen/pelvis, likely a residual effect of her recent pelvic surgery. I contacted Dr. Chase (on-call VICE PRESIDENT OF CUSTOMER SERVICE for [facility]); she cannot say whether the locules of air would still be present 2 weeks after the procedure, but that it is possible. Most relevant to this CT finding is that on my exam, the patient has only mild tenderness to palpation across her lower abdomen without any rebound nor guarding. She is nontender in the mid/upper abdomen. She does not have a surgical abdominal exam (no peritoneal findings) on my exam. At this point, the etiology of the patient's symptoms remains unclear. Orthostatic vital signs were obtained and her pulse rate did increase (110s up to 130s), and BP increased, as well. She told the ED RN performing the orthostatic vital signs that she again felt lightheaded and as if she might pass out. She then ambulated to/back from bathroom without assistance. I discussed with the patient and the plan to go forward with discharging her home, but she repeatedly inconsistently insists that she feels unsafe going home. I had several, long discussions with the patient regarding lack of admission criteria at this point. I explained that this does not mean her symptoms and elevated blood pressure and pulse rate are normal, that does not mean she does not need further testing, and it does not mean diagnosis will not be eventually achieved; however, I did explain that further testing is safe and appropriate in the outpatient setting at this point. She continued to insist she cannot leave the hospital because she feels unsafe, that she will go home and pass out, and that she insists that she needs to be admitted. At this point, I am ordering a second/repeat CBC, ER abdominal panel. Additionally, I am ordering a TSH as well as a D-dimer and a 2-view chest x-ray. 10/04/23 00:28 The entirety of the second round of tests as documented above are normal (CBC, ER abdominal panel, TSH, D-dimer, chest x-ray; I also had ordered magnesium and phosphorus levels, and these are both normal, as well). The patient did continue to exhibit high blood pressure readings as well as intermittent tachycardia. At times, her pulse rate would get as low as the 90s, but most frequently was in the 100-1 20 range. This was sinus rhythm/sinus tachycardia on the monitor. I then ordered, and she was given, 5 mg of IV Lopressor. This had significant effect on her blood pressure (130s systolic and 80s-90s diastolic), as well as her pulse rate (80s-90s sinus rhythm without further episodes of tachycardia). Additionally, when she ambulated to/from the bathroom after this medication, she reported she felt well and did not have a recurrence of the symptoms that had been associated with standing and ambulating. She had been complaining of a headache at one point during the ED stay, resolved after 650 mg acetaminophen p.o. On this final reevaluation, I discussed the results of the latest test with her. She is in NAD and reports feeling much better. She is now comfortable with discharge home. I am electronically submitting a prescription for metoprolol to the [facility] in [place]. I am also providing a work excuse for the rest of this week. Return precautions were discussed. 10/04/23 01:26
[2023-10-03 22:03] VITALS: O2SAT 99
--- NOTE | 2023-10-03 22:23 | XRAY Report ---
PROCEDURE: Chest 2V INDICATIONS: lightheadedness TECHNIQUE: 2 views of the chest were acquired. COMPARISON: None. FINDINGS: Surgical changes and devices: None. Lungs and pleura: No pleural effusions or pneumothorax. Lungs are clear. Mediastinum: Mediastinal contours appear normal. Heart size is normal. Bones and chest wall: No suspicious bony lesions. Overlying soft tissues appear unremarkable. IMPRESSION: No acute cardiopulmonary process. Reviewed by: Michael Laws MD on 10/03/2023 10:22 PM PST Approved by: Michael Laws MD on 10/03/2023 10:22 PM [facility] Station ID: [id number]
[2023-10-03 22:27] LABS: BASOPHILS # (AUTO) 0.1 10^3/uL (0.0-0.1); BASOPHILS % (AUTO) 0.6 %; EOSINOPHILS # (AUTO) 0.1 10^3/uL (0.0-0.7); EOSINOPHILS % (AUTO) 1.1 %; HCT - HEMATOCRIT 39.6 % (37.0-47.0); LYMPHOCYTES # (AUTO) 2.9 10^3/uL (1.5-3.5); LYMPHOCYTES % (AUTO) 37.1 %; MEAN CORPUSCULAR HGB CONC 32.8 g/dL (32.0-36.0); MEAN CORPUSCULAR VOLUME 91.2 fL (81.0-99.0); MEAN PLATELET VOLUME 8.9 fL (7.9-10.8); MONOCYTES # (AUTO) 0.5 10^3/uL (0.0-1.0); MONOCYTES % (AUTO) 6.5 %; NEUTROPHILS # (AUTO) 4.3 10^3/uL (1.5-6.6); NEUTROPHILS % (AUTO) 54.4 %; PLT - PLATELET COUNT 366 10^3/uL (130-450); RED BLOOD COUNT 4.34 10^6/uL (4.20-5.40); RED CELL DISTRIBUTION WIDTH 13.2 % (12.0-15.0); WHITE BLOOD COUNT 7.9 x10^3/uL (4.8-10.8)
[2023-10-03 22:42] LABS: CALCIUM 9.4 mg/dL (8.5-10.3); CREATININE 0.6 mg/dL (0.6-1.3); PHOSPHORUS 3.5 mg/dL (2.5-5.0); POTASSIUM 4.1 mmol/L (3.5-4.5)
[2023-10-03 22:53] LABS: THYROID STIMULATING HORMONE 1.97 uIU/mL (0.34-5.60)
[2023-10-03] MEDS: ACETAMINOPHEN 325 MG TABLET PO STA (23:34)
[2023-10-03] MEDS: METOPROLOL 5 MG/5 ML VIAL IVP STA (23:35)
[2023-10-04 00:49] VITALS: BP 130/95
--- NOTE | 2023-10-04 22:59 | ED Physician Documentation ---
ED Addendum - Addendum Addendum: 10/04/23 22:59 Patient called in and had questions about her CT scan and we went over the results together. Her particular question is if there were any abnormalities in the kidneys which there did not seem to be.
== END 2023-10-04 00:49 | disposition home or self-care (01) ==
LOC: ED 15:31
DX: R42 Dizziness and giddiness (principal); R10.13 Epigastric pain; M54.6 Pain in thoracic spine; R03.0 Elevated blood-pressure reading, without diagnosis of hypertension; R93.5 Abnormal findings on diagnostic imaging of other abdominal regions, including retroperitoneum
CPT/HCPCS: 36415; 71046; 74177; 80048; 80053; 81003; 81025; 83690; 83735; 84100; 84443; 84484; 85025; 85379; 93005; 96361; 96374; 96375; 99284; 99285; A9270; Q9967; 81001; 87086

== ENCOUNTER 2023-10-12 00:06 | Outpatient (CLI) | payer OTHER | END 2023-10-12 23:59 | disposition critical access hospital (66) | LOC: EMS 00:06 | DX: R10.12 Left upper quadrant pain (principal); R10.13 Epigastric pain; R10.812 Left upper quadrant abdominal tenderness; R10.816 Epigastric abdominal tenderness; M54.2 Cervicalgia; M25.512 Pain in left shoulder; H53.149 Visual discomfort, unspecified; I10 Essential (primary) hypertension | CPT/HCPCS: A0425; A0429 ==

== ENCOUNTER 2023-10-12 00:30 | Emergency (ER) | payer OTHER ==
--- NOTE | 2023-10-12 00:43 | ED Physician Documentation ---
History of Present Illness - Stated complaint Stated Complaint: CHEST/EPIGASTRIC PAIN - History obtained from History obtained from: Patient - Additonal information Additional information: 32yF with pmh raoul, possible SLE vs MS currently being worked up (MRI head/c spine yesterday), recent ED workup for a myriad of symptoms 8 days ago without any acute findings, p/w many issues tonight. These include insomnia, chest pain, epigastric pain, headache, sinus pressure, odynophagia, "swollen lymph nodes" in the neck, upper and lower back pain, myalgias, tingling in the legs, vision changes, shooting nerve pain, and having to set timers to remind herself to pee. Some combination of these symptoms have bothered her in varying degrees since 2019, with worsening symptoms when she had an ovarian cyst rupture in July 2023, with subsequent worsening again after BL salpingectomy and R oopherectomy last month. Patient denies fever, dysuria, increased frequency, nausea, vomiting or diarrhea. normal BM yesterday. Review of Systems Constitutional: reports: Myalgias, Fatigue. denies: Fever, Chills Eyes: reports: Other (vision spots) Ears: reports: Ear pain Nose: reports: Congestion, Sinus pressure / pain Throat: reports: Sore throat Cardiac: reports: Chest pain / pressure Respiratory: denies: Dyspnea, Cough GI: reports: Abdominal Pain. 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, Other HEENT: Other - Present Medications Home Medications: Ambulatory Orders Medication Instructions Recorded Confirmed Duloxetine HCl [Cymbalta] 30 mg PO DAILY 09/18/23 10/12/23 Methylphenidate HCl [Relexxii] 54 mg PO DAILY 09/18/23 10/12/23 hydrOXYzine pamoate [Vistaril] 25 mg PO HS PRN MDD 50mg 09/18/23 10/12/23 Acetaminophen [Tylenol] 650 mg PO Q6H PRN #30 tab 09/19/23 10/12/23 Ondansetron Odt [Zofran Odt] 4 mg TL Q6H PRN #30 tablet 09/19/23 10/12/23 Hydroxychloroquine [Plaquenil] 200 mg PO DAILY 10/03/23 10/12/23 Metoprolol Tartrate [Lopressor] 25 mg PO BID #30 tablet 10/04/23 10/12/23 Losartan Potassium 25 mg PO DAILY 10/12/23 10/12/23 - Allergies Allergies/Adverse Reactions: Allergies Allergy/AdvReac Type Severity Reaction Status Date / Time Iodinated Contrast Media Allergy Hives Verified 10/12/23 00:50 sulfamethoxazole Allergy Respiratory Verified 10/12/23 00:50 [From Bactrim] trimethoprim [From Bactrim] Allergy Respiratory Verified 10/12/23 00:50 - Social History Does the pt smoke?: No Smoking Status: Never smoker Does the pt drink ETOH?: No Does the pt have substance abuse?: No - Immunizations Immunizations are current?: Yes - POLST Patient has POLST: No PD ED PE NORMAL - Vitals Vital signs reviewed: Yes - General General: Alert and oriented X 3, No acute distress, Well developed/nourished - HEENT HEENT: Atraumatic, PERRL, EOMI, Moist mucous membranes, Pharynx benign - Neck Neck: Supple, no meningeal sign - Cardiac Cardiac: RRR - Respiratory Respiratory: No respiratory distress, Clear bilaterally - Abdomen Abdomen: Non tender, Non distended - Derm Derm: Normal color, Warm and dry - Extremities Extremities: No deformity, Normal ROM s pain, No edema - Neuro Neuro: Alert and oriented X 3, 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 Relevant findings are: Rate: Rate (enter#) (82) Rhythm: NSR [place]: Normal Intervals: Normal [place] QRS: Normal Ischemia: Normal ST segments - Labs Labs: Laboratory Tests 10/12/23 10/12/23 10/12/23 00:37 00:37 01:36 WBC 10.2 RBC 4.44 Hgb 13.2 Hct 39.6 MCV 89.2 MCH 29.7 MCHC 33.3 RDW 13.1 Plt Count 370 MPV 9.1 Neut # (Auto) 6.1 Lymph # (Auto) 3.2 [place] # (Auto) 0.7 Eos # (Auto) 0.1 Baso # (Auto) 0.1 Absolute Nucleated RBC 0.00 Nucleated RBC % 0.0 Sodium 138 Potassium 3.4 L Chloride 104 Carbon Dioxide 24 Anion Gap 10.0 BUN 7 Creatinine 0.6 Estimated GFR (MDRD) 115 Glucose 107 H Calcium 9.8 Total Bilirubin 0.6 AST 15 ALT 16 Alkaline Phosphatase 90 Total Protein 7.8 Albumin 4.4 Globulin 3.4 Albumin/Globulin Ratio 1.3 Lipase 10 L Urine Color YELLOW Urine Clarity CLEAR Urine pH 7.0 Ur Specific [place] <=1.005 Urine Protein NEGATIVE Urine Glucose (UA) NEGATIVE Urine Ketones 15 H Urine Occult Blood TRACE-INTA Urine Nitrite NEGATIVE Urine Bilirubin NEGATIVE Urine Urobilinogen 0.2 (NORMAL) Ur Leukocyte Esterase NEGATIVE Ur Microscopic Review NOT INDICATED Urine Culture Comments NOT INDICATED Urine HCG, Qual NEGATIVE PD Medical Decision Making - ED course ED course: 32yF currently being worked up for rheumatologic, autoimmune and neurologic disease presents with a large variety of symptoms spanning several months to y ears, worsening acutely tonight. CBC, abdominal panel, u/a, hcg unremarkable. Patient had some improvement in her epigastric pain, body aches, headache and back pain with IV toradol, oral flexeril, IV pepcid. Symptomatic care discussed. plan to f/u outpatient with her specialists. return precautions given. Departure - Departure Disposition: 01 Home, Self Care Clinical Impression: Body aches, Epigastric pain, Back pain, Headache Condition: Stable Comments: You were seen in the emergency department for medical evaluation. While your vital signs, physical exam, and lab tests today looked normal, I do believe you have a long path ahead in your healing journey and hope to provide some information that may be useful. [facility] - a local group with complimentary medicine practitioners and wellness resources. I personally highly recommend Aziza Blackman, who practices craniosacral therapy in [place]. [email or web address] There is an event tomorrow at [employer] at 4pm (see flyer). Please also follow-up with your specialists for further diagnostic workup and return to the emergency department if you have any new or worsening symptoms or other concerns. Forms: PCP List
[2023-10-12 01:35] LABS: BASOPHILS # (AUTO) 0.1 10^3/uL (0.0-0.1); BASOPHILS % (AUTO) 0.7 %; EOSINOPHILS # (AUTO) 0.1 10^3/uL (0.0-0.7); EOSINOPHILS % (AUTO) 0.8 %; HCT - HEMATOCRIT 39.6 % (37.0-47.0); HGB - HEMOGLOBIN 13.2 g/dL (12.0-16.0); LYMPHOCYTES # (AUTO) 3.2 10^3/uL (1.5-3.5); LYMPHOCYTES % (AUTO) 31.7 %; MEAN CORPUSCULAR HEMOGLOBIN 29.7 pg (27.0-31.0); MEAN CORPUSCULAR HGB CONC 33.3 g/dL (32.0-36.0); MEAN CORPUSCULAR VOLUME 89.2 fL (81.0-99.0); MEAN PLATELET VOLUME 9.1 fL (7.9-10.8); MONOCYTES # (AUTO) 0.7 10^3/uL (0.0-1.0); MONOCYTES % (AUTO) 6.5 %; NEUTROPHILS # (AUTO) 6.1 10^3/uL (1.5-6.6); PLT - PLATELET COUNT 370 10^3/uL (130-450); RED BLOOD COUNT 4.44 10^6/uL (4.20-5.40); RED CELL DISTRIBUTION WIDTH 13.1 % (12.0-15.0); WHITE BLOOD COUNT 10.2 x10^3/uL (4.8-10.8)
[2023-10-12 01:43] LABS: BILIRUBIN,URINE NEGATIVE (NEGATIVE); GLUCOSE, URINE (UA) NEGATIVE (NEGATIVE); KETONES,URINE (UA) 15 mg/dL (NEGATIVE); LEUKOCYTE ESTERASE, URINE NEGATIVE (NEGATIVE); NITRITE,URINE NEGATIVE (NEGATIVE); OCCULT BLOOD,URINE TRACE-INTA (NEGATIVE); PROTEIN,URINE NEGATIVE (NEGATIVE); UROBILINOGEN,URINE 0.2 (NORMAL) E.U./dL (NORMAL)
[2023-10-12 01:47] LABS: CLARITY,URINE CLEAR (CLEAR); HCG UR QUAL NEGATIVE
[2023-10-12] MEDS: CYCLOBENZAPRINE 10 MG TABLET PO STA (01:48)
[2023-10-12] MEDS: KETOROLAC 30 MG/ML VIAL IM STA (01:48)
[2023-10-12 01:49] LABS: ALBUMIN 4.4 g/dL (3.2-5.5); ALBUMIN/GLOBULIN RATIO 1.3 (1.0-2.2); BILIRUBIN,TOTAL 0.6 mg/dL (0.2-1.0); CALCIUM 9.8 mg/dL (8.5-10.3); CREATININE 0.6 mg/dL (0.6-1.3); POTASSIUM 3.4 mmol/L (3.5-4.5); TOTAL PROTEIN 7.8 g/dL (6.4-8.9)
--- NOTE | 2023-10-12 01:53 | ED Physician Documentation ---
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, Other HEENT: Other - Present Medications Home Medications: Ambulatory Orders Medication Instructions Recorded Confirmed Duloxetine HCl [Cymbalta] 30 mg PO DAILY 09/18/23 10/12/23 Methylphenidate HCl [Relexxii] 54 mg PO DAILY 09/18/23 10/12/23 hydrOXYzine pamoate [Vistaril] 25 mg PO HS PRN MDD 50mg 09/18/23 10/12/23 Acetaminophen [Tylenol] 650 mg PO Q6H PRN #30 tab 09/19/23 10/12/23 Ondansetron Odt [Zofran Odt] 4 mg TL Q6H PRN #30 tablet 09/19/23 10/12/23 Hydroxychloroquine [Plaquenil] 200 mg PO DAILY 10/03/23 10/12/23 Metoprolol Tartrate [Lopressor] 25 mg PO BID #30 tablet 10/04/23 10/12/23 Losartan Potassium 25 mg PO DAILY 10/12/23 10/12/23 - Allergies Allergies/Adverse Reactions: Allergies Allergy/AdvReac Type Severity Reaction Status Date / Time Iodinated Contrast Media Allergy Hives Verified 10/12/23 00:50 sulfamethoxazole Allergy Respiratory Verified 10/12/23 00:50 [From Bactrim] trimethoprim [From Bactrim] Allergy Respiratory Verified 10/12/23 00:50 - Social History Does the pt smoke?: No Smoking Status: Never smoker Does the pt drink ETOH?: No Does the pt have substance abuse?: No - Immunizations Immunizations are current?: Yes - POLST Patient has POLST: No PD ED PE NORMAL - Vitals Vital signs reviewed: Yes - General General: Alert and oriented X 3, No acute distress, Well developed/nourished - HEENT HEENT: Atraumatic, PERRL, EOMI, Moist mucous membranes, Pharynx benign - Neck Neck: Supple, no meningeal sign - Cardiac Cardiac: RRR - Respiratory Respiratory: No respiratory distress, Clear bilaterally - Abdomen Abdomen: Non tender, Non distended - Derm Derm: Normal color, Warm and dry - Extremities Extremities: No deformity - Neuro Neuro: No motor deficit, No sensory deficit - Psych Psych: Other (depressed affect) Results - Vitals Vitals: Vital Signs - 24 hr 10/12/23 00:38 Temperature 36.8 C Heart Rate 81 Respiratory 19 Rate Blood Pressure 143/99 H O2 Saturation 99 Oxygen O2 Source Room air - Labs Labs: Laboratory Tests 10/12/23 10/12/23 10/12/23 00:37 00:37 01:36 WBC 10.2 RBC 4.44 Hgb 13.2 Hct 39.6 MCV 89.2 MCH 29.7 MCHC 33.3 RDW 13.1 Plt Count 370 MPV 9.1 Neut # (Auto) 6.1 Lymph # (Auto) 3.2 [place] # (Auto) 0.7 Eos # (Auto) 0.1 Baso # (Auto) 0.1 Absolute Nucleated RBC 0.00 Nucleated RBC % 0.0 Sodium 138 Potassium 3.4 L Chloride 104 Carbon Dioxide 24 Anion Gap 10.0 BUN 7 Creatinine 0.6 Estimated GFR (MDRD) 115 Glucose 107 H Calcium 9.8 Total Bilirubin 0.6 AST 15 ALT 16 Alkaline Phosphatase 90 Total Protein 7.8 Albumin 4.4 Globulin 3.4 Albumin/Globulin Ratio 1.3 Lipase 10 L Urine Color YELLOW Urine Clarity CLEAR Urine pH 7.0 Ur Specific [place] <=1.005 Urine Protein NEGATIVE Urine Glucose (UA) NEGATIVE Urine Ketones 15 H Urine Occult Blood TRACE-INTA Urine Nitrite NEGATIVE Urine Bilirubin NEGATIVE Urine Urobilinogen 0.2 (NORMAL) Ur Leukocyte Esterase NEGATIVE Ur Microscopic Review NOT INDICATED Urine Culture Comments NOT INDICATED Urine HCG, Qual NEGATIVE Departure - Departure Comments: You were seen in the emergency department for medical evaluation. While your vital signs, physical exam, and lab tests today looked normal, I do believe you have a long path ahead in your healing journey and hope to provide some in formation that may be useful. [facility] - a local group with complimentary medicine practitioners and wellness resources. I personally highly recommend Aziza Blackman, who practices craniosacral therapy in [place]. [email or web address] There is an event tomorrow at [employer] at 4pm (see flyer). Please also follow-up with your specialists for further diagnostic workup and return to the emergency department if you have any new or worsening symptoms or other concerns. Forms: PCP List
[2023-10-12] MEDS: FAMOTIDINE 20 MG/2 ML VIAL IVP STA (02:03)
[2023-10-12 02:54] VITALS: BP 129/86; O2SAT 100
== END 2023-10-12 02:49 | disposition home or self-care (01) ==
LOC: EDUNIT# → ED 00:30
DX: R10.13 Epigastric pain (principal); M54.9 Dorsalgia, unspecified; R51.9 Headache, unspecified; E06.3 Autoimmune thyroiditis; Z87.442 Personal history of urinary calculi; Z79.899 Other long term (current) drug therapy
CPT/HCPCS: 36415; 80053; 81003; 81025; 83690; 85025; 96372; 96374; 99283; A9270; 81001; 87086

== ENCOUNTER 2023-11-02 18:32 | Outpatient (CLI) | payer OTHER ==
--- NOTE | 2023-11-03 10:46 | XRAY Report ---
PROCEDURE: Chest 2V INDICATIONS: BRONCHITIS TECHNIQUE: 2 views of the chest were acquired. COMPARISON: None. FINDINGS: Surgical changes and devices: None. Lungs and pleura: No pleural effusions or pneumothorax. Increased bronchovascular markings in bilate ral hilar region are seen with mild bronchial wall thickening. No focal infiltrate. Mediastinum: Mediastinal contours appear normal. Heart size is normal. Bones and chest wall: No suspicious bony lesions. Overlying soft tissues appear unremarkable. IMPRESSION: Finding is suggestive of reactive airway disease such as bronchitis or viral illness. No definite focal infiltrate. No pleural effusion or pneumothorax. Reviewed by: Clarence Pacheco MD on 11/03/2023 10:45 AM PDT Approved by: Clarence Pacheco MD on 11/03/2023 10:45 AM PDT Station ID: [id number]
== END 2023-11-02 18:33 | disposition home or self-care (01) ==
LOC: DI 18:32
PROVIDERS: ATTEND Registered Nurse
DX: J40 Bronchitis, not specified as acute or chronic (principal)

== ENCOUNTER 2024-01-13 17:00 | Emergency (ER) | payer OTHER ==
[2024-01-13 17:15] VITALS: O2SAT 100
[2024-01-13 19:56] LABS: BASOPHILS # (AUTO) 0.1 10^3/uL (0.0-0.1); EOSINOPHILS # (AUTO) 0.3 10^3/uL (0.0-0.7); EOSINOPHILS % (AUTO) 3.1 %; HCT - HEMATOCRIT 39.6 % (37.0-47.0); HGB - HEMOGLOBIN 12.8 g/dL (12.0-16.0); LYMPHOCYTES # (AUTO) 3.1 10^3/uL (1.5-3.5); LYMPHOCYTES % (AUTO) 32.5 %; MEAN CORPUSCULAR HEMOGLOBIN 29.4 pg (27.0-31.0); MEAN CORPUSCULAR HGB CONC 32.3 g/dL (32.0-36.0); MEAN PLATELET VOLUME 8.8 fL (7.9-10.8); MONOCYTES # (AUTO) 0.7 10^3/uL (0.0-1.0); MONOCYTES % (AUTO) 7.1 %; NEUTROPHILS # (AUTO) 5.4 10^3/uL (1.5-6.6); NEUTROPHILS % (AUTO) 56.1 %; PLT - PLATELET COUNT 424 10^3/uL (130-450); RED BLOOD COUNT 4.35 10^6/uL (4.20-5.40); RED CELL DISTRIBUTION WIDTH 13.2 % (12.0-15.0); WHITE BLOOD COUNT 9.6 x10^3/uL (4.8-10.8)
[2024-01-13 20:13] LABS: PARTIAL THROMBOPLASTIN TIME 38.6 secs (24.9-33.3)
[2024-01-13 20:17] LABS: INR 1.2 (0.8-1.2); PT - PROTHROMBIN TIME 12.7 secs (9.9-12.6)
[2024-01-13 20:20] LABS: ALBUMIN 4.5 g/dL (3.2-5.5); ALBUMIN/GLOBULIN RATIO 1.7 (1.0-2.2); BILIRUBIN,TOTAL 0.3 mg/dL (0.2-1.0); CALCIUM 9.4 mg/dL (8.5-10.3); CREATININE 0.7 mg/dL (0.6-1.3); CRP - C-REACTIVE PROTEIN 0.6 mg/dL (<0.5); POTASSIUM 4.1 mmol/L (3.5-4.5); TOTAL PROTEIN 7.1 g/dL (6.4-8.9)
--- NOTE | 2024-01-13 20:50 | ED Physician Documentation ---
History of Present Illness - Stated complaint Stated Complaint: BILAT FLUID IN LEGS - Chief complaint Chief Complaint: Trauma Ext - History obtained from History obtained from: Patient - History of Present Illness Timing: How many days ago (3) Pain level max: 3 Pain level now: 3 - Additonal information Additional information: Patient is a 33-year-old female who states that she has a undiagnosed connective tissue disorder for which she sees rheumatology. She states that she noted that her legs had area of dusky discoloration mainly in the calves and feet there were also some areas of erythema with warmth. No fevers. No chills. She does not smoke or vape. No changes to her medications. Has not had similar symptoms previously. She states that she has had some low back pain over the past few days, she states her legs are not really hurting. The legs became worse today so she uses decided to come into the emergency department. Review of Systems Constitutional: denies: Fever, Chills Nose: denies: Rhinorrhea / runny nose, Congestion GI: denies: Vomiting, Diarrhea : denies: Incontinent Skin: denies: Rash Musculoskeletal: denies: Neck pain Neurologic: denies: Focal weakness, Numbness, Headache PD PAST MEDICAL HISTORY - Past Medical History Cardiovascular: None Respiratory: None Neuro: None Endocrine/Autoimmune: Other GI: None : Kidney stones HEENT: None Psych: ADD/ADHD Musculoskeletal: Fatigue Derm: Eczema Other Past Medical History: undifferentiated connective tissue disease - Past Surgical History Past Surgical History: Yes General: Other 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, 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, Other HEENT: Other - Present Medications Home Medications: Ambulatory Orders Medication Instructions Recorded Confirmed Duloxetine HCl [Cymbalta] 30 mg PO DAILY 09/18/23 10/12/23 Methylphenidate HCl [Relexxii] 54 mg PO DAILY 09/18/23 10/12/23 hydrOXYzine pamoate [Vistaril] 25 mg PO HS PRN MDD 50mg 09/18/23 10/12/23 Acetaminophen [Tylenol] 650 mg PO Q6H PRN #30 tab 09/19/23 10/12/23 Ondansetron Odt [Zofran Odt] 4 mg TL Q6H PRN #30 tablet 09/19/23 10/12/23 Hydroxychloroquine [Plaquenil] 200 mg PO DAILY 10/03/23 10/12/23 Metoprolol Tartrate [Lopressor] 25 mg PO BID #30 tablet 10/04/23 10/12/23 Losartan Potassium 25 mg PO DAILY 10/12/23 10/12/23 - Allergies Allergies/Adverse Reactions: Allergies Allergy/AdvReac Type Severity Reaction Status Date / Time Iodinated Contrast Media Allergy Hives Verified 01/13/24 19:11 sulfamethoxazole Allergy Respiratory Verified 01/13/24 19:11 [From Bactrim] trimethoprim [From Bactrim] Allergy Respiratory Verified 01/13/24 19:11 - Social History Does the pt smoke?: No Smoking Status: Never smoker Does the pt drink ETOH?: No Does the pt have substance abuse?: No - Immunizations Immunizations are current?: Yes - POLST Patient has POLST: No PD ED PE NORMAL - Vitals Vital signs reviewed: Yes - General General: Alert and oriented X 3, No acute distress - HEENT HEENT: PERRL, Moist mucous membranes - Neck Neck: Supple, no meningeal sign - Cardiac Cardiac: RRR, Strong equal pulses - Respiratory Respiratory: No respiratory distress, Clear bilaterally - Abdomen Abdomen: Soft, Non tender, Non distended - Derm Derm: Warm and dry - Extremities Extremities: No calf tenderness / cord - Neuro Neuro: Alert and oriented X 3 - Psych Psych: Normal mood, Normal affect - Free text exam Free text exam: There is a dusky discoloration to the bilateral feet and patchy dusky discoloration over the bilateral lower extremities from the knees down. There are a few small patches of erythema that are warmer than the surrounding area, these are light pink in color. She has brisk cap refill and normal pulses. Normal DP and PT pulses in the bilateral lower extremity. Normal sensation in the legs. Results - Vitals Vitals: Vital Signs - 24 hr 01/13/24 01/13/24 17:08 21:20 Temperature 36.3 C L 36.5 C Heart Rate 115 H 85 Respiratory 18 16 Rate Blood Pressure 133/95 H 153/110 H O2 Saturation 100 100 Oxygen O2 Source Room air - Labs Labs: Laboratory Tests 01/13/24 01/13/24 01/13/24 19:50 19:50 19:50 WBC 9.6 RBC 4.35 Hgb 12.8 Hct 39.6 MCV 91.0 MCH 29.4 MCHC 32.3 RDW 13.2 Plt Count 424 MPV 8.8 Neut # (Auto) 5.4 Lymph # (Auto) 3.1 [place] # (Auto) 0.7 Eos # (Auto) 0.3 Baso # (Auto) 0.1 Absolute Nucleated RBC 0.00 Nucleated RBC % 0.0 ESR 43 H PT 12.7 H INR 1.2 APTT 38.6 H Sodium Potassium Chloride Carbon Dioxide Anion Gap BUN Creatinine Estimated GFR (MDRD) Glucose Calcium Total Bilirubin AST ALT Alkaline Phosphatase C-Reactive Protein Total Protein Albumin Globulin Albumin/Globulin Ratio Lipase Urine Color Urine Clarity Urine pH Ur Specific [place] Urine Protein Urine Glucose (UA) Urine Ketones Urine Occult Blood Urine Nitrite Urine Bilirubin Urine Urobilinogen Ur Leukocyte Esterase Urine RBC Urine WBC Ur Squamous Epith Cells Urine Bacteria Urine Mucus Ur Microscopic Review Urine Culture Comments Urine HCG, Qual 01/13/24 01/13/24 19:50 21:04 WBC RBC Hgb Hct MCV MCH MCHC RDW Plt Count MPV Neut # (Auto) Lymph # (Auto) [place] # (Auto) Eos # (Auto) Baso # (Auto) Absolute Nucleated RBC Nucleated RBC % ESR PT INR APTT Sodium 139 Potassium 4.1 Chloride 103 Carbon Dioxide 28 Anion Gap 8.0 BUN 12 Creatinine 0.7 Estimated GFR (MDRD) 96 Glucose 95 Calcium 9.4 Total Bilirubin 0.3 AST 13 ALT 12 Alkaline Phosphatase 79 C-Reactive Protein 0.6 Total Protein 7.1 Albumin 4.5 Globulin 2.6 Albumin/Globulin Ratio 1.7 Lipase 32 Urine Color YELLOW Urine Clarity HAZY Urine pH 6.0 Ur Specific [place] >=1.030 H Urine Protein TRACE Urine Glucose (UA) NEGATIVE Urine Ketones NEGATIVE Urine Occult Blood SMALL H Urine Nitrite NEGATIVE Urine Bilirubin NEGATIVE Urine Urobilinogen 0.2 (NORMAL) Ur Leukocyte Esterase NEGATIVE Urine RBC 6-10 H Urine WBC 0-3 Ur Squamous Epith Cells MOD Squamous H Urine Bacteria Few Urine Mucus Few Strands Ur Microscopic Review INDICATED Urine Culture Comments NOT INDICATED Urine HCG, Qual NEGATIVE - Rads (name of study) Duplex ultrasound bilateral lower extremity Relevant Findings:: Final report received, See rad report PD Medical Decision Making - ED course Complexity details: reviewed results, re-evaluated patient, considered differe ntial, d/w patient ED course: No acute findings on ultrasound. No significant lab abnormalities. A pulse oximeter was placed on all of her toes, they all have 100% SpO2. She has brisk cap refill. The dusky discoloration seem to resolve with elevation of the legs. Even when the areas were dusky in color, they blanched easily. No rash. No evidence of cellulitis or abscess. No evidence of DVT. No evidence of arterial occlusion. Normal pulses. As the symptoms seem to be improving, we will have her monitor at home and follow-up with her meatcutter for further care. Sed rate is mildly elevated, CRP is normal. Patient counseled regarding signs and symptoms for which I believe and urgent re-evaluation would be necessary. Patient with good understanding of and agreement to plan and is comfortable going home at this time This document was made in part using voice recognition software. While efforts are made to proofread this document, sound alike and grammatical errors may occur. Departure - Departure Disposition: 01 Home, Self Care Clinical Impression: Discoloration of skin of multiple sites of lower extremity Condition: Good Instructions: ED Edema Legs Bilateral Follow-Up: FATOU HIDALGO ARNP [Primary Care Provider] - Modesto Altamirano MD [Physician No Access] - Within 1 week Comments: The cause of your symptoms is unclear today. Your CBC, CMP and CRP are normal. Your CRP is 0.6. Your sed rate was mildly elevated at 43. Your coagulation studies do not show any significant abnormalities. Your ultrasound was normal. Your pulses are normal. Recommend increasing fluid intake at home, make sure you are drinking plenty of water. Elevate your legs whenever possible and follow-up closely with your meatcutter as this could be due to your connective tissue disorder. Please return if you worsen, especially if you develop pain or other new or worrisome symptoms. Forms: PCP List Discharge Date/Time: 01/13/24 21:20
[2024-01-13 21:13] LABS: BILIRUBIN,URINE NEGATIVE (NEGATIVE); GLUCOSE, URINE (UA) NEGATIVE (NEGATIVE); KETONES,URINE (UA) NEGATIVE (NEGATIVE); LEUKOCYTE ESTERASE, URINE NEGATIVE (NEGATIVE); NITRITE,URINE NEGATIVE (NEGATIVE); OCCULT BLOOD,URINE SMALL (NEGATIVE); PROTEIN,URINE TRACE mg/dL (NEGATIVE); UROBILINOGEN,URINE 0.2 (NORMAL) E.U./dL (NORMAL)
[2024-01-13 21:14] LABS: CLARITY,URINE HAZY (CLEAR); HCG UR QUAL NEGATIVE
--- NOTE | 2024-01-13 21:14 | Ultrasound Report ---
PROCEDURE: Duplex Ext Veins Bilateral INDICATIONS: Bilateral lower extremity cyanosis excellent TECHNIQUE: Real-time imaging, as well as color and pulse Doppler interrogation, were performed of the deep veins of both legs from the inguinal ligament to the popliteal fossa. Attempted visualization of the calf veins was performed. COMPARISON: None FINDINGS: The deep veins are normally compressible, and free of intraluminal thrombus. Color and pu lse Doppler demonstrate normal phasic intravascular flow. There is normal augmentation response to d istal compression maneuver. IMPRESSION: No deep venous thrombosis of the visualized lower extremities. Reviewed by: Harriet Chapin MD, PhD on 01/13/2024 9:13 PM PDT Approved by: Harriet Chapin MD, PhD on 01/13/2024 9:13 PM PDT Station ID: [id number]
[2024-01-13 21:24] VITALS: BP 153/110
[2024-01-13 21:32] LABS: BACTERIA,URINE Few /HPF (None Seen); MUCUS,URINE Few Strands; SQUAMOUS EPITHELIAL CELL,UR MOD Squamous (<= Few); WBC,URINE 0-3 /HPF (0-5)
== END 2024-01-13 21:20 | disposition home or self-care (01) ==
LOC: ED 17:00
DX: L53.8 Other specified erythematous conditions (principal); M54.50 Low back pain, unspecified; Z87.442 Personal history of urinary calculi; Z87.39 Personal history of other diseases of the musculoskeletal system and connective tissue; Z79.899 Other long term (current) drug therapy
CPT/HCPCS: 36415; 80053; 81001; 81003; 81025; 83690; 85025; 85610; 85651; 85730; 86140; 87086; 93970; 99284

== ENCOUNTER 2024-03-22 08:00 | Outpatient (CLI) | payer OTHER ==
--- NOTE | 2024-03-25 12:05 | XRAY Report ---
PROCEDURE: Chest 2V INDICATIONS: COUGH TECHNIQUE: 2 views of the chest were acquired. COMPARISON: 11/02/2023 FINDINGS: Surgical changes and devices: None. Lungs and pleura: No pleural effusions or pneumothorax. Lungs are clear. Mediastinum: Mediastinal contours appear normal. Heart size is normal. Bones and chest wall: No suspicious bony lesions. Overlying soft tissues appear unremarkable. IMPRESSION: No acute cardiopulmonary process. Reviewed by: Srinivasa Meza MD on 03/25/2024 12:04 PM PDT Approved by: Srinivasa Meza MD on 03/25/2024 12:04 PM PDT Station ID: [id number]
== END 2024-03-22 23:59 | disposition home or self-care (01) ==
LOC: DI.S 08:00
PROVIDERS: ATTEND Emergency Medicine
DX: J40 Bronchitis, not specified as acute or chronic (principal)